=== PATIENT | male | born 1950 | race Caucasian/White ===

== ENCOUNTER 2016-06-16 07:26 | Emergency (ER) | payer OTHER ==
[~2016-06-16] VITALS: Ht 189.2 cm; Wt 90.7 kg
--- NOTE | 2016-06-16 07:39 | ED CARDIAC/CP/PALPITATIONS ---
History of Present Illness General Chief Complaint: Chest Pain Stated Complaint: CP Source: patient, old records Exam Limitations: no limitations Vital Signs & Intake/Output Vital Signs & Intake/Output Vital Signs Date Time Temp Pulse Resp B/P Pulse O2 O2 Flow FiO2 Ox Delivery Rate 06/16 1119 74 109/56 98 Room Air 06/16 1104 74 105/63 06/16 1025 88 18 130/69 99 Nasal 2.0L Cannula 06/16 1021 97.8 88 18 125/71 98 Room Air 06/16 1004 88 125/71 06/16 0959 92 20 130/66 98 Room Air 06/16 0910 97.0 78 20 136/70 98 Room Air 06/16 0836 96 06/16 0821 98 Room Air 06/16 0736 96.6 98 20 203/92 98 Room Air Room Air Allergies Coded Allergies: No Known Allergies (06/16/16) Reconcile Medications No Known Home Medications Triage Note: PT TO ED WITH 2 WEEKS HISTORY OF SOB AFTER SHOVELING SNOW, ALSO C/O CHEST PAIN WITH DEEP INSPIRATION, "IT COMES THEN IT GOES AWAY". 98% ON ROOM AIR. TO [place] FOR EKG. Triage Nurses Notes Reviewed? yes HPI: Patient presented with a 2 week history of chest pain. Patient states it started while shoveling. Patient describes it as a sharp tight pain that increased with movement and inspiration. Patient states that the pain has been controlled with aspirin however this morning he felt like he could not catch his breath and the pain continued despite taking aspirin she comes to the emergency room. The pain is described substernally and along his entire sternum. The pain increased with inspiration, movement and exertion. Patient states that the pain has never been totally relieved over the past 2 weeks but after taking aspirin but has decreased to approximately 2 out of 10. This morning the pain is 10 out of 10. Patient states that he was diagnosed with hypertension years ago but he does not like taking medication so has not been taking them. Patient continues to smoke. (SYBIL ALMAZAN,LYNSEY Green) Past History Travel History Traveled to [place] past 21 day No Medical History Any Pertinent Medical History? 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 No (SYBIL ALMAZAN,LYNSEY Green) Review of Systems Review of Systems Constitutional: Reports: no symptoms. EENTM: Reports: no symptoms. Respiratory: Reports: see HPI, short of breath. Cardiovascular: Reports: see HPI, chest pain. GI: Reports: no symptoms. Genitourinary: Reports: no symptoms. Musculoskeletal: Reports: no symptoms. Skin: Reports: no symptoms. Neurological/Psychological: Reports: no symptoms. Hematologic/Endocrine: Reports: no symptoms. Immunologic/Allergic: Reports: no symptoms. All Other Systems: Reviewed and Negative (SYBIL ALMAZAN,LYNSEY Green) Physical Exam Physical Exam General Appearance: well developed/nourished, alert, awake, anxious, moderate distress Head: atraumatic, normal appearance Eyes: Bilateral: PERRL, EOMI. Ears, Nose, Throat: normal pharynx, normal ENT inspection, hearing grossly normal Neck: normal inspection, supple, full range of motion Respiratory: chest non-tender, no respiratory distress, decreased breath sounds, wheezing (EXP), NO PAIN TO [place] Cardiovascular: regular rate/rhythm, normal peripheral pulses Gastrointestinal: normal bowel sounds, soft, non-tender, no organomegaly Rectal: normal exam, normal rectal tone, heme negative stool Back: normal inspection, normal range of motion Extremities: normal inspection, normal capillary refill, normal range of motion, no edema Neurologic/Psych: no motor/sensory deficits, awake, alert, oriented x 3, normal gait, normal mood/affect Skin: intact, normal color, warm/dry Lymphatic: no anterior cervical jordan Core Measures ACS in differential dx? Yes ASA ordered for poss ACS? Yes-ordered Severe Sepsis Present: No Septic Shock Present: No (SYBIL ALMAZAN,LYNSEY Green) Progress Differential Diagnosis: AMI, aortic dissection, cholecystitis, costochondritis, musculoskeletal pain, myocarditis, pericarditis, pneumonia, pneumothorax, pulmonary embolism Plan of Care: Orders Procedure Date/time Status Add-on Test (ER Only) 06/16 1006 Active EKG 06/16 0936 Active ECHOCARDIOGRAM 06/16 0936 Active LUNG SCAN (V/Q) 06/16 0846 Active RAPID VIRAL INFLUENZA A 06/16 0804 Active PARTIAL THROMBOPLASTIN TIME 06/16 0758 Complete PROTHROMBIN TIME 06/16 0758 Complete Telemetry/[place] Filler 06/16 0739 Active TROPONIN LEVEL 06/16 0739 Complete MAGNESIUM 06/16 0739 Complete D-DIMER 06/16 0739 Complete COMPREHENSIVE METABOLIC PANEL 06/16 0739 Complete CBC WITHOUT DIFFERENTIAL 06/16 0739 Complete EKG 06/16 0729 Active Current Medications Sig/Jabier Start time Last Medication Dose Stop Time Status Admin Tirofiban HCl 12.5 MG Q24H 06/16 1100 AC (Aggrastat) N/A 1 UNIT (No Carrier) Laboratory Tests 06/16/16 0758: Anion Gap 11, Estimated GFR 47 L, BUN/Creatinine Ratio 17.3, Glucose 175 H, Calcium 9.3, Magnesium 1.9, Total Bilirubin 0.6, AST 38, ALT 40, Alkaline Phosphatase 106, Troponin I 2.27 *H, Total Protein 7.6, Albumin 4.0, Globulin 3.6, Albumin/Globulin Ratio 1.1, PT 10.1, INR 0.96, APTT 38 H, D-Dimer 619 H, CBC w Diff NO MAN DIFF REQ, RBC 5.33, MCV 93.1, MCH 31.4 H, RDW 13.9, MPV 9.8, Gran % 71.0, Lymphocytes % 20.1 L, Monocytes % 6.5, Eosinophils % 1.9, Basophils % 0.5, Absolute Granulocytes 8.5 H, Absolute Lymphocytes 2.4, Absolute Monocytes 0.8 H, Absolute Eosinophils 0.2, Absolute Basophils 0.1, PUBS MCHC 33.7 Microbiology 06/16 0804 NASOPHARYN: Influenza Virus A & B Rapid Smear - ORD Diagnostic Imaging: Viewed by Me: Radiology Read. Discussed w/RAD: Radiology Read. Radiology Impression: PATIENT: MELISSA BAKER PRESENT AGE: 65 PATIENT ACCOUNT NO: [id number] : 49 LOCATION: [facility] ORDERING PHYSICIAN: LYNSEY DEVINE MD SERVICE DATE: 06/16/16 EXAM TYPE: RAD - XRY-PORTABLE CHEST XRAY EXAMINATION: XR PORTABLE CHEST CLINICAL INFORMATION: Chest pain COMPARISON: None TECHNIQUE: Portable AP view of the chest was obtained. FINDINGS: No focal consolidation, pleural effusion or pneumothorax. Heart size is normal. No acute osseous abnormality. IMPRESSION: No acute cardiopulmonary process. DICTATED BY: CAMILO BAZAN MD DATE/TIME DICTATED:806 [employer] APPLICATION DEVELOPER:LISA DATE/TIME TRANSCRIBED:06/16/16806 CONFIDENTIAL, DO NOT COPY WITHOUT APPROPRIATE AUTHORIZATION. <Electronically signed in Other Vendor System> SIGNED BY: CAMILO BAZAN MD 06/16/16811 CXR Impression: PATIENT: MELISSA BAKER PRESENT AGE: 65 PATIENT ACCOUNT NO: [id number] : 49 LOCATION: [facility] ORDERING PHYSICIAN: LYNSEY DEVINE MD SERVICE DATE: 06/16/16 EXAM TYPE: RAD - XRY- PORTABLE CHEST XRAY EXAMINATION: XR PORTABLE CHEST CLINICAL INFORMATION: Chest pain COMPARISON: None TECHNIQUE: Portable AP view of the chest was obtained. FINDINGS: No focal consolidation, pleural effusion or pneumothorax. Heart size is normal. No acute osseous abnormality. IMPRESSION: No acute cardiopulmonary process. DICTATED BY: CAMILO BAZAN MD DATE/TIME DICTATED:06/16/16806 [employer] APPLICATION DEVELOPER:LISA DATE/TIME TRANSCRIBED:06/16/16806 CONFIDENTIAL, DO NOT COPY WITHOUT APPROPRIATE AUTHORIZATION. <Electronically signed in Other Vendor System> SIGNED BY: CAMILO BAZAN MD 06/16/16811 Initial ED EKG: ST WITH VOLTAGE CRITERIA FOR LVH, LAFB, NSSTT CHANGES. NO OLD TO COMPARE Repeat EKG: changed Rhythm Strip: normal sinus rhythm Comments: PAIN DECREASED AFTER TORADOL AND BREATHING TREATMENT. PT STATES THAT HE WAS PRESCRIBED NORVASC AND "SOEMTHING ENDS IN -PRIL." Pain continues to be decreased and he states that is now just in the upper sternal area and is only present when he takes a deep breath. His troponin is positive. Repeat EKC shows worsening of this elevation that is nonpitting ST depressions inferiorly as well as lateral T-wave inversions. Patient is currently having an echocardiogram. Dr. Chang is on his way to see and evaluate the patient. Patient is to go to the [facility]. (SYBIL ALMAZAN,LYNSEY Green) Departure Departure Disposition: OTHER [facility] ([facility]) Condition: Critical Clinical Impression Primary Impression: Elevated troponin Secondary Impressions: Acute electrocardiogram changes, Chest pain Referrals: BOY HORTON MD Departure Forms: Customer Survey General Discharge Information Prescriptions: Current Visit Scripts No Known Home Medications Admission Note Spoke With: MARION CHANG MD Documentation of Exam: Documentation of any treatments & extenuating circumstances including Concerns Regarding Discharge (functional status, medication knowledge or non-compliance, living conditions, etc.) that warrant an admission rather than observation: [ Patient be admitted to the ICU. Heparin drip, Aggrastat, loaded with Plavix. Evaluate for potential PE. At this point cardiac catheterization is on hold.] (SYBIL ALMAZAN,LYNSEY Green) Critical Care Note Critical Care Note Critical Care Time: mins: (75 MIN.) (SYBIL ALMAZAN,LYNSEY Green)
[2016-06-16 08:10] LABS: ABSOLUTE BASOPHIL COUNT 0.1 /CUMM (0.0-0.2); ABSOLUTE EOSINOPHIL COUNT 0.2 /CUMM (0.0-0.7); ABSOLUTE GRANULOCYTE CT 8.5 /CUMM (1.4-6.5); ABSOLUTE LYMPH COUNT 2.4 /CUMM (1.2-3.4); ABSOLUTE MONOCYTE COUNT 0.8 /CUMM (0.10-0.60); BASOPHIL % 0.5 % (0.0-2.0); EOSINOPHIL % 1.9 % (0-5); HEMATOCRIT 49.6 % (42-52); MEAN CORPUSCULAR HGB 31.4 PG (27.0-31.0); MEAN CORPUSCULAR HGB CONC 33.7 G/DL (33.0-37.0); MEAN CORPUSCULAR VOLUME 93.1 FL (80.0-94.0); MEAN PLATELET VOLUME 9.8 FL (7.4-10.4); PLATELET COUNT 191 /CUMM (130-400); RBC DISTRIBUTION WIDTH 13.9 % (11.5-14.5); RED BLOOD CELL CT 5.33 /CUMM (4.70-6.10); WHITE BLOOD CELL COUNT 11.9 /CUMM (4.8-10.8)
--- NOTE | 2016-06-16 08:12 | RADIOLOGY REPORT ---
EXAMINATION: XR PORTABLE CHEST CLINICAL INFORMATION: Chest pain COMPARISON: None TECHNIQUE: Portable AP view of the chest was obtained. FINDINGS: No focal consolidation, pleural effusion or pneumothorax. Heart size is normal. No acute osseous abnormality. IMPRESSION: No acute cardiopulmonary process.
[2016-06-16 10:16] LABS: PT 10.1 SEC (9.4-12.5); PTT 38 SEC (25-37)
--- NOTE | 2016-06-16 10:59 | History & Physical ---
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
--- NOTE | 2016-06-16 11:13 | Cons- Cardiology ---
General Information and HPI Consulting Request Date of Consult: 06/16/16 Requested By: MD Angeles David Reason for Consult: Chest pain, ECG changes, positive Troponin I. Source of Information: patient, old records Exam Limitations: poor historian History of Present Illness: Mr. Uriel Barboza is a 65-year-old male with a long-standing history of heavy tobacco use, presumed COPD, untreated hypertension, untreated dyslipidemia , gout, and untreated diabetes mellitus who presented from home with a complaint of "sharp", varying intensity, substernal chest pain with associated nausea, and shortness of breath that was exacerbated by lying down and deep inspiration. He has had 4-5 similar, but less intense and briefer duration episodes over the past couple of weeks with one episode also associated with nausea and some breathing difficulties. In the ED he received oxygen, a breathing treatment, Toradol, morphine sulfate, ASA, IV Lopressor, IV heparin which improved, but did not eliminate the discomfort. Allergies/Medications Allergies: Coded Allergies: No Known Allergies (06/16/16) Home Med List: No Known Home Medications Review of Systems Review of Systems: A 14 point system review was obtained and was noncontributory, other than for the fact the patient is to claudication. 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 Surgical History Surgical History: non-contributory Psychosocial History ETOH Use: denies use Illicit Drug Use: denies illicit drug use Exam & Diagnostic Data Vital Signs and I&O Vital Signs Date Time Temp Pulse Resp B/P Pulse O2 O2 Flow FiO2 Ox Delivery Rate 06/16 1025 88 18 130/69 99 Nasal 2.0L Cannula 06/16 1021 97.8 88 18 125/71 98 Room Air 06/16 1004 88 125/71 06/16 0959 92 20 130/66 98 Room Air 06/16 0910 97.0 78 20 136/70 98 Room Air 06/16 0836 96 06/16 0821 98 Room Air 06/16 0736 96.6 98 20 203/92 98 Room Air Room Air Intake & Output 06/16 1600 06/16 0800 06/16 0000 06/15 1600 06/15 0800 06/15 0000 Intake Total 0 Output Total Balance 0 Intake, Oral 0 Patient 200 lb Weight Physical Exam: Well developed, well-nourished elderly male in mild distress with nasal oxygen in place. Vital signs: See above. HEENT: Normocephalic, atraumatic, EOMI, moist mucous membranes. Neck: No JVD, no bruits. Lungs: Decreased breath sounds bilaterally. Heart: S1, S2 (both distant) with no murmur, gallop, or rub appreciated. PMI fifth ICS at [facility]. Abdomen: Soft, nontender, positive bowel sounds. Extremities: No edema. Labs/Eriberto Results: Laboratory Tests 06/16 0758 Chemistry Sodium (137 - 145 mmol/L) 141 Potassium (3.5 - 5.1 mmol/L) 4.2 Chloride (98 - 107 mmol/L) 103 Carbon Dioxide (22 - 30 mmol/L) 26 Anion Gap (5 - 16) 11 BUN (9 - 20 mg/dL) 26 H Creatinine (0.7 - 1.2 mg/dL) 1.5 H Estimated GFR (>60 ml/min) 47 L BUN/Creatinine Ratio (7 - 25 %) 17.3 Glucose (65 - 99 mg/dL) 175 H Calcium (8.4 - 10.2 mg/dL) 9.3 Magnesium (1.6 - 2.3 mg/dL) 1.9 Total Bilirubin (0.2 - 1.3 mg/dL) 0.6 AST (17 - 59 U/L) 38 ALT (21 - 72 U/L) 40 Alkaline Phosphatase (< 127 U/L) 106 Troponin I (<0.11 ng/ml) 2.27 *H Total Protein (6.3 - 8.2 g/dL) 7.6 Albumin (3.5 - 5.0 g/dL) 4.0 Globulin (1.9 - 4.2 gm/dL) 3.6 Albumin/Globulin Ratio (1.1 - 2.2 %) 1.1 Coagulation PT (9.4 - 12.5 SEC) 10.1 INR (0.90 - 1.17) 0.96 APTT (25 - 37 SEC) 38 H D-Dimer (70 - 232 ng/ml) 619 H Hematology CBC w Diff NO MAN DIFF REQ WBC (4.8 - 10.8 /CUMM) 11.9 H RBC (4.70 - 6.10 /CUMM) 5.33 Hgb (14.0 - 18.0 G/DL) 16.7 Hct (42 - 52 %) 49.6 MCV (80.0 - 94.0 FL) 93.1 MCH (27.0 - 31.0 PG) 31.4 H RDW (11.5 - 14.5 %) 13.9 Plt Count (130 - 400 /CUMM) 191 MPV (7.4 - 10.4 FL) 9.8 Gran % (42.2 - 75.2 %) 71.0 Lymphocytes % (20.5 - 51.1 %) 20.1 L Monocytes % (1.7 - 9.3 %) 6.5 Eosinophils % (0 - 5 %) 1.9 Basophils % (0.0 - 2.0 %) 0.5 Absolute Granulocytes (1.4 - 6.5 /CUMM) 8.5 H Absolute Lymphocytes (1.2 - 3.4 /CUMM) 2.4 Absolute Monocytes (0.10 - 0.60 /CUMM) 0.8 H Absolute Eosinophils (0.0 - 0.7 /CUMM) 0.2 Absolute Basophils (0.0 - 0.2 /CUMM) 0.1 PUBS MCHC (33.0 - 37.0 G/DL) 33.7 Diagnostic Data EKG Results (06/16/2016) sinus rhythm, left atrial abnormality, LAFB, incomplete RBBB, abnormal precordial R wave progression leads V1-V2 and right precordial ST segment elevation and diffuse ST-T wave abnormalities. CXR Results (06/16/2016) no acute cardiopulmonary process. Assessment/Plan Assessment/Plan Acute coronary syndrome (ST elevation myocardial infarction) in this elderly male with risk equivalents (diabetes mellitus, vascular disease with claudication) and multiple risk factors for coronary artery disease (heavy tobacco use, dyslipidemia, hypertension, diabetes mellitus, gout, etc.) who presents with chest discomfort with pleuritic components, but also electrocardiographic evidence of probable anteroseptal wall myocardial infarction, positive troponin I, etc. Given the pleuritic components to the chest pain and the elevated d-dimer, the initial evaluation was to include a CT angiogram, but given his elevated BUN/ creatinine VQ scan scheduled instead. Recommendations: * ICU admission pending transfer to [facility] for cardiac catheterization with an eye towards revascularization with our interventionalist (Brant Thao M.D., PhD) to be the accepting physician, follow-up Troponins, ECGs, etc. * Echocardiogram to assess for segmental wall motion abnormalities, overall left ventricular systolic/diastolic function, RV function, estimated PA systolic pressures, etc. * Continue nasal O2, IV heparin, beta elicia, statin, antiplatelets (aspirin, clopidogrel 600 mg load), etc. * Hold TAMARA inhibitor or angiotensin receptor elicia therapy until we are confident that his renal function is at his baseline. * DVT prophylaxis being addressed by IV heparin. * Psychiatric evaluation to help determine the etiology for his medical noncompliance, etc. Further recommendations will follow, Thank you. Consult Acknowledgment - Thank you for your consult request.
--- NOTE | 2016-06-16 12:36 | ECHOCARDIOGRAM REPORT ---
MELISSA BAKER Age: 65 : 1950 Gender: M Exam Date: 06/16/2016 10:01 Exam Location: ER Ht (in): 74 Wt (lb): 200 BSA: 2.18 BP: 136 / 70 Ordering Physician: LYNSEY DEVINE MD Referring Physician: LYNSEY DEVINE MD Technologist: Fede Meng KATIE Room Number: ER 9 Indications: Chest Pain Rhythm: Sinus Technical Quality: Fair FINDINGS Left Ventricle Normal size left ventricle. Normal left ventricular wall thickness. Hypokinetic distal septum septum and apex. No other obvious regional wall motion abnormalities. Borderline normal left ventricular ejection fraction estimated at 50-55%. Abnormal relaxation filling pattern of the left ventricle for age (stage 1 diastolic dysfunction). Right Ventricle Normal right ventricular size and function. Right Atrium Normal right atrial size. Left Atrium Mild left atrial dilatation. Mitral Valve Structurally normal mitral valve. No mitral regurgitation. Aortic Valve Mild aortic sclerosis. No aortic valve stenosis or regurgitation. Tricuspid Valve Structurally normal tricuspid valve. Trace tricuspid regurgitation. No evidence of pulmonary hypertension. Right ventricular systolic pressure estimated to be within the normal range at 27 mmHg. Pulmonic Valve Pulmonic valve not well visualized, grossly normal. No pulmonic regurgitation. Pericardium No pericardial effusion. Great Vessels Normal size aortic root. Normal size inferior vena cava. CONCLUSIONS Normal size left ventricle. Normal left ventricular wall thickness. Hypokinetic distal septum septum and apex. No other obvious regional wall motion abnormalities. Borderline normal left ventricular ejection fraction estimated at 50-55%. Abnormal relaxation filling pattern of the left ventricle for age (stage 1 diastolic dysfunction). Normal right ventricular size and function. Normal right atrial size. Mild left atrial dilatation. Trace tricuspid regurgitation. No evidence of pulmonary hypertension. Ziyad Ghotra M.D. (Electronically Signed) Final Date: 16 June 2016 12:35 MEASUREMENTS (Male / Female) Normal Values 2D ECHO LV Diastolic Diameter PLAX 5.2 cm 4.2 - 5.9 / 3.9 - 5.3 cm LV Systolic Diameter PLAX 3.3 cm 2.1 - 4.0 cm LV Fractional Shortening PLAX 36.5 % 25 - 46 % LV Ejection Fraction 2D Teich 65.9 % IVS Diastolic Thickness 0.9 cm LVPW Diastolic Thickness 1.0 cm LV Relative Wall Thickness 0.4 LVOT Diameter 2.2 cm Aortic Root Diameter 3.1 cm LA Systolic Diameter LX 3.0 cm 3.0 - 4.0 / 2.7 - 3.8 cm LA Volume 50.0 cm 18 - 58 / 22 - 52 cm Ascending Aorta Diameter 3.1 cm DOPPLER AV Peak Velocity 117.0 cm/s AV Peak Gradient 5.5 mmHg AV Mean Velocity 78.8 cm/s AV Mean Gradient 3.0 mmHg AV Velocity Time Integral 24.2 cm LVOT Peak Velocity 90.2 cm/s LVOT Peak Gradient 3.3 mmHg LVOT Mean Velocity 57.3 cm/s LVOT Mean Gradient 2.0 mmHg LVOT Velocity Time Integral 21.3 cm LVOT Stroke Volume 81.0 cm AV Area Cont Eq vti 3.3 cm AV Area Cont Eq pk 2.9 cm MV Peak Velocity 75.8 cm/s MV Peak Gradient 2.3 mmHg MV Mean Velocity 53.3 cm/s MV Mean Gradient 1.0 mmHg Mitral E Point Velocity 61.7 cm/s Mitral A Point Velocity 79.0 cm/s Mitral E to A Ratio 0.8 MV PHT Velocity 80.1 cm/s MV Deceleration [place] 492.0 cm/s MV Pressure Half Time 48.8 ms MV Area PHT 4.5 cm MV Deceleration Time 246.0 ms TR Peak Velocity 236.0 cm/s TR Peak Gradient 22.3 mmHg Right Atrial Pressure 5.0 mmHg Pulmonary Artery Systolic Pressu 27.3 mmHg Right Ventricular Systolic Press 27.3 mmHg PV Peak Velocity 89.6 cm/s PV Peak Gradient 3.2 mmHg PV Mean Velocity 62.5 cm/s PV Mean Gradient 2.0 mmHg PV Velocity Time Integral 22.0 cm
--- NOTE | 2016-06-16 12:42 | NUCLEAR MEDICINE REPORT ---
EXAMINATION: PULMONARY VENTILATION PERFUSION STUDY CLINICAL INFORMATION: Chest pain and dyspnea on exertion, elevated d-dimer. COMPARISON: No previous lung scan is available for comparison. A chest radiograph dated 06/16/2016, the same date as this lung scan, is available for comparison. TECHNIQUE: Serial gamma scintillation camera images were obtained over the posterior chest during the single breath, equilibrium rebreathing and washout of 5.9 mCi Xe 133 gas. The patient then received 3.6 mCi Tc-99m MAA intravenously and a 6-view perfusion study was performed. FINDINGS: Ventilation images: On the single breath and equilibrium images there is homogeneous distribution of gas bilaterally. During the washout phase there is no abnormal retention. Perfusion images: No segmental perfusion defects are present. There is minimal heterogeneity posteriorly in the left lower lobe. There are no focal or anatomic appearing perfusion defects. A small rounded focal defect visualized on the BEAN view in the right lung apex is likely an attenuation artifact from an overlying ECG monitoring lead, visible on the radiograph dated 06/16/2016. IMPRESSION: Very low probability of pulmonary embolism.
[2016-06-16 13:03] VITALS: BP 107/57
== END 2016-06-16 13:24 | disposition short-term general hospital (02) ==
LOC: ERH 07:26
PROVIDERS: Emergency Medicine
DX: R77.8 Other specified abnormalities of plasma proteins (principal); R94.31 Abnormal electrocardiogram [ECG] [EKG]; R07.9 Chest pain, unspecified; I10 Essential (primary) hypertension; J44.9 Chronic obstructive pulmonary disease, unspecified; J43.9 Emphysema, unspecified; Z72.0 Tobacco use
CPT/HCPCS: 1263; 78582; 87804; 87804-59; 93005; 93010; 93306; 96374; 96375; 99291; A9540; A9558; J1644; J1885; J3246

== ENCOUNTER 2016-07-07 15:16 | Inpatient (IN) | payer OTHER ==
[~2016-07-07] VITALS: Ht 188 cm; Wt 84.8 kg
--- NOTE | 2016-07-07 15:21 | ED CARDIAC/CP/PALPITATIONS ---
History of Present Illness General Chief Complaint: Chest Pain Stated Complaint: SIB CHARLENE FOR EKG CHANGES Source: patient Exam Limitations: poor historian Allergies Coded Allergies: No Known Allergies (06/16/16) Triage Nurses Notes Reviewed? yes Onset: Abrupt Duration: constant Timing: single episode today Quality/Severity: mild Radiation: no radiation HPI: Patient is a 65-year-old male with a past medical history of COPD and coronary artery disease in which patient presented to the emergency room on 06/16/2016 for chest pain in which he was transferred to another facility for catheterization in which patient states that he has cardiac stents placed and currently is on Plavix. Patient states that since the event he's been complaining of persistent generalized weakness and fatigue in which patient is presents to emergency room for a 14 hour history of persistent mild left-sided anterior chest pain. Patient states that laying down and deep relation makes worse. Patient took a half tablet of 325 aspirin prior to arrival Patient denies any fevers chills or hemoptysis cough arm pain jaw pain nausea vomiting palpitations or diaphoresis. Patient does complain of persistent bilateral lower extremity edema. No new changes. (AZUL COTTON,NATALIE) Vital Signs & Intake/Output Vital Signs & Intake/Output Vital Signs Date Time Temp Pulse Resp B/P Pulse O2 O2 Flow FiO2 Ox Delivery Rate 07/10 0700 97.1 80 20 112/60 97 Room Air 07/09 2300 96.0 79 20 116/70 99 Room Air 07/09 1641 98.3 82 20 110/68 96 Room Air ED Intake and Output 07/10 0000 07/09 1200 Intake Total 960 480 Output Total 400 Balance 960 80 Intake, Oral 960 480 Output, Urine 400 Reconcile Medications Allopurinol 100 MG TABLET 1 TAB PO PRN GOUT (Reported) Aspirin (Ecotrin*) 325 MG TABLET.DR 1 TAB PO DAILY HEART/BLOOD (Reported) Atorvastatin Calcium 40 MG TABLET 1 TAB PO QPM CHOLESTEROL (Reported) Clopidogrel Bisulfate (Clopidogrel) 75 MG TABLET 1 TAB PO DAILY BLOOD THINNER (Reported) Lisinopril 10 MG TABLET 1 TAB PO DAILY BP (Reported) (KRISTINE ALMAZAN,RAMIRO Sykes) Past History Travel History Traveled to [place] past 21 day No Medical History Any Pertinent Medical History? see below for history Neurological: NONE EENT: NONE Cardiovascular: hypertension, (DOES TAKE THE MEDS) Respiratory: COPD, emphysema Gastrointestinal: NONE Hepatic: NONE Renal: NONE Musculoskeletal: gout Psychiatric: NONE Endocrine: NONE Blood Disorders: NONE Cancer(s): NONE EDITOR INDEX/Reproductive: NONE Surgical History Surgical History: non-contributory Psychosocial History What is your primary language Faroese Family History Hx Contributory? No (NATALIE SALAZAR) Review of Systems Review of Systems Constitutional: Reports: see HPI, malaise, weakness. EENTM: Reports: no symptoms. Respiratory: Reports: see HPI. Cardiovascular: Reports: see HPI, chest pain. GI: Reports: no symptoms. Genitourinary: Reports: no symptoms. Musculoskeletal: Reports: no symptoms. Skin: Reports: no symptoms. Neurological/Psychological: Reports: no symptoms. Hematologic/Endocrine: Reports: no symptoms. Immunologic/Allergic: Reports: no symptoms. All Other Systems: Reviewed and Negative (NATALIE SALAZAR) Physical Exam Physical Exam General Appearance: no apparent distress, alert Cardiovascular: regular rate/rhythm Comments: Well-developed well-nourished person in no acute distress HEENT: Normal EENT exam, Neck: Supple, no lymphadenopathy, normal range of motion without pain or tenderness Back: Nontender, no CVA tenderness. Cardiovascular: Regular rate and rhythms no murmurs rubs or gallops, normal JVP Respiratory: Chest nontender. No respiratory distress.breath sounds clear to auscultation bilaterally Abdomen: Soft, nontender nondistended, no appreciable organomegaly. Normal bowel sounds. No ascites Extremity: Trace bilateral lower extremity pitting edema, no calf tenderness to palpation, normal and equal pulses. Neuro: Alert oriented x3, motor sensory normal, Skin: No appreciable rash on exposed skin, skin is warm and dry. Psych: Mood and affect is normal, memory and judgment is normal. Core Measures ACS in differential dx? Yes Severe Sepsis Present: No Septic Shock Present: No (NATALIE SALAZAR) Progress Differential Diagnosis: AMI, aortic dissection, atrial fibrillation, cholecystitis, CHF/pulm edema, costochondritis, hyperkalemia, hypovolemia, hyperthyroid, hyperventilation, intracranial hemorrhage, musculoskeletal pain, myocarditis, pancreatitis, pericarditis, pneumonia, pneumothorax, PSVT, pulmonary embolism, PUD/GERD, PVCs/PACs, respiratory failure, sepsis, unstable angina, V-fib/V-Tach, WPW syndrome Diagnostic Imaging: Viewed by Me: Radiology Read. Initial ED EKG: SINUS RHYTHM NOTED AT [address] ELEVATION Prior EKG: changed Comments: PATIENT: MELISSA BAKER PRESENT AGE: 65 PATIENT ACCOUNT NO: [id number] : 49 LOCATION: [facility] ORDERING PHYSICIAN: NATALIE COTTON SERVICE DATE: 07/07/16 EXAM TYPE: RAD - XRY-CHEST XRAY, PA AND LATERAL EXAMINATION: XR CHEST CLINICAL INFORMATION: Chest pain COMPARISON: None TECHNIQUE: 2 views of the chest were obtained. FINDINGS: Dense opacity at the posterior left costophrenic angle. This can be due to effusion and possible underlying infiltrate or atelectasis. No pulmonary vascular congestion. Heart size is normal. Cardiac and mediastinal contours are normal. IMPRESSION: Density at posterior left lung base probably due to left pleural effusion and left basilar infiltrate/atelectasis. DICTATED BY: ALEX TONG MD DATE/TIME DICTATED:07/07/161642 ADDICTION SOCIAL WORKER:LISA DATE/TIME TRANSCRIBED:07/07/161642 CONFIDENTIAL, DO NOT COPY WITHOUT APPROPRIATE AUTHORIZATION. (AZUL COTTON,NATALIE) Plan of Care: Orders Procedure Date/time Status CBC WITHOUT DIFFERENTIAL 07/10 599 Complete BASIC ELECTROLYTES PLUS BUN&CR 07/10 599 Complete House Staff 07/10 UNK Active Current Medications Sig/Jabier Start time Last Medication Dose Stop Time Status Admin Oxycodone/ 1 TAB Q6P PRN 07/07 2014 AC Acetaminophen (Percocet) Laboratory Tests 07/10/16 0730: Anion Gap 10, Estimated GFR 43 L, BUN/Creatinine Ratio 20.6, CBC w Diff NO MAN DIFF REQ, RBC 4.26 L, MCV 91.2, MCH 30.0, RDW 15.0 H, MPV 10.1, Gran % 74.1, Lymphocytes % 14.4 L, Monocytes % 6.7, Eosinophils % 4.3, Basophils % 0.5, Absolute Granulocytes 10.9 H, Absolute Lymphocytes 2.1, Absolute Monocytes 1.0 H, Absolute Eosinophils 0.6, Absolute Basophils 0.1, PUBS MCHC 32.9 L Patient currently is in no apparent distress EKG was evaluated by me and Dr. Britton and which he discussed patient with Dr. Chang who advised patient to begin regimen concerns of pericarditis in which aspirin was requested by Dr. Chang. Patient was trialed with 1 tablet of sublingual nitroglycerin without changes of mild 110 chest pain. EKG does show significant EKG abnormalities of ST elevation in leads V2-V6 Patient had negative initial troponin. Discussed admission with Dr. Britton who discussed admission with Dr. Chang who will accept patient under his service to telemetry. Medicine will be consult with. Patient currently is in no apparent distress and is understanding of admission and disposition and plan. (NATALIE SALAZAR) Comments: 07/07/2016 3:51:[address] Chang paged. 07/07/2016 4:49:28 PM I discussed this patient's case with Dr. Chang after his ED EKG. Dr. Chang faxed us his own EKG for comparison. I have just discussed his case with Dr. Chang again now that he is had a chance to see a fax of our EKG. He agrees that there seems to be ST segment elevations rather diffusely. Although he still concerned for acute coronary syndrome, he feels pericarditis is also a likelihood. I have updated him on test results currently. We are awaiting the chest x-ray and troponin results. I will speak with him again at that point for a final plan. 07/07/2016 5:20:[address] Chang updated on negative troponin. Patient to be admitted to his service for pericarditis. (KRISTINE ALMAZAN,RAMIRO Sykes) Departure Departure Disposition: STILL A PATIENT Condition: Stable Clinical Impression Primary Impression: Pericarditis Qualifiers: Pericarditis type: unspecified type Chronicity: acute Qualified Code: I30.9 - Acute pericarditis, unspecified Secondary Impressions: EKG, abnormal Referrals: RICKEY LOPEZ APRN (PCP/Family) Departure Forms: Customer Survey General Discharge Information Admission Note Documentation of Exam: Documentation of any treatments & extenuating circumstances including Concerns Regarding Discharge (functional status, medication knowledge or non-compliance, living conditions, etc.) that warrant an admission rather than observation: (NATALIE SALAZAR) Admission Note Spoke With: MARION CHANG MD Documentation of Exam: Documentation of any treatments & extenuating circumstances including Concerns Regarding Discharge (functional status, medication knowledge or non-compliance, living conditions, etc.) that warrant an admission rather than observation: Patient presents for evaluation of chest pain and EKG changes. Patient was evaluated by Dr. Chang and sent to the emergency department concerned about pericarditis. Although patient's clinical presentation is somewhat atypical for pericarditis, his EKG shows diffuse ST segment elevations consistent with this condition. Pericarditis places this patient at risk of constriction of the pericardium, pericardial effusion and pericardial tamponADE. Given this and his chest pain I feel he is a poor candidate for outpatient management and would have great difficulty in compliance with outpatient treatment plan. I feel he now requires hospitalization for monitoring medications and cardiac monitoring for possible associated dysrhythmias. Vital signs should also be monitored and serial troponins obtained. Echocardiogram should also be considered. Medical consultation should also be considered. Given the patient's medical comorbidities I feel he will require a multiple day hospitalization. PA/MANAGER STEEL Co-Sign Statement Statement: ED Attending supervision documentation- [X] I saw and evaluated the patient. I have also reviewed all the pertinent lab results and diagnostic results. I agree with the findings and the plan of care as documented in the PA's/MANAGER STEEL's documentation. [] I have reviewed the ED Record and agree with the PA's/MANAGER STEEL's documentation. [] Additions or exceptions (if any) to the PAs/MANAGER STEEL's note and plan are summarized below: [] (KRISTINE ALMAZAN,RAMIRO Sykes) PA/MANAGER STEEL Co-Sign Statement Statement: ED Attending supervision documentation- [X] I saw and evaluated the patient. I have also reviewed all the pertinent lab results and diagnostic results. I agree with the findings and the plan of care as documented in the PA's/MANAGER STEEL's documentation. [X] I have reviewed the ED Record and agree with the PA's/MANAGER STEEL's documentation. [] Additions or exceptions (if any) to the PAs/MANAGER STEEL's note and plan are summarized below: [] (RAMY ALMAZAN,KAMILLE) Critical Care Note Critical Care Note Critical Care Time: 30-74 min (NATALIE SALAZAR)
--- NOTE | 2016-07-07 15:28 | NUR ---
SENT TO ED FROM DR CHANG'S OFFICE AFTER EKG REVEALED EKG CHANGES AND PLAN TO R/O SC. REPORTS L SIDED CHEST PAIN/PRESSURE SINCE THIS AM, HAS HAD THIS PAIN IN THE PAST AND RESOLVED ON ITS OWN. DENIES MITIGATING FACTORS OR SOB. STATES PAIN DID WORSEN WITH DEEP INSPIRATION THIS MORNING. CURRENT PAIN 05/02. STATES HE TOOK 1/2 OF A 325 ASA THIS AM AND HIS PLAVIX, HAD STENT PLACED ON May. AAOX3 ON ARRIVAL, DENIES N/V/D.
--- NOTE | 2016-07-07 15:40 | NUR ---
RECIEVED TO ROOM 21. EKG, LABS AND TWO IV PLACED. PT ON MONITOR IN SINUS RHYTHM WITH ST ELEVATION SEEN ON MONITOR. SATS ON ROOM AIR 97%. PLACED ON 2 LITERS A PRECAUTION. PT COMPLAINING OF INTERMITTENT CHEST PAIN, WORSE WITH DEEP BREATHING. PT WITH HX OF CAD AND STENTS. TOOK HALF OF A REGULAR STRENGHT ASA TODAY. NATALIE COTTON AND DR CARMONA AT BEDSIDE AT PRESENT
[2016-07-07 15:41] LABS: ABSOLUTE BASOPHIL COUNT 0 /CUMM (0.0-0.2); ABSOLUTE EOSINOPHIL COUNT 0.3 /CUMM (0.0-0.7); ABSOLUTE GRANULOCYTE CT 13.4 /CUMM (1.4-6.5); ABSOLUTE LYMPH COUNT 1.5 /CUMM (1.2-3.4); BASOPHIL % 0.2 % (0.0-2.0); EOSINOPHIL % 2.1 % (0-5); GRANULOCYTE % 82.2 % (42.2-75.2); HEMATOCRIT 41.9 % (42-52); MEAN CORPUSCULAR HGB 30.3 PG (27.0-31.0); MEAN CORPUSCULAR HGB CONC 33.3 G/DL (33.0-37.0); MEAN PLATELET VOLUME 9.4 FL (7.4-10.4); PLATELET COUNT 378 /CUMM (130-400); RBC DISTRIBUTION WIDTH 15.1 % (11.5-14.5); WHITE BLOOD CELL COUNT 16.3 /CUMM (4.8-10.8)
--- NOTE | 2016-07-07 15:53 | NUR ---
SL NTG GIVEN TO PATIENT
--- NOTE | 2016-07-07 16:02 | NUR ---
ASA GIVEN TO PT. PT WITH NO RELIEF OF CHEST DISCOMFORT AFTER 1 NTG. PT ASKING TO WATCH TV
[2016-07-07] MEDS ORDERED: ATORVASTATIN CA40 M1 PO (16:41)
[2016-07-07] MEDS ORDERED: LISINOPRIL10 M1 PO (16:42)
[2016-07-07] MEDS ORDERED: ALLOPURINOL100 M1 PO (16:42)
[2016-07-07] MEDS ORDERED: CLOPIDOGREL75 M1 PO (16:42)
[2016-07-07] MEDS ORDERED: ASPIRIN EC325 M2 PO (16:43)
--- NOTE | 2016-07-07 16:49 | RADIOLOGY REPORT ---
EXAMINATION: XR CHEST CLINICAL INFORMATION: Chest pain COMPARISON: None TECHNIQUE: 2 views of the chest were obtained. FINDINGS: Dense opacity at the posterior left costophrenic angle. This can be due to effusion and possible underlying infiltrate or atelectasis. No pulmonary vascular congestion. Heart size is normal. Cardiac and mediastinal contours are normal. IMPRESSION: Density at posterior left lung base probably due to left pleural effusion and left basilar infiltrate/atelectasis.
--- NOTE | 2016-07-07 16:59 | Cons- Cardiology ---
General Information and HPI Consulting Request Date of Consult: 07/07/16 Requested By: Logan Britton Greg Reason for Consult: Chest pain and abnormal ECG. Source of Information: patient, old records Exam Limitations: poor historian History of Present Illness: Mr. Uriel Barboza is a 65-year-old male with a history of long-standing, recently discontinued tobacco use, presumed COPD, hypertension, dyslipidemia, gout, diabetes mellitus, and coronary artery disease with a recent acute coronary syndrome (anterior STEMI) s/p PCI on 06/16/2016 who was sent from our office to the ED with complaints of chest pain and electrocardiographic changes. Mr. Barboza presented to the ED on 06/16/2016 with chest pain and electrocardiographic evidence of an anterior STEMI that prompted emergency transfer to the cardiac catheterization laboratory at [facility] where the diagnostic catheterization revealed: LM-patent, LAD-95% long mid vessel lesion at the takeoff of the second diagonal branch, first diagonal branch with 30% ostial stenosis, LCx-mild luminal irregularities, RCA dominant with 80% proximal stenosis and luminal irregularities, LV gram-EF 50% which prompted successful PCI/KIRK (Resolute) of the culprit LAD stenosis was 0% residual narrowing and JENS 3 flow, and PCI/POBA of the second diagonal branch with 20% residual stenosis and JENS-3 flow. He was brought back to the cardiac catheterization laboratory at [facility] electively on 06/28/2016 and had successful PCI/KIRK (Resolute) of the proximal RCA stenosis to 0% residual and JENS-3 flow. He was seen in our office earlier today for a post cardiac catheterization check and reported substernal chest tightness that was worse with inspiration, but not lying down and had diffuse ST segment changes on his electrocardiogram. Based on the above, he was taken to the ED for further evaluation and management. Allergies/Medications Allergies: Coded Allergies: No Known Allergies (06/16/16) Home Med List: Allopurinol 100 MG TABLET 1 TAB PO PRN GOUT (Reported) Aspirin (Ecotrin*) 325 MG TABLET.DR 1 TAB PO DAILY HEART/BLOOD (Reported) Atorvastatin Calcium 40 MG TABLET 1 TAB PO QPM CHOLESTEROL (Reported) Clopidogrel Bisulfate (Clopidogrel) 75 MG TABLET 1 TAB PO DAILY BLOOD THINNER (Reported) Lisinopril 10 MG TABLET 1 TAB PO DAILY BP (Reported) Review of Systems Review of Systems: A 14 point system review was obtained and was noncontributory, other than as above. Past History Travel History Traveled to [place] past 21 day No Medical History Neurological: NONE EENT: NONE Cardiovascular: hypertension, hyperlipidemia, STEMI, (DOES TAKE THE MEDS) STENT PLACEMENT 06/16, PCI/KIRK to LAD and RCA; PCI/POBA ostial Dx 2. 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 Vital signs: See above. HEENT: Normocephalic, atraumatic, EOMI, slightly dry mucous membranes. Neck: No JVD, no bruits. Lungs: Decreased breath sounds bilaterally. Heart: S1, S2 with no murmur, gallop, or rub appreciated. PMI fifth ICS at MCL. Abdomen: Soft, nontender, positive bowel sounds. Extremities: No edema. Assessment/Plan Assessment/Plan Mr. Barboza is a 65-year-old male with a history of long-standing tobacco use, presumed COPD, HTN, HLD, & DM who presents with vague URI symptoms and atypical chest pain with a pleuritic component and markedly abnormal electrocardiogram, on a background of known CAD with recent ACS/STEMI and successful PCI/KIRK of culprit LAD stenosis; subsequent successful elective PCI/ KIRK of RCA stenosis. His history and electrocardiographic changes are most suggestive of pericardial inflammation and not an acute coronary syndrome, however, further evaluation and management is necessary to exclude an ACS and to manage the suspected pericardial inflammation. Recommendations: * ED evaluation and management. Case discussed in detail with the attending ED physician (Nikko Britton M.D.). * Follow-up ECGs to look for evolutionary changes. * Serial troponins, ESR, CRP, routine laboratory work. * CXR: PA and lateral to assess size of cardiac silhouette, vascularity, etc. * Given recent STEMI would recommend aspirin over other NSAID's which can delay myocardial healing. A regimen of aspirin 650-1000 mg orally 3 times daily for one to two weeks with weekly decreases once the patient is asymptomatic and his CRP has normalized PLUS colchicine 0.5-0.6 mg orally twice daily for 3 months and then discontinue AND a PPI (e.g., omeprazole) for GI protection during therapy. * Naturally, if chest discomfort becomes more characteristics for an ACS, electrocardiographic changes are consistent with evolving RI, troponins are significantly elevated, echocardiogram reveals new segmental wall motion abnormalities, etc. need to shift management strategy to that for an ACS, including possible transfer for cardiac catheterization, etc. * Repeat echocardiogram to assess for regional wall motion abnormalities, left ventricular function, pericardial effusion, etc. * Continue his other cardiac medications for now. * DVT prophylaxis. Further recommendations will follow, Thank you. Consult Acknowledgment - Thank you for your consult request.
--- NOTE | 2016-07-07 17:04 | NUR ---
PT RESTING QUIETLY, WATCHING TV
--- NOTE | 2016-07-07 17:31 | NUR ---
PT RESTING QUIETLY . STATES NO CHANGE IN CHEST DISCOMFORT
--- NOTE | 2016-07-07 18:01 | NUR ---
NATALIE LIANG PA IN TO SEE PT AND DISCUSS DIAGNOSIS AND PLAN OF CARE
--- NOTE | 2016-07-07 20:07 | NUR ---
Emergency Dept [facility] Admit Note: To be admitted to [facility] by CHARLENE with PERICARDITIS as the diagnosis, to 174-02 location. Nursing Ceramist and admitting notified 07/07/16 at 1936
--- NOTE | 2016-07-07 20:16 | NUR ---
PT GIVEN BOX DINNER TO EAT
--- NOTE | 2016-07-07 20:16 | History & Physical ---
General Information and [facility] MD Statement: I have seen and personally examined MELISSA BAKER and documented this H&P. The patient is a 65 year old M who presented with a patient stated chief complaint of [chest pain]. Source of Information: patient, old records Exam Limitations: no limitations History of Present Illness: This is 65-year-old male with past medical history of CAD with anterior wall ME in 2016 status post PCI/KRIK of culprit LAD stenosis and RCA stenosis, presumed COPD, hypertension, hyperlipidemia, CK stage III, type 2 diabetes not on treatment was sent in by his psychology physician Dr. Ghotra after his routine evaluation post PCI today at his office patient complain of new onset left-sided chest pain. Patient was seen and evaluated in [facility] in May 2016 for chest pain and found to have anterior wall ME and transferred to [facility] time he underwent PCI for 95% occluded LAD and subsequently went for elective PCI on 06/28/2016 for 80% proximal RCA occlusion with successful stenting with JENS-3 flow. Post first PCI patient had left-sided chest pain and was evaluated by his psychology physician and it was thought noncardiac pain which resolved spontaneously. Since his second PCI, 2 days prior to admission patient started having left-sided chest pain which was worse on inspiration, 3-5/10 in severity, nonradiating, not related with exertion. Patient was seen by Dr. Ghotra this morning and he complained of this new onset chest pain, EKG was done in his office revealed persistent lateral wall ST elevation. Patient was sent to ER for further evaluation where EKG showed persistent ST elevation in anterolateral lateral leads with T inversion in V1 v2. Patient also reported being tired for past 1 week with loss of appetite. He denies any dizziness, lightheadedness, abdominal pain, nausea, vomiting or urinary symptoms. Allergies/Medications Allergies: Coded Allergies: No Known Allergies (06/16/16) Home Med list Allopurinol 100 MG TABLET 1 TAB PO PRN GOUT (Reported) Aspirin (Ecotrin*) 325 MG TABLET. 1 TAB PO DAILY HEART/BLOOD (Reported) Atorvastatin Calcium 40 MG TABLET 1 TAB PO QPM CHOLESTEROL (Reported) Clopidogrel Bisulfate (Clopidogrel) 75 MG TABLET 1 TAB PO DAILY BLOOD THINNER (Reported) Lisinopril 10 MG TABLET 1 TAB PO DAILY BP (Reported) Compliance With Home Meds: FAIR Past History Travel History Traveled to [place] past 21 day No Medical History Neurological: NONE EENT: NONE Cardiovascular: CAD, hypertension, hyperlipidemia, STEMI, (DOES TAKE THE MEDS) STENT PLACEMENT 06/16 PCI/KIRK to LAD and RCA; PCI/POBA ostial Dx 2. with Respiratory: COPD, emphysema Gastrointestinal: NONE Hepatic: NONE Renal: SAMRA Musculoskeletal: gout Psychiatric: NONE Endocrine: diabetes Blood Disorders: NONE Cancer(s): NONE HSE ADVISOR/Reproductive: NONE Surgical History Surgical History: non-contributory ECHO Results (as available) Date of last Echo 06/16/16 EF% 50 Past Family/Social History Family History Relations & Conditions if any FATHER FH: colon cancer BROTHER FH: diabetes mellitus Psychosocial History Where do you live? Home Who Do You Live With? self Services at Home: None Primary Language: Turkmen Smoking Status: Heavy Tobacco Smoker ETOH Use: denies use Illicit Drug Use: denies illicit drug use Living Will? no Functional Ability ADLs Independent: dressing, eating, toileting, bathing. Ambulation: independent IADLs Independent: shopping, housework, finances, food prep, telephone, transportation , medication admin. Review of Systems Review of Systems Constitutional: Reports: chills, fever, malaise, weakness. EENTM: Denies: visual changes. Cardiovascular: Reports: chest pain. Denies: edema, orthopena, palpitations, peripheral edema. Respiratory: Denies: cough, short of breath. GI: Denies: abdominal pain, diarrhea, nausea, vomiting. Genitourinary: Denies: dysuria. Musculoskeletal: Denies: back pain, gout. Skin: Denies: rash. Neurological/Psychological: Denies: anxiety, confusion. Exam & Diagnostic Data Last 24 Hrs of Vital Signs/I&O Vital Signs Date Time Temp Pulse Resp B/P Pulse O2 O2 Flow FiO2 Ox Delivery Rate 07/08 2015 98.0 92 18 130/66 96 Room Air 07/07 1754 97.4 85 18 114/59 99 Nasal 2.0L Cannula 07/07 1603 93 20 108/59 99 Nasal 2.0L Cannula 07/07 1542 Nasal 2.0L Cannula 07/07 1525 97.0 86 16 125/72 97 Room Air Intake & Output 07/07 1600 07/07 0800 07/07 0000 Intake Total Output Total Balance Patient 188 lb Weight Physical Exam General Appearance Alert, Oriented X3, Cooperative, No Acute Distress Skin No Rashes HEENT Atraumatic, PERRLA, EOMI, Mucous Membr. moist/pink Neck Supple, No JVD Lymphatic Cervical nl Cardiovascular Regular Rate, Normal S1, Normal S2, No Murmurs Lungs Clear to Auscultation, Normal Air Movement Abdomen Normal Bowel Sounds, Soft, No Tenderness Neurological Normal Speech, Normal Tone, Sensation Intact, Cranial Nerves 3-12 NL Extremities No Edema, Normal Pulses Vascular Normal Pulses, Pulses Symmetrical Last 24 Hrs of Labs/Eriberto: Laboratory Tests 07/07/16 1530: Anion Gap 11, Estimated GFR 43 L, BUN/Creatinine Ratio 18.8, Glucose 297 H, Calcium 9.4, Total Bilirubin 1.3, AST 22, ALT 45, Alkaline Phosphatase 224 H, Troponin I 0.02, Total Protein 7.2, Albumin 3.1 L, Globulin 4.1, Albumin/ Globulin Ratio 0.8 L, CBC w Diff NO MAN DIFF REQ, RBC 4.60 L, MCV 91.0, MCH 30.3, RDW 15.1 H, MPV 9.4, Gran % 82.2 H, Lymphocytes % 9.1 L, Monocytes % 6.4, Eosinophils % 2.1, Basophils % 0.2, Absolute Granulocytes 13.4 H, Absolute Lymphocytes 1.5, Absolute Monocytes 1.0 H, Absolute Eosinophils 0.3, Absolute Basophils 0, PUBS MCHC 33.3 Diagnostic Data EKG Results Normal sinus rhythm, ST elevation in anterolateral lateral lead with T-wave inversion in V1 and V2, QTC 460 CXR Results Density at posterior left lung base probably due to left pleural effusion and left basilar infiltrate/atelectasis. Assessment/Plan Assessment: This is 65-year-old male with past medical history of CAD with anterior wall ME in CO2 2017 status post PCI/KIRK of culprit LAD stenosis and RCA stenosis, presumed COPD, hypertension, hyperlipidemia, CK stage III, type 2 diabetes not on treatment was sent in by his psychology physician Dr. Ghotra after his routine evaluation post PCI today at his office patient complain of new onset left-sided chest pain worse with inspiration. He found to have persistent anterolateral ST elevation but negative troponin. 1. Acute chest pain - Likely pericarditis - Rule out ACS considering significant history of recent CAD status post stenting, smoking, hypertension and diabetes - Serial troponin and EKG - As per cardiology recommendation Will start patient on higher dose aspirin and combination with colchicine for suspected pericarditis - Echocardiogram in a.m. - Watch for any hemodynamic instability - Continue telemetry monitoring 2. Acute kidney injury - Patient noted to have elevated creatinine of 1.5-1.6 for past couple months - We'll get previous lab result to evaluate for any ACUITY OF THE SYMPTOMS - Avoid nephrotoxic agent - We'll get renal ultrasound - We'll hold lisinopril for now, recheck kidney function in a.m. and consider to resume if okay with cardiology 3. Diabetes - Start NovoLog sliding scale - We'll check HbA1c - Accu-Cheks 4. HypERkalemia in setting of kidney injury - Monitor potassium level 5. Gout - Continue allopurinol 100 mg daily 6. DVT prophylaxis - Subcutaneous heparin 7. Full code As Ranked By This Provider Problem List: 1. Pericarditis Qualifiers Pericarditis type: unspecified type Chronicity: acute Qualified Code: I30.9 - Acute pericarditis, unspecified 2. CAD (coronary artery disease) 3. Diabetes 4. Kidney failure 5. Gout Core Measures/Miscellaneous Acute Coronary Syndrome ACS Diagnosis: No Cerebrovascular Accident CVA/TIA Diagnosis: No Congestive Heart Failure CHF Diagnosis: No Venous Thromboembolism VTE Risk Factors: Age > 40, Smoking No [facility] VTE prophylaxis d/t: No contraindications No VTE Pharm Prophylaxis d/t: No contraindications VTE Diagnosis: No VTE Type: NONE VTE Confirmed by (Test): NONE Severe Sepsis Severe Sepsis Present: No Septic Shock Septic Shock Present: No Miscellaneous Documentation Attending Case Discussed With: MARION GHOTRA MD Primary Care Physician: RICKEY LOPEZ APRN Patient sees these Specialists Dr. Ghotra Level of Patient Care: Telemetry
--- NOTE | 2016-07-07 20:52 | NUR ---
REPORT CALLED TO SWATHI ON TELE UNIT. SWATHI AWARE PT NEEDS UA AND 2130 TROP AND EKG
[2016-07-07 21:47] VITALS: BP 130/76
[2016-07-07 23:30] VITALS: BP 126/68
--- NOTE | 2016-07-08 06:30 | PN- Housestaff ---
Subjective Follow-up For: Presumed acute Pericarditis Complaints: chest pain worse at inspiration Tele-Events Since Last Visit: SR, 77-91. no events Subjective: Patient is comfortably lying in bed. Still complain of left-sided chest pain on deep inspiration. He denies any palpitation, dizziness, lightheadedness, shortness of breath, abdominal pain, nausea, vomiting, diarrhea or urinary symptoms. He remains afebrile. Review of Systems Constitutional: Reports: see HPI. Objective Last 24 Hrs of Vital Signs/I&O Vital Signs Date Time Temp Pulse Resp B/P Pulse O2 O2 Flow FiO2 Ox Delivery Rate 07/08 0000 95 Room Air 07/07 2330 98.6 88 20 126/68 97 Room Air 07/07 2200 98 Room Air 07/07 2147 98.9 85 20 130/76 98 Room Air 07/07 2016 98.0 92 18 130/66 96 Room Air 07/07 1754 97.4 85 18 114/59 99 Nasal 2.0L Cannula 07/07 1603 93 20 108/59 99 Nasal 2.0L Cannula 07/07 1542 Nasal 2.0L Cannula 07/07 1525 97.0 86 16 125/72 97 Room Air Intake & Output 07/08 0800 07/08 0000 07/07 1600 Intake Total 250 Output Total 400 Balance -150 Intake, Oral 250 Number 0 Bowel Movements Output, Urine 400 Patient 188 lb 188 lb Weight Physical Exam General Appearance: Alert, Oriented X3, Cooperative, No Acute Distress Skin: No Rashes HEENT: Atraumatic, PERRLA, EOMI, Mucous Membr. moist/pink Neck: Supple, No JVD Lymphatic: Cervical nl Cardiovascular: Regular Rate, Normal S1, Normal S2, No Murmurs Lungs: Clear to Auscultation, Normal Air Movement Abdomen: Normal Bowel Sounds, Soft, No Tenderness Neurological: Normal Speech, Normal Tone, Sensation Intact Extremities: No Edema Vascular: Normal Pulses, Pulses Symmetrical Current Medications: Current Medications Sig/Jabier Start time Last Medication Dose Route Stop Time Status Admin Acetaminophen 650 MG Q6P PRN 07/07 2014 AC PO Allopurinol 100 MG DAILY 07/08 1000 CAN PO Allopurinol 100 MG DAILY 07/08 1000 AC PO Aspirin 650 MG ONCE ONE 07/07 1600 DC 07/07 PO 07/07 1601 1557 Aspirin 0 .STK-MED ONE 07/07 1556 DC PO Aspirin Buffered 650 MG TID 07/07 2199 AC 07/07 PO 2229 Atorvastatin Calcium 40 MG QPM 07/07 2199 AC 07/07 PO 222 Clopidogrel Bisulfate 75 MG DAILY 07/08 1000 AC PO Colchicine 600 MCG BID 07/07 2199 AC 07/07 PO 222 Heparin Sodium 5,000 UNIT Q8 07/07 2199 AC 07/08 (Porcine) SC 0530 Insulin Aspart 0 TIDAC 07/08 0800 AC SC Lisinopril 10 MG DAILY 07/08 1000 CAN PO Nitroglycerin 0.4 MG ONCE ONE 07/07 1600 DC 07/07 SL 07/07 1601 1553 Nitroglycerin 0 .STK-MED ONE 07/07 1552 DC SL Omeprazole 40 MG DAILY AC 07/08 0700 AC 07/08 PO 0530 Omeprazole 40 MG ONCE ONE 07/07 223 DC 07/07 PO 07/07 2231 2229 Oxycodone/ 1 TAB Q6P PRN 07/07 2014 AC Acetaminophen PO Last 24 Hrs of Lab/Eribetro Results Last 24 Hrs of Labs/Mics: Laboratory Tests 07/08/16 0515: Urinalysis LIGHT H, Urine Color YEL, Urine Clarity CLEAR, Urine pH 6.0, Ur Specific [place] 1.020, Urine Protein 100 H, Urine Ketones NEG, Urine Nitrite NEG, Urine Bilirubin NEG, Urine Urobilinogen 4.0 H, Ur Leukocyte Esterase NEG, Ur Microscopic SEDIMENT EXAMINED, Urine RBC 10-15 H, Urine WBC 1-3 H, Ur Epithelial Cells FEW, Urine Bacteria FEW H, Urine Hemoglobin MOD H, Urine Glucose 100 H 07/08/16 0515: Hemoglobin A1c Pending, Troponin I Pending, C-React Prot High Sens Pending, Triglycerides 113, Cholesterol 111, LDL Cholesterol, Calc 72, HDL Cholesterol 17 L, Cholesterol/HDL Ratio 7 H, TSH Pending, ESR W[place]gren Pending, Ur Random Creatinine Pending, Ur Random Sodium Pending, Ur Random Potassium Pending, Fraction Sodium Excret Pending 07/07/164: Troponin I 0.02 07/07/16 1530: Anion Gap 11, Estimated GFR 43 L, BUN/Creatinine Ratio 18.8, Glucose 297 H, Calcium 9.4, Total Bilirubin 1.3, AST 22, ALT 45, Alkaline Phosphatase 224 H, Troponin I 0.02, Total Protein 7.2, Albumin 3.1 L, Globulin 4.1, Albumin/ Globulin Ratio 0.8 L, CBC w Diff NO MAN DIFF REQ, RBC 4.60 L, MCV 91.0, MCH 30.3, RDW 15.1 H, MPV 9.4, Gran % 82.2 H, Lymphocytes % 9.1 L, Monocytes % 6.4, Eosinophils % 2.1, Basophils % 0.2, Absolute Granulocytes 13.4 H, Absolute Lymphocytes 1.5, Absolute Monocytes 1.0 H, Absolute Eosinophils 0.3, Absolute Basophils 0, PUBS MCHC 33.3 Orders EKG Findings: Persistent septal wall ST elevation Assessment/Plan Assessment: This is 65-year-old male with past medical history of CAD with anterior wall NC in CO2 2017 status post PCI/KIRK of culprit LAD stenosis and RCA stenosis, presumed COPD, hypertension, hyperlipidemia, CK stage III, type 2 diabetes not on treatment was sent in by his laborer road Dr. Ghotra after his routine evaluation post PCI today at his office patient complain of new onset left-sided chest pain worse with inspiration. He found to have persistent anterolateral ST elevation but negative troponin. 1. Acute chest pain - Likely pericarditis, ? Yariel syndrome - Rule out ACS considering significant history of recent CAD status post stenting, smoking, hypertension and diabetes - Serial troponin and EKG, 2 sets of troponins remain negative - As per cardiology recommendatio started patient on higher dose aspirin 650 mg 3 times a day and combination with colchicine 0.6 mg twice a day for suspected pericarditis - Echocardiogram in a.m. - Watch for any hemodynamic instability - Continue telemetry monitoring - Pending ESR and CRP, TSH 2. Acute kidney injury - Patient noted to have elevated creatinine of 1.5-1.6 for past couple months - We'll get previous lab result to evaluate for any ACUITY OF KIDNEY DISEASE - Avoid nephrotoxic agent - renal ultrasound in a.m. - Held lisinopril for now, recheck kidney function in a.m. (pending) and consider to resume if okay with cardiology 3. Diabetes - Continue NovoLog sliding scale - HbA1c pending - Accu-Cheks noted 205 - Consider endocrinology consult 4. HypERkalemia in setting of kidney injury - Monitor potassium level, morning labs pending 5. Gout - Continue allopurinol 100 mg daily 6. DVT prophylaxis - Subcutaneous heparin 7. Full code Problem List: 1. Chest pain 2. Pericarditis 3. CAD (coronary artery disease) 4. Diabetes 5. Kidney failure 6. Gout Pain Ratin Pain Location: Left chest Pain Goal: Pain 4 or less Pain Plan: Aspirin, colchicine Tomorrow's Labs & Rationales: CBC and BEP DVT/Prophylaxis: pharmacological
[2016-07-08 07:45] VITALS: BP 118/70
[2016-07-08 12:15] LABS: ABSOLUTE BASOPHIL COUNT 0.1 /CUMM (0.0-0.2); ABSOLUTE EOSINOPHIL COUNT 0.5 /CUMM (0.0-0.7); ABSOLUTE GRANULOCYTE CT 10.4 /CUMM (1.4-6.5); ABSOLUTE LYMPH COUNT 1.6 /CUMM (1.2-3.4); BASOPHIL % 0.5 % (0.0-2.0); EOSINOPHIL % 3.9 % (0-5); GRANULOCYTE % 76.4 % (42.2-75.2); HEMATOCRIT 37.7 % (42-52); MEAN CORPUSCULAR HGB 29.8 PG (27.0-31.0); MEAN CORPUSCULAR HGB CONC 32.8 G/DL (33.0-37.0); MEAN CORPUSCULAR VOLUME 90.7 FL (80.0-94.0); MEAN PLATELET VOLUME 9.7 FL (7.4-10.4); PLATELET COUNT 333 /CUMM (130-400); RBC DISTRIBUTION WIDTH 15.1 % (11.5-14.5); RED BLOOD CELL CT 4.15 /CUMM (4.70-6.10); WHITE BLOOD CELL COUNT 13.6 /CUMM (4.8-10.8)
[2016-07-08 16:06] VITALS: BP 112/66
--- NOTE | 2016-07-08 16:40 | PN- Cardiology ---
Subjective Subjective: * Patient continues to report a mild sharp and positional chest discomfort * Normal cardiac enzymes Objective Vital Signs and I&Os Vital Signs Date Time Temp Pulse Resp B/P Pulse O2 O2 Flow FiO2 Ox Delivery Rate 07/08 1606 98.0 73 18 112/66 96 Room Air 07/08 0745 98.1 86 20 118/70 96 Room Air 07/08 0000 95 Room Air 07/07 2330 98.6 88 20 126/68 97 Room Air 07/07 2200 98 Room Air 07/07 2147 98.9 85 20 130/76 98 Room Air 07/07 2016 98.0 92 18 130/66 96 Room Air 07/07 1754 97.4 85 18 114/59 99 Nasal 2.0L Cannula Intake & Output 07/08 1600 07/08 0800 07/08 0000 07/07 1600 07/07 0800 07/07 0000 Intake Total 480 250 Output Total 400 Balance 480 -150 Intake, Oral 480 250 Number 0 Bowel Movements Output, Urine 400 Patient 187 lb 188 lb 188 lb Weight Physical Exam: General: WD/ WN male in NAD; alert and oriented x 3 Neck: no JVD Heart: RRR with rub Lungs: clear bilaterally Extremities: no edema Assessment/Plan Assessment/Plan * This patient has pericarditis with persistent ST changes and normal cardiac enzymes. Continue high dose aspirin. Plavix 75mg daily and Atorvastatin. We will also continue colchicine and if there is no improvement will consider steroid therapy. * Obtain an echocardiogram. Continue telemetry? Yes
[2016-07-09 00:05] VITALS: BP 130/78
[2016-07-09 07:50] VITALS: BP 120/68
[2016-07-09 08:04] LABS: ABSOLUTE BASOPHIL COUNT 0.1 /CUMM (0.0-0.2); ABSOLUTE EOSINOPHIL COUNT 0.6 /CUMM (0.0-0.7); ABSOLUTE GRANULOCYTE CT 10.4 /CUMM (1.4-6.5); ABSOLUTE LYMPH COUNT 2.2 /CUMM (1.2-3.4); ABSOLUTE MONOCYTE COUNT 0.9 /CUMM (0.10-0.60); BASOPHIL % 0.5 % (0.0-2.0); EOSINOPHIL % 3.9 % (0-5); GRANULOCYTE % 73.3 % (42.2-75.2); HEMATOCRIT 41.9 % (42-52); MEAN CORPUSCULAR HGB 29.9 PG (27.0-31.0); MEAN CORPUSCULAR HGB CONC 32.5 G/DL (33.0-37.0); MEAN PLATELET VOLUME 10.1 FL (7.4-10.4); PLATELET COUNT 359 /CUMM (130-400); RBC DISTRIBUTION WIDTH 15.3 % (11.5-14.5); RED BLOOD CELL CT 4.56 /CUMM (4.70-6.10); WHITE BLOOD CELL COUNT 14.2 /CUMM (4.8-10.8)
--- NOTE | 2016-07-09 08:34 | PN- Housestaff ---
Subjective Follow-up For: chest pain - pericarditis Tele-Events Since Last Visit: Normal Sinus rhythm in the 70s Subjective: Patient seen and examined at the bedside. Mariano is still complaining of some left-sided chest pain, worse with deep inspiration. He denies worsening of the chest pain lying down. He states it is approximately 3 out of 10 now. He denies any other complaints including palpitations, dyspnea, abdominal pain nausea or vomiting. Echocardiogram pending. Review of Systems Constitutional: Reports: see HPI. Objective Last 24 Hrs of Vital Signs/I&O Vital Signs Date Time Temp Pulse Resp B/P Pulse O2 O2 Flow FiO2 Ox Delivery Rate 07/09 0750 98.9 80 20 120/68 97 Room Air 07/09 0005 99.1 89 20 130/78 96 07/08 1606 98.0 73 18 112/66 96 Room Air Intake & Output 07/09 1600 07/09 0800 07/09 0000 Intake Total 480 480 Output Total 400 550 Balance 80 -70 Intake, Oral 480 480 Output, Urine 400 550 Physical Exam General Appearance: Alert, Oriented X3, Cooperative, No Acute Distress HEENT: Atraumatic, EOMI Cardiovascular: Regular Rate, Normal S1, Normal S2, no friction rub noted Lungs: Clear to Auscultation, Normal Air Movement Abdomen: Soft, No Tenderness Extremities: No Cyanosis, No Tenderness/Swelling Current Medications: Current Medications Sig/Jabier Start time Last Medication Dose Route Stop Time Status Admin Acetaminophen 650 MG Q6P PRN 07/07 2014 AC 07/08 PO 0849 Allopurinol 100 MG DAILY 07/08 1000 AC 07/09 PO 0935 Aspirin Buffered 650 MG TID 07/07 2199 AC 07/09 PO 0935 Atorvastatin Calcium 40 MG QPM 07/07 2199 AC 07/08 PO 2128 Clopidogrel Bisulfate 75 MG DAILY 07/08 1000 AC 07/09 PO 0935 Colchicine 600 MCG BID 07/07 2199 AC 07/09 PO 0935 Heparin Sodium 5,000 UNIT Q8 07/07 2199 AC 07/09 (Porcine) SC 0612 Insulin Aspart 0 TIDAC 07/08 0800 AC 07/08 SC 1710 Omeprazole 40 MG DAILY AC 07/08 0700 AC 07/09 PO 0613 Oxycodone/ 1 TAB Q6P PRN 07/07 2014 AC Acetaminophen PO Sodium Chloride 2 SPRAY Q4P PRN 07/09 0945 AC 07/09 MARCIN 1016 Last 24 Hrs of Lab/Eriberto Results Last 24 Hrs of Labs/Mics: Laboratory Tests 07/09/16 0620: Anion Gap 11, Estimated GFR 43 L, BUN/Creatinine Ratio 20.6, CBC w Diff NO MAN DIFF REQ, RBC 4.56 L, MCV 92.0, MCH 29.9, RDW 15.3 H, MPV 10.1, Gran % 73.3, Lymphocytes % 15.8 L, Monocytes % 6.5, Eosinophils % 3.9, Basophils % 0.5, Absolute Granulocytes 10.4 H, Absolute Lymphocytes 2.2, Absolute Monocytes 0.9 H, Absolute Eosinophils 0.6, Absolute Basophils 0.1, PUBS MCHC 32.5 L 07/09/16 0040: Ur Random Creatinine 69.3, Ur Random Sodium 120 H, Ur Random Potassium 40.5, Fraction Sodium Excret 1.8 H 07/08/16 1115: Troponin I 0.02, CBC w Diff NO MAN DIFF REQ, RBC 4.15 L, MCV 90.7, MCH 29.8, RDW 15.1 H, MPV 9.7, Gran % 76.4 H, Lymphocytes % 11.7 L, Monocytes % 7.5, Eosinophils % 3.9, Basophils % 0.5, Absolute Granulocytes 10.4 H, Absolute Lymphocytes 1.6, Absolute Monocytes 1.0 H, Absolute Eosinophils 0.5, Absolute Basophils 0.1, PUBS MCHC 32.8 L Assessment/Plan Assessment: Mr. Barboza is a 65-year-old male with past medical history of CAD with anterior wall VA in CO2 2017 status post PCI/KIRK of culprit LAD stenosis and RCA stenosis , presumed COPD, hypertension, hyperlipidemia, CK stage III, type 2 diabetes not on treatment was sent in by his devops developer Dr. Ghotra after his routine evaluation post PCI today at his office patient complain of new onset left-sided chest pain worse with inspiration. He found to have persistent anterolateral ST elevation but negative troponin. Problem List/Assessment and Plan Acute chest pain * ACS ruled out, likely pericarditis in light of persistent ST changes with normal cardiac enzymes * Echo pending. * We will continue ASA 650 TID, Colchicine 600 mcg BID for pericarditis * Continue plavix as well. * Given the patients slight improvement, I'm not certain we need to start steroids on the patient at the moment, but we will defer to the expertise of cardiology. * White count slightly up todate to 14.2 from 13.6. No fevers in brittaney last 24hr. ESR elevated to 113 with Quantitative CRP also up to 5.2 * TSH WNL Acute kidney injury * Remains elevated - Patient noted to have elevated creatinine in the mid 1s. Not sure of baseline before may. We will try an obtain old records from his PCP office. Please call the PCP on sunday morning. * Renal ultrasound pending * Continue to hold lisinopril for now, as kidney function is still ?acutely impaired. * Recheck kidney function in a.m. and avoid nephrotoxins Diabetes * continue NovoLog sliding scale * Hb A1C = 8.5 * Accu-Cheks noted in the 150s * consider endocrinology consult for diagnosis of new DM Gout * Continue allopurinol 100 mg daily HypERkalemia in setting of kidney injury * Resolved DVT prophylaxis Subcutaneous heparin FULL CODE Problem List: 1. Pericarditis 2. Kidney failure 3. Diabetes Pain Ratin Pain Location: chest Pain Goal: Pain 4 or less Pain Plan: continue Tomorrow's Labs & Rationales: BEP and CBC
--- NOTE | 2016-07-09 14:56 | ULTRASOUND REPORT ---
EXAMINATION: RENAL ULTRASOUND CLINICAL INFORMATION: Follow-up renal cyst. Acute renal failure. COMPARISON: None. TECHNIQUE: Real-time imaging of the kidneys and bladder. FINDINGS: RIGHT KIDNEY: There is neither hydronephrosis nor nephrolithiasis. There is a 2.7 cm cyst within the upper pole. There is an approximately 2.0 cm cyst within the interpole region. There is a 2.67 m cyst within the lower pole. The right kidney measures 13.2 cm. LEFT KIDNEY: There is neither hydronephrosis nor nephrolithiasis. There is a 2.5 cm cyst within the interpole region. There is a 2.3 cm cyst within the lower pole. The left kidney measures 12.6 cm. BLADDER: The urinary bladder is partially filled and unremarkable. There is no wall thickening. There is no pelvic free fluid. IMPRESSION: Neither hydronephrosis nor nephrolithiasis. Bilateral renal cysts.
--- NOTE | 2016-07-09 16:13 | PN- Cardiology ---
Subjective Subjective: * Chest discomfort is improved but not resolved. * WBC count remains mildly elevated. * Sinus rhythm with ST changes that are mildly improved Objective Vital Signs and I&Os Vital Signs Date Time Temp Pulse Resp B/P Pulse O2 O2 Flow FiO2 Ox Delivery Rate 07/09 0750 98.9 80 20 120/68 97 Room Air 07/09 0005 99.1 89 20 130/78 96 Intake & Output 07/09 1600 07/09 0800 07/09 0000 07/08 1600 07/08 0800 07/08 0000 Intake Total 480 480 480 480 250 Output Total 400 550 400 Balance 480 80 -70 480 -150 Intake, Oral 480 480 480 480 250 Number 0 Bowel Movements Output, Urine 400 550 400 Patient 187 lb 188 lb Weight Physical Exam: General: WD/ WN male in NAD; alert and oriented x 3 Neck: no JVD Heart: RRR with rub Lungs: clear bilaterally Extremities: no edema Assessment/Plan Assessment/Plan * This patient has pericarditis with persistent ST changes and normal cardiac enzymes. Continue high dose aspirin. Plavix 75mg daily and Atorvastatin. We will also continue colchicine and if there is no improvement will consider steroid therapy. No changes for now. * Obtain an echocardiogram. Continue telemetry? Yes
[2016-07-09 16:41] VITALS: BP 110/68
--- NOTE | 2016-07-09 20:03 | ECHOCARDIOGRAM REPORT ---
MELISSA BAKER Age: 65 : 1950 Gender: M Exam Date: 07/09/2016 11:05 Exam Location: [facility] Ht (in): 74 Wt (lb): 187 BSA: 2.11 BP: 130 / 78 Ordering Physician: MICHAEL GALAN MD Referring Physician: Ziyad Ghotra MD Technologist: Nella Rush [facility] Room Number: [id number] Indications: PERICARDIAL CONDITIONS Rhythm: Sinus Technical Quality: fair FINDINGS Left Ventricle Normal size left ventricle. Left ventricular wall thickness mildly increased. Normal left ventricular ejection fraction estimated at 55-60%. Right Ventricle Normal right ventricular size and function. Right Atrium Normal right atrial size. Left Atrium Normal left atrial size. Mitral Valve Mild mitral annular calcification. Trace to mild mitral regurgitation. Aortic Valve Diffuse thickening (sclerosis) of the aortic valve cusps without reduced excursion. Tricuspid Valve Tricuspid valve is normal in structure and function. Mild tricuspid regurgitation. Right ventricular systolic pressure estimated to be within the normal range at 26 mmHg. Pulmonic Valve Pulmonic valve not well visualized, grossly normal. Pericardium Small pericardial effusion. Great Vessels Normal size aortic root. CONCLUSIONS Normal left ventriculsr systolic function with mild concentric hypertrophy. Small Pericardial effusion. No significant valvular abnormalities. Greg Tse M.D. (Electronically Signed) Final Date: 09 July 2016 20:03 MEASUREMENTS (Male / Female) Normal Values 2D ECHO LV Diastolic Diameter PLAX 3.8 cm 4.2 - 5.9 / 3.9 - 5.3 cm LV Systolic Diameter PLAX 2.4 cm 2.1 - 4.0 cm LV Fractional Shortening PLAX 36.8 % 25 - 46 % LV Ejection Fraction 2D Teich 67.5 % IVS Diastolic Thickness 1.3 cm LVPW Diastolic Thickness 1.3 cm LV Relative Wall Thickness 0.7 RV Internal Dim ED PLAX 2.7 cm 1.9 - 3.8 cm LVOT Diameter 2.2 cm Aortic Root Diameter 3.2 cm LA Systolic Diameter LX 2.8 cm 3.0 - 4.0 / 2.7 - 3.8 cm LA Volume 25.0 cm 18 - 58 / 22 - 52 cm Ascending Aorta Diameter 3.2 cm DOPPLER AV Peak Velocity 97.6 cm/s AV Peak Gradient 3.8 mmHg AV Mean Velocity 74.8 cm/s AV Mean Gradient 2.0 mmHg AV Velocity Time Integral 18.2 cm LVOT Peak Velocity 70.7 cm/s LVOT Peak Gradient 2.0 mmHg LVOT Mean Velocity 43.5 cm/s LVOT Mean Gradient 1.0 mmHg LVOT Velocity Time Integral 11.7 cm LVOT Stroke Volume 44.5 cm AV Area Cont Eq vti 2.4 cm AV Area Cont Eq pk 2.8 cm MV Peak Velocity 70.2 cm/s MV Peak Gradient 2.0 mmHg MV Mean Velocity 45.5 cm/s MV Mean Gradient 1.0 mmHg Mitral E Point Velocity 60.7 cm/s Mitral A Point Velocity 42.9 cm/s Mitral E to A Ratio 1.4 MV PHT Velocity 75.3 cm/s MV Deceleration [place] 288.0 cm/s MV Pressure Half Time 78.4 ms MV Area PHT 2.8 cm MV Deceleration Time 215.0 ms TR Peak Velocity 229.0 cm/s TR Peak Gradient 21.0 mmHg Right Atrial Pressure 5.0 mmHg Pulmonary Artery Systolic Pressu 26.0 mmHg Right Ventricular Systolic Press 26.0 mmHg PV Peak Velocity 134.0 cm/s PV Peak Gradient 7.2 mmHg PV Mean Velocity 81.2 cm/s PV Mean Gradient 3.0 mmHg PV Velocity Time Integral 22.5 cm LV E' Lateral Velocity 7.8 cm/s Mitral E to LV E' Lateral Ratio 7.8 LV E' Septal Velocity 6.2 cm/s Mitral E to LV E' Septal Ratio 9.7
[2016-07-09 23:00] VITALS: BP 116/70
[2016-07-10 07:00] VITALS: BP 112/60; BP 140/50
--- NOTE | 2016-07-10 07:13 | PN- Housestaff ---
Subjective Follow-up For: pericarditis Tele-Events Since Last Visit: NSR, HR 75-81 Subjective: Patient seen and examined at the bedside. He is resting comfortably in bed and eating breakfast. Endorese mild left-sided chest pain with deep inspiration, currently at 1-2 out of 10 this morning, improved from yesterday. Denies any f/c , dyspjnea, palpitations, dyspnea, abdominal pain nausea or vomiting. No events reported overnight. Review of Systems Constitutional: Reports: see HPI. Objective Last 24 Hrs of Vital Signs/I&O Vital Signs Date Time Temp Pulse Resp B/P Pulse O2 O2 Flow FiO2 Ox Delivery Rate 07/10 0700 97.1 80 20 112/60 97 Room Air 07/09 2300 96.0 79 20 116/70 99 Room Air 07/09 1641 98.3 82 20 110/68 96 Room Air Intake & Output 07/10 1600 07/10 0800 07/10 0000 Intake Total 480 480 Output Total Balance 480 480 Intake, Oral 480 480 Physical Exam General Appearance: Alert, Oriented X3, Cooperative, No Acute Distress Other Physical Findings: HEENT: Atraumatic, EOMI Cardiovascular: Regular Rate, Normal S1, Normal S2, no friction rub noted Lungs: Clear to Auscultation, Normal Air Movement Abdomen: Soft, No Tenderness Extremities: No Cyanosis, No Tenderness/Swelling Current Medications: Current Medications Sig/Jabier Start time Last Medication Dose Route Stop Time Status Admin Acetaminophen 650 MG Q6P PRN 07/07 2014 AC 07/08 PO 0849 Allopurinol 100 MG DAILY 07/08 1000 AC 07/10 PO 1121 Aspirin Buffered 650 MG TID 07/07 2199 AC 07/10 PO 1121 Atorvastatin Calcium 40 MG QPM 07/07 2199 AC 07/09 PO 2051 Clopidogrel Bisulfate 75 MG DAILY 07/08 1000 AC 07/10 PO 1121 Colchicine 600 MCG BID 07/07 2199 AC 07/10 PO 1121 Heparin Sodium 5,000 UNIT Q8 07/07 2199 AC 07/10 (Porcine) SC 1234 Insulin Aspart 0 TIDAC 07/08 0800 AC 07/10 SC 1234 Omeprazole 40 MG DAILY AC 07/08 0700 AC 07/10 PO 0626 Oxycodone/ 1 TAB Q6P PRN 07/07 2014 AC Acetaminophen PO Sodium Chloride 2 SPRAY Q4P PRN 07/09 0945 AC 07/09 MARCIN 1016 Last 24 Hrs of Lab/Eriberto Results Last 24 Hrs of Labs/Mics: Laboratory Tests 07/10/16 0730: Anion Gap 10, Estimated GFR 43 L, BUN/Creatinine Ratio 20.6, CBC w Diff NO MAN DIFF REQ, RBC 4.26 L, MCV 91.2, MCH 30.0, RDW 15.0 H, MPV 10.1, Gran % 74.1, Lymphocytes % 14.4 L, Monocytes % 6.7, Eosinophils % 4.3, Basophils % 0.5, Absolute Granulocytes 10.9 H, Absolute Lymphocytes 2.1, Absolute Monocytes 1.0 H, Absolute Eosinophils 0.6, Absolute Basophils 0.1, PUBS MCHC 32.9 L Assessment/Plan Assessment: Mr. Barboza is a 65-year-old male with past medical history of CAD with anterior wall NC in CO2 2017 status post PCI/KIRK of culprit LAD stenosis and RCA stenosis , presumed COPD, hypertension, hyperlipidemia, CK stage III, type 2 diabetes not on treatment was sent in by his orthopaedic physician assistant Dr. Ghotra after his routine evaluation post PCI today at his office patient complain of new onset left-sided chest pain worse with inspiration. He found to have persistent anterolateral ST elevation but negative troponin. # Pericarditis Left-sided pleurtic chest pain improving on aspirin and colchicine. Given the patients slight improvement, no need to start steroids at the moment, but we will defer to the expertise of cardiology. - Echo (07/09): Normal left ventriculsr systolic function with mild concentric hypertrophy. Small Pericardial effusion. No significant valvular abnormalities. * Check CBC daily, trend WBC - White count slightly up todate to 14.7 from 14.2. * Vitals per protocol - no fevers in brittaney last 24hr. * Continue ASA 650 TID and Colchicine 600 mcg BID * Continue plavix # Acute kidney injury - Renal U/S (07/09): Neither hydronephrosis nor nephrolithiasis. Bilateral renal cysts. * Check BEP daily, trend Cr - remains elevated at 1.6. * Continue to hold lisinopril for now, as kidney function is still acutely impaired. * Avoid nephrotoxins # New diagnosis of diabetes type II Hb A1C upon admission 8.5, FSG's ranging up to 240s * NovoLog sliding scale with accuchecks * Follow endo recs, consult placed on 07/10 # Gout * Continue allopurinol 100 mg daily # Diabetic diet # Mild pain pathway # DVT prophylaxis with SQ heparin # FULL CODE Problem List: 1. Elevated troponin 2. Acute electrocardiogram changes 3. Chest pain 4. EKG, abnormal 5. Pericarditis 6. CAD (coronary artery disease) 7. Diabetes 8. Kidney failure 9. Gout Pain Ratin Pain Location: Chest Pain Goal: Remain pain free Pain Plan: Mild pathway Tomorrow's Labs & Rationales: CBC BEP
[2016-07-10 08:08] LABS: ABSOLUTE BASOPHIL COUNT 0.1 /CUMM (0.0-0.2); ABSOLUTE EOSINOPHIL COUNT 0.6 /CUMM (0.0-0.7); ABSOLUTE GRANULOCYTE CT 10.9 /CUMM (1.4-6.5); ABSOLUTE LYMPH COUNT 2.1 /CUMM (1.2-3.4); BASOPHIL % 0.5 % (0.0-2.0); EOSINOPHIL % 4.3 % (0-5); GRANULOCYTE % 74.1 % (42.2-75.2); HEMATOCRIT 38.9 % (42-52); MEAN CORPUSCULAR HGB CONC 32.9 G/DL (33.0-37.0); MEAN CORPUSCULAR VOLUME 91.2 FL (80.0-94.0); MEAN PLATELET VOLUME 10.1 FL (7.4-10.4); PLATELET COUNT 348 /CUMM (130-400); RED BLOOD CELL CT 4.26 /CUMM (4.70-6.10); WHITE BLOOD CELL COUNT 14.7 /CUMM (4.8-10.8)
[2016-07-10 16:07] VITALS: BP 112/64
--- NOTE | 2016-07-10 18:50 | PN- Cardiology ---
Subjective Subjective: Still having some chest discomfort, but feels it has improved overall. Objective Vital Signs and I&Os Vital Signs Date Time Temp Pulse Resp B/P Pulse O2 O2 Flow FiO2 Ox Delivery Rate 07/10 1607 97.9 92 18 112/64 95 Room Air 07/10 0700 97.1 80 20 112/60 97 Room Air 07/09 2300 96.0 79 20 116/70 99 Room Air Intake & Output 07/10 1600 07/10 0800 07/10 0000 07/09 1600 07/09 0800 07/09 0000 Intake Total 480 480 480 480 480 Output Total 400 550 Balance 480 480 480 80 -70 Intake, Oral 480 480 480 480 480 Output, Urine 400 550 Physical Exam: Well-developed, well-nourished male in mild distress. Vital signs: See above. HEENT: Normocephalic, atraumatic, EOMI, slightly dry mucous membranes. Neck: No JVD, no bruits. Lungs: Decreased breath sounds bilaterally. Heart: S1, S2 with no murmur, gallop, or rub appreciated. PMI fifth ICS at [facility]. Abdomen: Soft, nontender, positive bowel sounds. Extremities: No edema. Assessment/Plan Assessment/Plan Pericarditis that is gradually improving on a combination regimen of high-dose aspirin and colchicine with GI protection from PPI. The plan will be to continue with the same. Follow-up ECG in a.m. Continue DVT prophylaxis. Continue telemetry? Yes
--- NOTE | 2016-07-10 20:52 | Cons- Endocrinology ---
General Information and HPI Consulting Request Date of Consult: 07/10/16 Requested By: medical team Reason for Consult: evaluation and management of DM. Source of Information: patient, old records Exam Limitations: poor historian History of Present Illness: Patient is a 65-year-old male with a history of tobacco use, hypertension, dyslipidemia, gout, diabetes mellitus type 2, and coronary artery disease with a recent acute coronary syndrome (anterior STEMI) s/p PCI on 2016 and renal insufficiency. He presented with chest pain, EKG changes with negative cardiac enzymes. He was admitted for pericarditis. His HbA1c was 8.5%. However, he wasn't on DM medications prior to admission. He was put on Novolog coverage before meals and his FSGs were between 140 and 240. Allergies/Medications Allergies: Coded Allergies: No Known Allergies (06/16/16) Home Med List: Allopurinol 100 MG TABLET 1 TAB PO PRN GOUT (Reported) Aspirin (Ecotrin*) 325 MG TABLET.DR 1 TAB PO DAILY HEART/BLOOD (Reported) Atorvastatin Calcium 40 MG TABLET 1 TAB PO QPM CHOLESTEROL (Reported) Clopidogrel Bisulfate (Clopidogrel) 75 MG TABLET 1 TAB PO DAILY BLOOD THINNER (Reported) Lisinopril 10 MG TABLET 1 TAB PO DAILY BP (Reported) Review of Systems Review of Systems Constitutional: Reports: see HPI. EENTM: Denies: blurred vision. Cardiovascular: Reports: chest pain. Respiratory: Denies: short of breath. GI: Denies: abdominal pain. Genitourinary: Denies: dysuria. Hematologic/Endocrine: Denies: polyuria, polydipsia. Past History Travel History Traveled to [place] past 21 day No Medical History Blood Transfusion Hx: No Neurological: NONE EENT: hearing loss Cardiovascular: CAD, hypertension, hyperlipidemia, STEMI, (DOES TAKE THE MEDS) STENT PLACEMENT 06/16 PCI/KIRK to LAD and RCA; PCI/POBA ostial Dx 2. 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 Home Who Do You Live With? self Services at Home: None Primary Language: Italian Smoking Status: Heavy Tobacco Smoker ETOH Use: denies use Illicit Drug Use: denies illicit drug use Living Will? no Functional Ability ADLs Independent: dressing, eating, toileting, bathing. Ambulation: independent IADLs Independent: shopping, housework, finances, food prep, telephone, transportation , medication admin. ECHO Results (as available) Date of last Echo 06/16/16 EF% 50 Exam & Diagnostic Data Last 24 Hrs of Vital Signs/I&O Vital Signs Date Time Temp Pulse Resp B/P Pulse O2 O2 Flow FiO2 Ox Delivery Rate 07/10 1607 97.9 92 18 112/64 95 Room Air 07/10 0700 97.1 80 20 112/60 97 Room Air 07/09 2300 96.0 79 20 116/70 99 Room Air Intake & Output 07/10 1600 07/10 0800 07/10 0000 Intake Total 480 480 Output Total Balance 480 480 Intake, Oral 480 480 Physical Exam General Appearance: no apparent distress Neck: normal inspection Respiratory: decreased breath sounds (at bases) Cardiovascular: regular rate/rhythm Gastrointestinal: soft, non-tender Extremities: no edema Labs/Eriberto Results: Laboratory Tests 07/10 07/09 0730 0620 Chemistry Sodium (137 - 145 mmol/L) 135 L 136 L Potassium (3.5 - 5.1 mmol/L) 5.2 H 5.0 Chloride (98 - 107 mmol/L) 103 103 Carbon Dioxide (22 - 30 mmol/L) 22 22 Anion Gap (5 - 16) 10 11 BUN (9 - 20 mg/dL) 33 H 33 H Creatinine (0.7 - 1.2 mg/dL) 1.6 H 1.6 H Estimated GFR (>60 ml/min) 43 L 43 L BUN/Creatinine Ratio (7 - 25 %) 20.6 20.6 Hematology CBC w Diff NO MAN DIFF REQ NO MAN DIFF REQ WBC (4.8 - 10.8 /CUMM) 14.7 H 14.2 H RBC (4.70 - 6.10 /CUMM) 4.26 L 4.56 L Hgb (14.0 - 18.0 G/DL) 12.8 L 13.6 L Hct (42 - 52 %) 38.9 L 41.9 L MCV (80.0 - 94.0 FL) 91.2 92.0 MCH (27.0 - 31.0 PG) 30.0 29.9 RDW (11.5 - 14.5 %) 15.0 H 15.3 H Plt Count (130 - 400 /CUMM) 348 359 MPV (7.4 - 10.4 FL) 10.1 10.1 Gran % (42.2 - 75.2 %) 74.1 73.3 Lymphocytes % (20.5 - 51.1 %) 14.4 L 15.8 L Monocytes % (1.7 - 9.3 %) 6.7 6.5 Eosinophils % (0 - 5 %) 4.3 3.9 Basophils % (0.0 - 2.0 %) 0.5 0.5 Absolute Granulocytes (1.4 - 6.5 /CUMM) 10.9 H 10.4 H Absolute Lymphocytes (1.2 - 3.4 /CUMM) 2.1 2.2 Absolute Monocytes (0.10 - 0.60 /CUMM) 1.0 H 0.9 H Absolute Eosinophils (0.0 - 0.7 /CUMM) 0.6 0.6 Absolute Basophils (0.0 - 0.2 /CUMM) 0.1 0.1 PUBS MCHC (33.0 - 37.0 G/DL) 32.9 L 32.5 L 07/09 0040 Urines Ur Random Creatinine (mg/dL) 69.3 Ur Random Sodium (30 - 90 mmol/L) 120 H Ur Random Potassium (mmol/L) 40.5 Fraction Sodium Excret (<1% %) 1.8 H Assessment/Plan Assessment/Plan Patient is a 65-year-old male with a history of tobacco use, hypertension, dyslipidemia, gout, diabetes mellitus type 2 with HbA1c of 8.5%, and coronary artery disease with a recent acute coronary syndrome (anterior STEMI) s/p PCI on 06/16/2016 and renal insufficiency. He was admitted for pericarditis. DM management: 1. adjust Novolog coverage before meals and add-on Novolog coverage at bedtime-- - detail see the inpatient DM orders; 2. monitor FSGs. will follow. Inpatient Diabetes Orders Before Each Meal: Bolus Insulin: Novolog < 80 mg/dl: no coverage 80-100 mg/dl: 2 units 101-120 mg/dl: 2 units 121-150 mg/dl: 2 units 151-200 mg/dl: 3 units 201-250 mg/dl: 4 units 251-300 mg/dl: 5 units 301-350 mg/dl: 6 units 351-400 mg/dl: 7 units > 400 mg/dl: 8 units Bedtime: Bolus Insulin: Novolog < 80 mg/dl: no coverage 80-100 mg/dl: no coverage 101-120 mg/dl: no coverage 121-150 mg/dl: no coverage 151-200 mg/dl: no coverage 201-250 mg/dl: no coverage 251-300 mg/dl: 2 units 301-350 mg/dl: 3 units 351-400 mg/dl: 4 units > 400 mg/dl: 5 units Consult Acknowledgment - Thank you for your consult request.
[2016-07-11 00:13] VITALS: BP 122/70
--- NOTE | 2016-07-11 06:15 | PN- Housestaff ---
Subjective Follow-up For: pericarditis Tele-Events Since Last Visit: NSR, HR in 70s Subjective: Patient seen and examined at the bedside. No events reported overnight. Reports the chest pain has "moved" to the upper chest and throat area with radiation to the back. Induced by inspiration, currently at 1-2 out of 10. Denies any f/c, dyspjnea, palpitations, dyspnea, abdominal pain nausea or vomiting. Review of Systems Constitutional: Reports: see HPI. Objective Last 24 Hrs of Vital Signs/I&O Vital Signs Date Time Temp Pulse Resp B/P Pulse O2 O2 Flow FiO2 Ox Delivery Rate 07/11 0013 98.3 87 18 122/70 96 Room Air 07/10 1607 97.9 92 18 112/64 95 Room Air Intake & Output 07/11 0800 07/11 0000 07/10 1600 Intake Total 400 180 Output Total Balance 400 180 Intake, Oral 400 180 Physical Exam General Appearance: Alert, Oriented X3, Cooperative, No Acute Distress Other Physical Findings: HEENT: Atraumatic, EOMI Cardiovascular: Regular Rate, Normal S1, Normal S2, no friction rub noted Lungs: Clear to Auscultation, Normal Air Movement Abdomen: Soft, No Tenderness Extremities: No Cyanosis, No Tenderness/Swelling Current Medications: Current Medications Sig/Jabier Start time Last Medication Dose Route Stop Time Status Admin Acetaminophen 650 MG Q6P PRN 07/07 2014 AC 07/08 PO 0849 Allopurinol 100 MG DAILY 07/08 1000 AC 07/10 PO 1121 Aspirin Buffered 650 MG TID 07/07 2199 AC 07/10 PO 2110 Atorvastatin Calcium 40 MG QPM 07/07 2199 AC 07/10 PO 2110 Clopidogrel Bisulfate 75 MG DAILY 07/08 1000 AC 07/10 PO 1121 Colchicine 600 MCG BID 07/07 2199 AC 07/10 PO 2110 Heparin Sodium 5,000 UNIT Q8 07/07 2199 AC 07/11 (Porcine) SC 0630 Insulin Aspart 0 TIDAC/HS 07/10 2100 AC SC Insulin Aspart 0 TIDAC 07/08 0800 DC 07/10 SC 1707 Omeprazole 40 MG DAILY AC 07/08 0700 AC 07/11 PO 0631 Oxycodone/ 1 TAB Q6P PRN 07/07 2014 AC Acetaminophen PO Sodium Chloride 2 SPRAY Q4P PRN 07/09 0945 AC 03/19 MARCIN 1016 Last 24 Hrs of Lab/Eriberto Results Last 24 Hrs of Labs/Mics: Laboratory Tests 07/11/16 0630: Sodium Pending, Potassium Pending, Chloride Pending, Carbon Dioxide Pending, Anion Gap Pending, BUN Pending, Creatinine Pending, BUN/Creatinine Ratio Pending , Magnesium Pending, CBC w Diff Pending, WBC Pending, RBC Pending, Hgb Pending, Hct Pending, MCV Pending, MCH Pending, RDW Pending, Plt Count Pending, MPV Pending, PUBS MCHC Pending 07/10/16 0730: Anion Gap 10, Estimated GFR 43 L, BUN/Creatinine Ratio 20.6, CBC w Diff NO MAN DIFF REQ, RBC 4.26 L, MCV 91.2, MCH 30.0, RDW 15.0 H, MPV 10.1, Gran % 74.1, Lymphocytes % 14.4 L, Monocytes % 6.7, Eosinophils % 4.3, Basophils % 0.5, Absolute Granulocytes 10.9 H, Absolute Lymphocytes 2.1, Absolute Monocytes 1.0 H, Absolute Eosinophils 0.6, Absolute Basophils 0.1, PUBS MCHC 32.9 L Assessment/Plan Assessment: Mr. Barboza is a 65-year-old male with past medical history of CAD with anterior wall GA in CO2 2017 status post PCI/KIRK of culprit LAD stenosis and RCA stenosis , presumed COPD, hypertension, hyperlipidemia, CK stage III, type 2 diabetes not on treatment was sent in by his animal caregiver Dr. Ghotra after his routine evaluation post PCI today at his office patient complain of new onset left-sided chest pain worse with inspiration. He found to have persistent anterolateral ST elevation but negative troponin. # Pericarditis Left-sided pleurtic chest pain improving on aspirin and colchicine. Given the patients slight improvement, no need to start steroids at the moment, but we will defer to the expertise of cardiology. - Echo (07/09): Normal left ventriculsr systolic function with mild concentric hypertrophy. Small Pericardial effusion. No significant valvular abnormalities. * Check CBC daily, trend WBC - White count slightly up todate to 14.7 from 14.2. * Vitals per protocol - no fevers in brittaney last 24hr. * Continue ASA 650 TID and Colchicine 600 mcg BID * Continue plavix * Follow CXR in suspicion for possible aortic dissection although unlikely in the setting of normal BP equal in both arms (apprx. 105-110/65-70 bilaterally) # Acute kidney injury - Renal U/S (07/09): Neither hydronephrosis nor nephrolithiasis. Bilateral renal cysts. * Check BEP daily, trend Cr - remains elevated at 1.6. * Continue to hold lisinopril for now, as kidney function is still acutely impaired. * Avoid nephrotoxins # New diagnosis of diabetes type II Hb A1C upon admission 8.5, FSG's ranging up to 240s * NovoLog sliding scale with accuchecks * Follow endo recs, consult placed on 07/10 # Gout * Continue allopurinol 100 mg daily # Diabetic diet # Mild pain pathway # DVT prophylaxis with SQ heparin # FULL CODE Problem List: 1. Elevated troponin 2. Acute electrocardiogram changes 3. Chest pain 4. EKG, abnormal 5. Pericarditis 6. CAD (coronary artery disease) 7. Diabetes 8. Kidney failure 9. Gout Pain Ratin Pain Location: Chest Pain Goal: Remain pain free Pain Plan: Mild pathway Tomorrow's Labs & Rationales: CBC BEP
[2016-07-11 07:49] LABS: ABSOLUTE BASOPHIL COUNT 0.1 /CUMM (0.0-0.2); ABSOLUTE EOSINOPHIL COUNT 0.6 /CUMM (0.0-0.7); ABSOLUTE GRANULOCYTE CT 8.1 /CUMM (1.4-6.5); ABSOLUTE LYMPH COUNT 2.1 /CUMM (1.2-3.4); ABSOLUTE MONOCYTE COUNT 0.7 /CUMM (0.10-0.60); BASOPHIL % 0.6 % (0.0-2.0); EOSINOPHIL % 5.3 % (0-5); GRANULOCYTE % 69.8 % (42.2-75.2); HEMATOCRIT 41.3 % (42-52); MEAN CORPUSCULAR HGB 29.9 PG (27.0-31.0); MEAN CORPUSCULAR HGB CONC 32.9 G/DL (33.0-37.0); MEAN CORPUSCULAR VOLUME 90.8 FL (80.0-94.0); PLATELET COUNT 332 /CUMM (130-400); RBC DISTRIBUTION WIDTH 14.7 % (11.5-14.5); RED BLOOD CELL CT 4.55 /CUMM (4.70-6.10); WHITE BLOOD CELL COUNT 11.6 /CUMM (4.8-10.8)
[2016-07-11 08:25] VITALS: BP 107/66
--- NOTE | 2016-07-11 09:06 | RADIOLOGY REPORT ---
EXAMINATION: XR PORTABLE CHEST CLINICAL INFORMATION: Chest pain radiating to the back. Assess for aortic dissection. COMPARISON: Chest x-ray 07/07/2016. TECHNIQUE: Portable AP 80 degree semierect view of the chest was obtained. FINDINGS: The lung pino are well expanded bilaterally. The study redemonstrated opacity at the left costophrenic angle and left lower lobe, slightly decreased compared to the prior study, consistent with an effusion and possible left lower zone infiltrate. The right lung is well expanded and clear. The cardiac silhouette is normal. The aortic arch has normal contour. The central pulmonary vasculature is normal. The hilar regions appear normal. There are no acute osseous findings. There are multiple monitor leads overlying the chest. IMPRESSION: 1. There has been slight interval decrease in the left costophrenic angle and left lower lobe opacity compared to the prior study.
--- NOTE | 2016-07-11 10:28 | PN- Diabetes ---
Assessment/Plan Assessment: Patient is a 65-year-old male with a history of tobacco use, hypertension, dyslipidemia, gout, diabetes mellitus type 2 with HbA1c of 8.5%, and coronary artery disease with a recent acute coronary syndrome (anterior STEMI) s/p PCI on 06/16/2016 and renal insufficiency. He was admitted for pericarditis. Novolog coverage before meals was adjusted and Novolog coverage at bedtime was added on to his regimen. His FSGs were 234, 158 and 135. Plan: will continue the current insulin regimen; monitor FSGs. will follow. Subjective Subjective: He didn't have special complaints this morning. Objective Last 24 Hrs of Vital Signs/I&O Vital Signs Date Time Temp Pulse Resp B/P Pulse O2 O2 Flow FiO2 Ox Delivery Rate 07/11 0825 97.8 87 16 107/66 96 Room Air 07/11 0800 Room Air Room Air 07/11 0013 98.3 87 18 122/70 96 Room Air 07/10 1607 97.9 92 18 112/64 95 Room Air Intake & Output 07/11 1600 07/11 0800 07/11 0000 Intake Total 400 180 Output Total Balance 400 180 Intake, Oral 400 180 Findings Pertinent Lab/Eriberto Results: Laboratory Tests 07/11 0630 Chemistry Sodium (137 - 145 mmol/L) 135 L Potassium (3.5 - 5.1 mmol/L) 5.0 Chloride (98 - 107 mmol/L) 105 Carbon Dioxide (22 - 30 mmol/L) 19 L Anion Gap (5 - 16) 11 BUN (9 - 20 mg/dL) 38 H Creatinine (0.7 - 1.2 mg/dL) 1.5 H Estimated GFR (>60 ml/min) 47 L BUN/Creatinine Ratio (7 - 25 %) 25.3 H Magnesium (1.6 - 2.3 mg/dL) 2.0 Hematology CBC w Diff NO MAN DIFF REQ WBC (4.8 - 10.8 /CUMM) 11.6 H RBC (4.70 - 6.10 /CUMM) 4.55 L Hgb (14.0 - 18.0 G/DL) 13.6 L Hct (42 - 52 %) 41.3 L MCV (80.0 - 94.0 FL) 90.8 MCH (27.0 - 31.0 PG) 29.9 RDW (11.5 - 14.5 %) 14.7 H Plt Count (130 - 400 /CUMM) 332 MPV (7.4 - 10.4 FL) 10.0 Gran % (42.2 - 75.2 %) 69.8 Lymphocytes % (20.5 - 51.1 %) 18.4 L Monocytes % (1.7 - 9.3 %) 5.9 Eosinophils % (0 - 5 %) 5.3 H Basophils % (0.0 - 2.0 %) 0.6 Absolute Granulocytes (1.4 - 6.5 /CUMM) 8.1 H Absolute Lymphocytes (1.2 - 3.4 /CUMM) 2.1 Absolute Monocytes (0.10 - 0.60 /CUMM) 0.7 H Absolute Eosinophils (0.0 - 0.7 /CUMM) 0.6 Absolute Basophils (0.0 - 0.2 /CUMM) 0.1 PUBS MCHC (33.0 - 37.0 G/DL) 32.9 L
[2016-07-11 16:25] VITALS: BP 131/74
--- NOTE | 2016-07-11 16:39 | Patient Discharge Instructions ---
Discharge Instructions General Discharge Information You were seen/treated for: Pericarditis Special Instructions: Please follow up with Dr. Ghotra (director on air) within 1 week of discharge. Diet Continue normal diet: Yes Recommended Diet: Heart Healthy Activity Full Activity/No Limits: Yes (as tolerated) Acute Coronary Syndrome Inclusion Criteria At DC or during hospital stay patient has or had the following: ACS DIAGNOSIS No Discharge Core Measures Meds if any: Prescribed or Continued at Discharge Meds if any: NOT Prescribed or Continued at Discharge Congestive Heart Failure Inclusion Criteria At DC or during hospital stay patient has or had the following: CHF DIAGNOSIS No Discharge Core Measures Meds if any: Prescribed or Continued at Discharge Meds if any: NOT Prescribed or Continued at Discharge Cerebrovascular accident Inclusion Criteria At DC or during hospital stay patient has or had the following: CVA/TIA Diagnosis No Discharge Core Measures Meds if any: Prescribed or Continued at Discharge Meds if any: NOT Prescribed or Continued at Discharge Venous thromboembolism Inclusion Criteria VTE Diagnosis No VTE Type NONE VTE Confirmed by (Test) NONE Discharge Core Measures - Per Current guidelines, there needs to be overlap - treatment for the first 5 days of Warfarin therapy. - If discharged on Warfarin prior to 5 days of - overlap therapy, the patient will need to be - assessed for post discharge needs including - *Post discharge parental anticoagulation - *Warfarin and/or parental anticoagulation education - *Follow up date to check INR post discharge At least 5 days overlap therapy as Inpatient No Meds if any: Prescribed or Continued at Discharge Note: Overlap Therapy is Warfarin and Anticoagulant Meds if any: NOT Prescribed or Continued at Discharge
[2016-07-11] MEDS ORDERED: COLCHICINE0.6 M2 PO (16:43)
[2016-07-11] MEDS ORDERED: ASPIRIN EC325 M2 PO (16:56)
[2016-07-11] MEDS ORDERED: OMEPRAZOLE40 M1 PO (16:57)
--- NOTE | 2016-07-11 17:10 | PN- Cardiology ---
Subjective Subjective: Continues to feel improved and presently has only a mild amount of discomfort when he takes in a deep breath. Objective Vital Signs and I&Os Vital Signs Date Time Temp Pulse Resp B/P Pulse O2 O2 Flow FiO2 Ox Delivery Rate 07/11 1625 97.5 80 16 131/74 96 Room Air 07/11 1600 Room Air 07/11 0825 97.8 87 16 107/66 96 Room Air 07/11 0800 Room Air Room Air 07/11 0013 98.3 87 18 122/70 96 Room Air Intake & Output 07/11 1600 07/11 0800 07/11 0000 07/10 1600 07/10 0800 07/10 0000 Intake Total 720 400 180 480 480 Output Total Balance 720 400 180 480 480 Intake, Oral 720 400 180 480 480 Number 1 Bowel Movements Physical Exam: Well-developed, well-nourished elderly male in no acute distress. Vital signs: See above. Neck: No JVD, no bruits. Lungs: Decreased breath sounds bilaterally. Heart: S1, S2 no murmur, gallop, or rub appreciated. PMI fifth ICS at [facility]. Abdomen: Soft, nontender, positive bowel sounds. Extremities: No edema. Current Medications: Current Medications Sig/Jabier Start time Last Medication Dose Route Stop Time Status Admin Acetaminophen 650 MG Q6P PRN 07/07 2014 AC 07/08 PO 0849 Allopurinol 100 MG DAILY 07/08 1000 AC 07/11 PO 0851 Aspirin Buffered 650 MG TID 07/07 2199 AC 07/11 PO 1648 Atorvastatin Calcium 40 MG QPM 07/07 2199 AC 07/10 PO 2110 Clopidogrel Bisulfate 75 MG DAILY 07/08 1000 AC 07/11 PO 0850 Colchicine 600 MCG BID 07/07 2199 AC 07/11 PO 0850 Heparin Sodium 5,000 UNIT Q8 07/07 2199 AC 07/11 (Porcine) SC 1229 Insulin Aspart 0 TIDAC/HS 07/10 2100 AC 07/11 SC 1649 Omeprazole 40 MG DAILY AC 07/08 0700 AC 07/11 PO 0631 Oxycodone/ 1 TAB Q6P PRN 07/07 2014 AC Acetaminophen PO Patient Medication 1 ED .STK-MED ONE 07/11 1354 DC Teaching ED 07/11 1355 Sodium Chloride 2 SPRAY Q4P PRN 07/09 0945 AC 07/09 MARCIN 1016 Results Last 48 Hrs of Labs/Mics: Laboratory Tests 07/11/16 0630: Anion Gap 11, Estimated GFR 47 L, BUN/Creatinine Ratio 25.3 H, Magnesium 2.0, CBC w Diff NO MAN DIFF REQ, RBC 4.55 L, MCV 90.8, MCH 29.9, RDW 14.7 H, MPV 10.0, Gran % 69.8, Lymphocytes % 18.4 L, Monocytes % 5.9, Eosinophils % 5.3 H, Basophils % 0.6, Absolute Granulocytes 8.1 H, Absolute Lymphocytes 2.1, Absolute Monocytes 0.7 H, Absolute Eosinophils 0.6, Absolute Basophils 0.1, PUBS MCHC 32.9 L 07/10/16 0730: Anion Gap 10, Estimated GFR 43 L, BUN/Creatinine Ratio 20.6, CBC w Diff NO MAN DIFF REQ, RBC 4.26 L, MCV 91.2, MCH 30.0, RDW 15.0 H, MPV 10.1, Gran % 74.1, Lymphocytes % 14.4 L, Monocytes % 6.7, Eosinophils % 4.3, Basophils % 0.5, Absolute Granulocytes 10.9 H, Absolute Lymphocytes 2.1, Absolute Monocytes 1.0 H, Absolute Eosinophils 0.6, Absolute Basophils 0.1, PUBS MCHC 32.9 L Recent Imaging Studies: CXR (07/11/2016) There has been slight interval decrease in the left costophrenic angle and left lower lobe opacity compared to the prior study. Assessment/Plan Assessment/Plan Pericarditis that is gradually improving on a combination regimen of high-dose aspirin and colchicine with GI protection from PPI. The plan will be to continue with the same on an outpatient basis. We will follow-up within the next week and make further recommendations as needed. Continue telemetry? No
--- NOTE | 2016-07-18 18:13 | Discharge Summary ---
Visit Information Visit Dates Admission Date: 07/07/16 Discharge Date: 07/11/16 Hospital Course Course Attending Physician: MARION CHANG MD Primary Care Physician: RICKEY LOPEZ APRN [facility] Course: Mr. Barboza is a 65-year-old male with past medical history of CAD with anterior wall MN in CO2 2017 status post PCI/KIRK of culprit LAD stenosis and RCA stenosis , presumed COPD, hypertension, hyperlipidemia, CK stage III, type 2 diabetes not on treatment was sent in by his commercial collector Dr. Chang after his routine evaluation post PCI today at his office patient complain of new onset left-sided chest pain worse with inspiration. Patient was admitted to telemetery unit where the following problems were addressed: # Pericarditis His left-sided pleurtic chest pain was most likely 2/2 pericarditis in the setting of diffuse ST elevations without elevated troponins. Patient was kept on ASA 650 TID and Colchicine 600 mcg BID as well as his home med Plavix. Given the improvement in his sxs, we did not start steroids as per cardiology's receommendation. Echo (07/09) revealed normal left ventriculsr systolic function with mild concentric hypertrophy. Remarakble for small Pericardial effusion with no significant valvular abnormalities. He was discharged on ASA 650 TID and Colchicine 600 mcg BID and instructed to follow up with commercial collector Dr. Chang within a week. # Acute kidney injury Patient noted to have elevated creatinine of 1.5-1.6 for past couple months. Renal U/S (07/09) showed neither hydronephrosis nor nephrolithiasis. Only remarkable for bilateral renal cysts. We held the home med lisinopril during the admission. # New diagnosis of diabetes type II Hb A1C upon admission 8.5, FSG's ranging up to 240s. Patient was kept on NovoLog sliding scale with accuchecks. Endocrinology was consulted and adjusted the insulin scale accordingly. # Gout Patient was kept on allopurinol 100 mg daily. Allergies: Coded Allergies: No Known Allergies (06/16/16) Disposition Summary Disposition Principal Diagnosis: Pericarditis Additional Diagnosis: SAMRA Discharge Disposition: home or self care Discharge Instructions General Discharge Information Code Status: Full Code Patient's Diet: Heart healthy Patient's Activity: As tolerated Follow-Up Instructions/Appts: Please follow up with Dr. Chang (commercial collector) within 1 week of discharge. Medications at Discharge Discharge Medications: Stop taking the following medications: Aspirin (Ecotrin*) 325 MG TABLET. ORAL DAILY Continue taking these medications: Atorvastatin Calcium (Atorvastatin Calcium) 40 MG TABLET 1 Tablet ORAL Every night Qty = 30 Comments: Last Taken: 07/10/16 Time: 9 PM Clopidogrel Bisulfate (Clopidogrel) 75 MG TABLET 1 Tablet ORAL DAILY Qty = 30 Comments: Last Taken: 07/11/16 Time: 9 AM Lisinopril (Lisinopril) 10 MG TABLET 1 Tablet ORAL DAILY Qty = 30 Comments: NOT GIVEN IN HOSPITAL Allopurinol (Allopurinol) 100 MG TABLET 1 Tablet ORAL as needed for GOUT Comments: Last Taken: 07/11/16 Time: 9 AM Start taking the following new medications: Colchicine (Colchicine) 0.6 MG TABLET 600 Microgram ORAL TWICE DAILY Qty = 60 No Refills Aspirin (Ecotrin*) 325 MG TABLET. 650 Milligram ORAL THREE TIMES DAILY Qty = 90 No Refills Omeprazole (Omeprazole) 40 MG CAPSULE. 1 Capsule ORAL DAILY Qty = 30 No Refills Copies To: CHARLENE ALMAZAN,MARION Morgan
== END 2016-07-11 18:10 | DRG 281 ==
LOC: ENRESERVTM → ENRESERVDT → ERH 15:16 → ERHI 17:19 → 1NO 17:19
PROVIDERS: Internal Medicine; Internal Medicine Cardiovascular Disease; Physician Assistant; Student in an Organized Health Care Education/Training Program; ADMIT Internal Medicine Interventional Cardiology
DX: I31.9 Disease of pericardium, unspecified (principal); I21.09 ST elevation (STEMI) myocardial infarction involving other coronary artery of anterior wall; N17.9 Acute kidney failure, unspecified; R53.1 Weakness; I25.10 Atherosclerotic heart disease of native coronary artery without angina pectoris; Z95.5 Presence of coronary angioplasty implant and graft; E11.9 Type 2 diabetes mellitus without complications; I25.83 Coronary atherosclerosis due to lipid rich plaque; F17.210 Nicotine dependence, cigarettes, uncomplicated; J44.9 Chronic obstructive pulmonary disease, unspecified; I10 Essential (primary) hypertension; E78.5 Hyperlipidemia, unspecified; M10.9 Gout, unspecified; E87.5 Hyperkalemia; I30.9 Acute pericarditis, unspecified; I25.2 Old myocardial infarction
CPT/HCPCS: 1NSP; 84133; 84300; 36415; 76775; 81001; 82436; 82570; 93005; 93010; 93306; J1644; J3490

== ENCOUNTER 2016-08-30 17:13 | Emergency (ER) | payer OTHER, MEDICARE ==
[~2016-08-30] VITALS: Ht 188 cm; Wt 81.6 kg
[~2016-08-30 17:13] MED LIST: ALLOPURINOL100 M1 PO; ASPIRIN EC325 M2 PO; ATORVASTATIN CA40 M1 PO; CLOPIDOGREL75 M1 PO; COLCHICINE0.6 M2 PO; LISINOPRIL10 M1 PO; OMEPRAZOLE40 M1 PO
--- NOTE | 2016-08-30 17:52 | ED GENERAL ADULT ---
History of Present Illness General Chief Complaint: General Adult Stated Complaint: SENT BY DR. CHANG FOR ?INSULIN INJECTION PER PT Source: patient Exam Limitations: no limitations Allergies Coded Allergies: No Known Allergies (06/16/16) Reconcile Medications Allopurinol 100 MG TABLET 1 TAB PO PRN GOUT (Reported) Aspirin (Ecotrin*) 325 MG TABLET. 650 MG PO TID PERICARDITIS Atorvastatin Calcium 40 MG TABLET 1 TAB PO QPM CHOLESTEROL (Reported) Clopidogrel Bisulfate (Clopidogrel) 75 MG TABLET 1 TAB PO DAILY BLOOD THINNER (Reported) Colchicine 0.6 MG TABLET 600 MCG PO BID Pericarditis Lisinopril 10 MG TABLET 1 TAB PO DAILY BP (Reported) Metformin HCl 500 MG TABLET 1 TAB PO BID HYPERGLYCEMIA Omeprazole 40 MG CAPSULE. 1 CAP PO DAILY GI PROPHYLAXIS Triage Note: PT TO ED FOR ? INSULIN INJECTION. PT STATES HE HAD OUT PATIENT BLOODWORK THIS AFTERNOON. WAS CALLED BY DR CHANG'S OFFICE WITH GLUCOSE OF 600 AND TOLD TO COME TO ED. PT WITH H/O DM, STATES HE'S BEEN DRINKING A LOT OF SUGAR. STATES RIGHT BEFORE BLOODWORK THIS AFTERNOON HE DRANK OJ AND SUGAR DRINKS. PT RESISTIVE TO CARE BUT AWARE HE NEEDS TO SEE MD BEFORE HE CAN LEAVE. STATES "JUST GIVE ME A SHOT, I DON'T WANT TO BE HERE". FINGERSTICK 377. PT TO ROOM 8 FOR PROVIDER OFE. Triage Nurses Notes Reviewed? yes HPI: This patient is a 65 year old male with a past medical history including CAD and STEMI s/p cardiac stent placement, borderline diabetes, and COPD who presented to the emergency department today at the request of neuropsychology service director, Dr. Chang, for, "an insulin shot or something." The patient reported that he has had issues with his sugar being high in the past, but denied having a diagnosis of diabetes. He reported that he was asked by his neuropsychology service director to give bloodwork today. Afterward, he recieved a call from Dr. Chang's office requesting that he go to the emergency department for a shot of insulin because he serum glucose was 600. On arrival, the patient had a fingerstick glucose level of 377. Patient reported that just prior to giving bloodwork today he drank half a gallon of [place] juice and a liter of soda. He reported that he has been feeling tired lately but otherwise denied any chest pain, difficulty breathing, nausea, abdominal pain, vomiting, tingling in his extremities, headache, fevers, or any other associated symptoms. (SESAR BLACK PA-C) Vital Signs & Intake/Output Vital Signs & Intake/Output ED Intake and Output 08/31 0000 08/30 1200 Intake Total 0 Output Total Balance 0 Intake, Oral 0 Patient 180 lb Weight Weight Reported by Patient Measurement Method Past History Travel History Traveled to [place] past 21 day No Medical History Any Pertinent Medical History? see below for history Neurological: NONE EENT: hearing loss Cardiovascular: CAD, hypertension, hyperlipidemia, STEMI, (DOES TAKE THE MEDS) STENT PLACEMENT 06/16 PCI/KIRK to LAD and RCA; PCI/POBA ostial Dx 2. 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 No (SESAR BLACK PA-C) Review of Systems Review of Systems Constitutional: Reports: no symptoms. EENTM: Reports: no symptoms. Respiratory: Reports: no symptoms. Cardiovascular: Reports: no symptoms. GI: Reports: no symptoms. Genitourinary: Reports: no symptoms. Musculoskeletal: Reports: no symptoms. Skin: Reports: no symptoms. Neurological/Psychological: Reports: no symptoms. Hematologic/Endocrine: Reports: see HPI. All Other Systems: Reviewed and Negative (SESAR BLACK PA-C) Physical Exam Physical Exam General Appearance: well developed/nourished, no apparent distress, alert, awake Comments: General: Well-developed, well-nourished person in no acute distress HEENT: Head normocephalic, moist mucous membranes Neck: Supples Back: Normal gait Respiratory: No respiratory distress. Speaking in full sentences Neuro: A&Ox3. Cranial nerves grossly intact Psych: Mood and affect normal Core Measures ACS in differential dx? No CVA/TIA Diagnosis: No Severe Sepsis Present: No Septic Shock Present: No (SESAR BLACK PA-C) Progress Differential Diagnoses I considered the following diagnoses in my evaluation of the patient: [diabetes, DKA, ACS, hyperglycemia] Plan of Care: Current Medications Sig/Jabier Start time Last Medication Dose Stop Time Status Admin Insulin Human Regular 10 UNITS ONCE ONE 08/30 1744 UNVr (NovoLIN R) 08/30 1745 Initial ED EKG: none Comments: 08/30/2016 5:51:18 PM: Patient is refusing all blood work. He is refusing IV for fluids and medication. (SESAR BLACK PA-C) Departure Departure Disposition: HOME OR SELF CARE Condition: Stable Clinical Impression Primary Impression: Hyperglycemia Referrals: RICKEY LOPEZ APRN (PCP/Family) GENOVEVA ALMAZAN,OLI Additional Instructions: PLEASE FOLLOW-UP WITH CUSTOM FEED MILL OPERATOR WHOSE INFORMATION HAS BEEN PROVIDED TO YOU IN THIS PACKET. TAKE METFORMIN PRESCRIBED. RETURN FOR ANY WORSENING SYMPTOMS OR CONCERNS. Departure Forms: Customer Survey General Discharge Information Prescriptions: Current Visit Scripts Metformin HCl 1 TAB PO BID #20 TAB (SESAR BLACK PA-C) PA/SOFTWARE SOLUTIONS ARCHITECT Co-Sign Statement Statement: ED Attending supervision documentation- [X] I saw and evaluated the patient. I have also reviewed all the pertinent lab results and diagnostic results. I agree with the findings and the plan of care as documented in the PA's/SOFTWARE SOLUTIONS ARCHITECT's documentation. [X] I have reviewed the ED Record and agree with the PA's/SOFTWARE SOLUTIONS ARCHITECT's documentation. [] Additions or exceptions (if any) to the PAs/SOFTWARE SOLUTIONS ARCHITECT's note and plan are summarized below: [] (RAMY ALMAZAN,KAMILLE) Critical Care Note Critical Care Note Critical Care Time: non-applicable (SESAR BLACK PA-C)
[2016-08-30] MEDS ORDERED: METFORMIN HCL500 M3 PO (18:28)
[2016-08-30 18:40] VITALS: BP 124/74
== END 2016-08-30 18:41 ==
LOC: ERH 17:13
DX: E11.65 Type 2 diabetes mellitus with hyperglycemia (principal)
CPT/HCPCS: 96372; J1815

== ENCOUNTER 2016-09-05 12:01 | Emergency (ER) | payer OTHER, MEDICARE ==
[~2016-09-05] VITALS: Ht 188 cm; Wt 88.0 kg
[~2016-09-05 12:01] MED LIST changes: +METFORMIN HCL500 M3 PO
--- NOTE | 2016-09-05 12:29 | ED NEURO DEFICIT/STROKE ---
History of Present Illness General Chief Complaint: General Adult Stated Complaint: PER PT"LOST FEELING IN R ARM/LEG,DIZZINESS" Source: patient, old records Exam Limitations: no limitations Vital Signs & Intake/Output Vital Signs & Intake/Output Vital Signs Date Time Temp Pulse Resp B/P B/P Pulse O2 O2 Flow FiO2 Mean Ox Delivery Rate 09/05 1320 97.7 90 20 160/80 98 Room Air 09/05 1234 99 Room Air 09/05 1211 97.2 91 20 173/89 98 Room Air ED Intake and Output 09/06 0000 09/05 1200 Intake Total 0 Output Total Balance 0 Intake, Oral 0 Patient 194 lb Weight Weight Reported by Patient Measurement Method Allergies Coded Allergies: No Known Allergies (06/16/16) Reconcile Medications Allopurinol 100 MG TABLET 1 TAB PO PRN GOUT (Reported) Aspirin (Ecotrin*) 325 MG TABLET. 650 MG PO TID PERICARDITIS Atorvastatin Calcium 40 MG TABLET 1 TAB PO QPM CHOLESTEROL (Reported) Clopidogrel Bisulfate (Clopidogrel) 75 MG TABLET 1 TAB PO DAILY BLOOD THINNER (Reported) Colchicine 0.6 MG TABLET 600 MCG PO BID Pericarditis Lisinopril 10 MG TABLET 1 TAB PO DAILY BP (Reported) Metformin HCl 500 MG TABLET 1 TAB PO BID HYPERGLYCEMIA Omeprazole 40 MG CAPSULE.DR 1 CAP PO DAILY GI PROPHYLAXIS Triage Note: PT STATES HE WAS DRIVING IN THE CAR AND HIS RIGHT ARM AND RIGHT LEG a"WENT ". STATES NUMBNESS AND WEAKNESS EPISODE LASTED ABOUT 15 MINUTES AND NOW SYMPTOMS ARE RESOLVED. NEUROS INTACT IN TRIAGE Triage Nurses Notes Reviewed? yes Onset: Abrupt Duration: minute(s): (15), better, resolved prior to arrival Timing: recent history Severity: mild New Weakness: RUE Altered Sensations: RUE Vision Problem? No Baseline: alert, oriented x 3 Associated Symptoms: denies HPI: 65-year-old male with history of diabetes coronary artery disease presents to ER for evaluation after he developed 2 episodes of right arm numbness. The first episode was last night that came on while at rest, and then came again approximately earlier this morning around 9:[address] He states he went home and began to feel dizzy so he came to the ER. On arrival patient denies any complaints there is no chest pain palpitations dizziness lightheadedness at this time. He denies headache vision changes or leg weakness numbness or tingling at this time. The patient denies any facial droop difficulty finding words or speaking no confusion no recent fall or trauma he denies any alcohol or drug use. (NATALIE SHAH) Past History Travel History Traveled to [place] past 21 day No Medical History Any Pertinent Medical History? see below for history Neurological: NONE EENT: hearing loss Cardiovascular: CAD, hypertension, hyperlipidemia, STEMI, (DOES TAKE THE MEDS) STENT PLACEMENT 06/16 PCI/KIRK to LAD and RCA; PCI/POBA ostial Dx 2. 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 No (NATALIE SHAH) Review of Systems Review of Systems Constitutional: Reports: see HPI. All Other Systems: Reviewed and Negative Comments Review of systems: See HPI, All other systems negative. Constitutional, no chills no fever, no malaise HEENT: No visual changes no sore throat no congestion, Cardiovascular: No chest pain , no palpitation Skin: no rashes, no change in skin Respiratory: No dyspnea no cough no sputum GI: No nausea no vomiting, no diarrhea, : No dysuria No hematuria, no frequency, no discharge Muscle skeletal: No joint pain, no joint swelling, no back pain, no neck pain, Neurologic: numbness no confusion, no headache Psych: No stress Heme/endocrine: No bruising no bleeding Immunology: No lymphadenopathy (NATALIE SHAH) Physical Exam Physical Exam General Appearance: well developed/nourished, no apparent distress, alert, awake Cranial Nerves: normal hearing, normal speech, PERRL Coordination/Gait: normal finger to nose, normal gait Motor/Sensory: no motor/sensory deficits Reflexes: 2+: tricep (L), tricep (L). Comments: Well-developed well-nourished person in no acute distress HEENT: Normal EENT exam; PERRL, EOMI, no nystagmus. HEAD is atraumatic. moist mucous membranes. Neck: Supple, no lymphadenopathy, normal range of motion Back: Nontender, no CVA tenderness. Full range of motion Cardiovascular: Regular rate and rhythms no murmurs rubs Respiratory: Chest nontender.There were no bony deformities, no asymmetry. No respiratory distress. Patient speaking in full complete sentences. Breath sounds clear to auscultation bilaterally: NO W/R/R Abdomen: Soft, nontender nondistended, no appreciable organomegaly. Normal bowel sounds. No rebound/guarding,. Extremity: No edema, full range of motion of extremities, normal and equal pulses bilaterally, 5 out of 5 strength noted to bilateral upper and lower extremities Neuro: Alert oriented x3, motor sensory normal, cranial nerves II through XII grossly intact. There were no obvious focal neurologic abnormalities. Skin: No appreciable rash on exposed skin, skin is warm and dry. Psych: Mood and affect is normal, memory and judgment is normal. Core Measures CVA/TIA Diagnosis: No Severe Sepsis Present: No Septic Shock Present: No (NATALIE SHAH) Progress Differential Diagnosis: electrolyte imbalance, intracranial Hem., intracranial mass/tumor, migraine HERNANDEZ, stroke, AMI, ELECTROLYTE ABNORMALITY, MUSCLE STRAIN, RADICULOPATHY, VERTIGO Plan of Care: Orders Procedure Date/time Status Telemetry/Protective Signal Superintendent 09/05 1222 Active TROPONIN LEVEL 09/05 1222 Complete ETHANOL 09/05 1222 Complete COMPREHENSIVE METABOLIC PANEL 09/05 1222 Complete CBC WITHOUT DIFFERENTIAL 09/05 1222 Complete EKG 09/05 1202 Active Laboratory Tests 09/05/16 1227: Anion Gap 11, Estimated GFR 41 L, BUN/Creatinine Ratio 22.4, Glucose 374 H, Calcium 8.7, Total Bilirubin 0.6, AST 27, ALT 34, Alkaline Phosphatase 114, Troponin I 0.01, Total Protein 7.0, Albumin 3.6, Globulin 3.4, Albumin/Globulin Ratio 1.1, CBC w Diff NO MAN DIFF REQ, RBC 4.70, MCV 87.0, MCH 30.1, RDW 15.2 H , MPV 9.6, Gran % 63.3, Lymphocytes % 22.3, Monocytes % 6.8, Eosinophils % 7.1 H, Basophils % 0.5, Absolute Granulocytes 5.5, Absolute Lymphocytes 1.9, Absolute Monocytes 0.6, Absolute Eosinophils 0.6, Absolute Basophils 0, PUBS MCHC 34.5, Serum Alcohol < 10.0 LABS ORDERED, CASEN AND EKG REVIEWED WITH DR HUGHES. PT DENIES ANY SX AT THIS TIME, he is refusing ct of the head old records reviewed, pt was seen in this er last week for eelvated blood sugars. Case discussed with Dr. Ghotra he will fax over an old EKG from the office, he agreed to plan for repeat troponin EKG at 1630 and will decide the patient's disposition at that time I discussed with the pt all of his labs including elevated blood sugar, cr is at baseline. i d/w him the plan with the patient after speaking with Dr. Ghotra recommended that the patient have a repeat troponin EKG performed at 1630 present at that time the patient states that he is not waiting, he states that he has food in his car from the grocery store that he has to get home. I discussed the patient and attempted to reason with him the arms given the acute EKG changes from June and his symptoms today which she's had none of here. The patient states that he understands these risks of possible worsening of his symptoms possible myocardial infarction, he willingly signed out AGAINST MEDICAL ADVICE case discussed with Dr. Hughes (NATALIE SHAH) Initial ED EKG: nsr at 80, 1st degree block, diffuse t wave inversions Prior EKG: changed (06/2016) Rhythm Strip: normal sinus rhythm (NATALIE SHAH) Departure Departure Time of Disposition: 1318 Disposition: LEFT AGAINST MEDICAL ADVICE Condition: Stable Clinical Impression Primary Impression: Acute electrocardiogram changes Referrals: RICKEY LOPEZ APRN (PCP/Family) CHARLENE ALMAZAN,MARION Morgan Additional Instructions: As discussed it was recommended to you that at a minimum be monitored over the next several hours and we repeat an EKG and blood work and 4 hours which you have declined. Return immediately if you change your mind and wish to be treated as was recommended or if you have any other concerns including arm numbness chest pain shortness of breath or any other concerns Departure Forms: Customer Survey General Discharge Information (NATALIE SHAH) PA/SPECIAL EVENTS PLANNER Co-Sign Statement Statement: ED Attending supervision documentation- [X] I saw and evaluated the patient. I have also reviewed all the pertinent lab results and diagnostic results. I agree with the findings and the plan of care as documented in the PA's/SPECIAL EVENTS PLANNER's documentation. [X] I have reviewed the ED Record and agree with the PA's/SPECIAL EVENTS PLANNER's documentation. [] Additions or exceptions (if any) to the PAs/SPECIAL EVENTS PLANNER's note and plan are summarized below: [] (RAMY ALMAZAN,KAMILLE)
[2016-09-05 12:33] LABS: ABSOLUTE BASOPHIL COUNT 0 /CUMM (0.0-0.2); ABSOLUTE EOSINOPHIL COUNT 0.6 /CUMM (0.0-0.7); ABSOLUTE GRANULOCYTE CT 5.5 /CUMM (1.4-6.5); ABSOLUTE LYMPH COUNT 1.9 /CUMM (1.2-3.4); ABSOLUTE MONOCYTE COUNT 0.6 /CUMM (0.10-0.60); BASOPHIL % 0.5 % (0.0-2.0); EOSINOPHIL % 7.1 % (0-5); GRANULOCYTE % 63.3 % (42.2-75.2); HEMATOCRIT 40.9 % (42-52); MEAN CORPUSCULAR HGB 30.1 PG (27.0-31.0); MEAN CORPUSCULAR HGB CONC 34.5 G/DL (33.0-37.0); MEAN PLATELET VOLUME 9.6 FL (7.4-10.4); PLATELET COUNT 153 /CUMM (130-400); RBC DISTRIBUTION WIDTH 15.2 % (11.5-14.5); WHITE BLOOD CELL COUNT 8.7 /CUMM (4.8-10.8)
[2016-09-05 13:20] VITALS: BP 160/80
== END 2016-09-05 13:22 | disposition left against medical advice (07) ==
LOC: ERH 12:01
PROVIDERS: Physician Assistant Medical
DX: R94.31 Abnormal electrocardiogram [ECG] [EKG] (principal)
CPT/HCPCS: 93005; 93010; G0480

== ENCOUNTER 2016-09-07 07:55 | Inpatient (IN) | payer OTHER, MEDICARE ==
[~2016-09-07] VITALS: Ht 188 cm; Wt 83.9 kg
--- NOTE | 2016-09-07 08:04 | NUR ---
65 YO MALE TO TRIAGE C/O "CONFUSION" PT STATES HE WAS SEEN HERE A COUPLE DAYS AGO FOR SAME BUT "THEY DIDNT FIND ANYTHING" STATES "I GET DIZZY AND THEN IM ALL CONFUSED" PT A&O X4. NEUROS INTACT. PT DX OF DM, BS 210 IN TRIAGE. PT DENIES PAIN. PT NOT MAKING SENSE AT TIMES DURING TRIAGE. C/O R ARM NUMBESS "ON AND OFF" EQUAL HAND GRAPS.
--- NOTE | 2016-09-07 08:16 | ED GENERAL ADULT ---
History of Present Illness General Chief Complaint: General Adult Stated Complaint: PER PT "IM CONFUSED" Source: patient, family, old records Exam Limitations: poor historian Vital Signs & Intake/Output Vital Signs & Intake/Output Vital Signs Date Time Temp Pulse Resp B/P B/P Pulse O2 O2 Flow FiO2 Mean Ox Delivery Rate 09/08 0830 97.6 80 16 152/96 95 Room Air 09/07 2349 98.9 89 18 186/88 96 Room Air 09/07 1940 98.3 80 18 180/98 97 Room Air 09/07 1835 97.0 79 18 137/92 98 Room Air Room Air 09/07 1640 96.7 79 18 147/88 98 Room Air Room Air 09/07 1444 96.4 76 15 161/77 97 Room Air Room Air 09/07 1310 96.4 81 15 157/81 98 Room Air Room Air 09/07 1122 85 15 140/72 09/07 1011 84 18 197/98 98 Room Air 09/07 0921 Room Air Room Air ED Intake and Output 09/08 0000 09/07 1200 Intake Total 0 Output Total 600 Balance -600 0 Intake, Oral 0 Output, Urine 600 Patient 185 lb 230 lb Weight Weight Standing Scale Reported by Patient Measurement Method Allergies Coded Allergies: No Known Allergies (06/16/16) Reconcile Medications Allopurinol 100 MG TABLET 1 TAB PO PRN GOUT (Reported) Aspirin (Ecotrin*) 325 MG TABLET. 650 MG PO TID PERICARDITIS Atorvastatin Calcium 40 MG TABLET 1 TAB PO QPM CHOLESTEROL (Reported) Clopidogrel Bisulfate (Clopidogrel) 75 MG TABLET 1 TAB PO DAILY BLOOD THINNER (Reported) Colchicine 0.6 MG TABLET 1 TAB PO BID PRN PERICARDITIS (Reported) Lisinopril 10 MG TABLET 1 TAB PO DAILY BP (Reported) Metformin HCl 500 MG TABLET 1 TAB PO BID HYPERGLYCEMIA Omeprazole 40 MG CAPSULE.DR 1 CAP PO DAILY PRN GI (Reported) Triage Note: 65 YO MALE TO TRIAGE C/O "CONFUSION" PT STATES HE WAS SEEN HERE A COUPLE DAYS AGO FOR SAME BUT "THEY DIDNT FIND ANYTHING" STATES "I GET DIZZY AND THEN IM ALL CONFUSED" PT A&O X4. NEUROS INTACT. PT DX OF DM, BS 210 IN TRIAGE. PT DENIES PAIN. PT NOT MAKING SENSE AT TIMES DURING TRIAGE. C/O R ARM NUMBESS "ON AND OFF" EQUAL HAND GRAPS. Triage Nurses Notes Reviewed? yes Onset: Gradual Duration: worse persistent since (2-3 DAYS) Timing: recent history Injury Environment: home Severity: moderate Severity Numbers: 7 No Modifying Factors: none HPI: Patient is a 65-year-old male with history of diabetes, chronic renal failure, hypertension presenting to the emergency department with chief complaint of intermittent confusion and right arm weakness has been going on and off for the past couple days. He reports that he woke up this morning and he felt "off" and decided to drive here, got in the car and couldn't figure out up into drive. He reports that he managed to drive here but felt it was unsafe. He was seen here 2 days ago and they did blood work, they wanted him to stay for repeat troponins and EKGs the patient refused. Patient denying any nausea or vomiting. No chest pain or palpitations. Denies shortness of breath. Denies any alcohol or drug use. Reports that he had a heart attack in June of this year and had stents placed. He takes Plavix daily. He reports that he stopped taking his cholesterol medication because a family member got sick from it before and he was nervous about that. Patient states that he develops right arm weakness suddenly the other day when he was out shopping for food. Lasted about 10 minutes and then resolved. He reports that he's had approximately 2 more episodes since that first episode. Reports symptoms are somewhat improved now compared to what they were last night. Denies any left-sided symptoms. Denies any trouble swallowing or breathing. He reports intermittent confusion, feels like he is in a fog. Denies noticing any facial droop. (CARLENE COTTON,MARITO) Past History Travel History Traveled to [place] past 21 day No Medical History Any Pertinent Medical History? see below for history Neurological: NONE EENT: hearing loss Cardiovascular: CAD, hypertension, hyperlipidemia, STEMI, (DOES TAKE THE MEDS) STENT PLACEMENT 06/16 PCI/KIRK to LAD and RCA; PCI/POBA ostial Dx 2. 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 No (MARITO KELLEY) Review of Systems Review of Systems Constitutional: Reports: no symptoms. Comments Review of systems: See HPI, All other systems negative. Constitutional, no chills fever or weight loss HEENT: No visual changes no sore throat no congestion Cardiovascular: No chest pain ,palpitation , orthopnea or ankle swelling Skin, no jaundice no rashes Respiratory: No dyspnea cough sputum or hemoptysis GI: No nausea no vomiting : No dysuria No hematuria Muscle skeletal: no back pain, no neck pain, Neurologic: POS NUMBNESS IN RIGHT ARM AND CONFUSION INTERMITTENTLY Psych: No stress anxiety or depression,. Heme/endocrine: No bruising no bleeding no polyuria or polydipsia Immunology: No splenectomy or history of AIDS (MARITO KELLEY) Physical Exam Physical Exam General Appearance: well developed/nourished, no apparent distress, alert, awake , comfortable Comments: Well-developed well-nourished person in no acute distress HEENT: Normal EENT exam, extraocular motion intact, MILD HORIZONTAL nystagmus. Pupils equally round and reactive to light and accommodation. Nose is atraumatic. External auditory canal and Tympanic membranes clear. Pharynx normal. No swelling or edema. Neck: Supple, no lymphadenopathy, normal range of motion without pain or tenderness Back: Nontender, no CVA tenderness. Full range of motion Cardiovascular: Regular rate and rhythms no murmurs rubs or gallops, normal JVP, UNABLE YOU APPRECIATE ANY CAROTID BRUITS ON EXAM. Respiratory: Chest nontender. No respiratory distress.breath sounds clear to auscultation bilaterally Abdomen: Soft, nontender nondistended, no appreciable organomegaly. Normal bowel sounds. No ascites, NO REBOUNDING OR GAURDING Extremity: No edema, no calf tenderness to palpation, normal and equal pulses. Capillary refill is intact in upper extremities bilaterally. Neuro: Alert oriented x3, motor sensory normal, cranial nerves II through XII grossly intact. No arm drift noted. Muscular strength is 5 out of 5 in all extremities. Fire Protection Equipment Technician strength is equal and symmetric bilaterally. Patellar reflexes are 2+ bilaterally. Babinski reflexes intact lower extremities bilaterally. Skin: No appreciable rash on exposed skin, skin is warm and dry. Psych: Mood and affect is normal, memory and judgment is normal. Core Measures ACS in differential dx? Yes CVA/TIA Diagnosis: Yes NIH Stroke Scale: Total 1 Dt/Tm Last Known Well: No Comment: Swallow study performed. Patient passed. Able to tolerate thin liquids without offing or choking. Severe Sepsis Present: No Septic Shock Present: No (CARLENE COTTON,MARITO) Progress Differential Diagnoses I considered the following diagnoses in my evaluation of the patient: TIA, CVA, cervical radiculopathy, electrolyte abnormality, ACS, sepsis, UTI, pneumonia Plan of Care: Orders Procedure Date/time Status Nothing by Mouth 09/08 B Active Occupational Tx Eval & Treat 09/08 0800 Active CBC WITHOUT DIFFERENTIAL 09/08 0600 Complete BASIC ELECTROLYTES PLUS BUN&CR 09/08 0600 Complete NIH Stroke Scale 09/08 UNK Active Heart Healthy Diet 09/07 D Complete Vital Signs 09/07 2238 Active Teach/Educate 09/07 223 Active Pain Treatment and Response 09/07 223 Active Nutritional Intake, Monitor 09/07 223 Active Isolation 09/07 2238 Active Intake & Output 09/07 2238 Active Patient Care Conference 09/07 2238 Active Activity/Ambulation 09/07 2238 Active TROPONIN LEVEL 09/07 2200 Complete TROPONIN LEVEL 09/07 1600 Complete Add-on Test (ER Only) 09/07 1504 Active Pathway - chart 09/07 1408 Active Code Status 09/07 1408 Active Misc Message 09/07 1329 Active ED Holding Orders 09/07 1329 Active Admit to inpatient 09/07 1329 Active Vital Signs 09/07 1329 Active Code Status 09/07 1329 Complete Patient Data 09/07 1321 Active Add-on Test (ER Only) 09/07 1320 Active NIH Stroke Scale 09/07 1310 Active Add-on Test (ER Only) 09/07 1100 Active Intake & Output 09/07 0920 Active LIPID PANEL 09/07 0850 Complete GLYCOSYLATED HGB 09/07 0850 Complete FingerStick- Glucose 09/07 0802 Active SWALLOW EVALUATION 09/07 UNK Active PT Evaluate & Treat 09/07 UNK Active House Staff 09/07 UNK Active VTE Mechanical Prophylaxis 09/07 UNK Active Vital Signs 09/07 UNK Active Current Medications Sig/Jabier Start time Last Medication Dose Stop Time Status Admin Allopurinol 100 MG DAILY 09/08 1000 AC (Zyloprim) Aspirin Buffered 325 MG DAILY 09/08 1000 AC (Ecotrin) Clopidogrel Bisulfate 75 MG DAILY 09/08 1000 AC (Plavix) Lisinopril 10 MG DAILY 09/08 1000 AC (Prinivil) Omeprazole 40 MG DAILY AC 09/08 0700 AC (Prilosec) Aspirin Buffered 650 MG BID 09/07 220 CAN (Ecotrin) Atorvastatin Calcium 40 MG QPM 09/07 2200 CAN (Lipitor) Colchicine 600 MCG BID 09/07 2200 AC 09/07 (Colchicine 600MCG 2148 Tab) Heparin Sodium 5,000 UNIT Q8 09/07 2200 AC (Porcine) Insulin Detemir 10 UNITS BID 09/07 2200 AC 09/07 (Levemir) 2155 Atorvastatin Calcium 80 MG 1700 09/07 1700 AC (Lipitor) Insulin Aspart 0 TIDAC 09/07 1700 AC 09/07 (NovoLOG) 1833 Acetaminophen 650 MG Q6P PRN 09/07 1415 AC (Tylenol) Hydromorphone HCl 1 MG Q6P PRN 09/07 1415 AC (Dilaudid) Laboratory Tests 09/08/16 0600: Anion Gap 12, Estimated GFR 43 L, BUN/Creatinine Ratio 17.5, CBC w Diff NO MAN DIFF REQ, RBC 4.97, MCV 88.6, MCH 29.9, RDW 15.8 H, MPV 10.2, Gran % 62.9, Lymphocytes % 22.5, Monocytes % 8.0, Eosinophils % 6.1 H, Basophils % 0.5, Absolute Granulocytes 6.7 H, Absolute Lymphocytes 2.4, Absolute Monocytes 0.8 H, Absolute Eosinophils 0.6, Absolute Basophils 0.1, PUBS MCHC 33.7 09/07/16 2345: Troponin I 0.02 09/07/16 1820: Troponin I 0.02 09/07/16 1128: Lactic Acid Cancelled 09/07/16 1021: Urine Opiates Screen < 100.00, Methadone Screen < 40, Barbiturate Screen < 60, Ur Phencyclidine Scrn < 6.00, Amphetamines Screen < 100, U Benzodiazepines Scrn < 85, Urine Cocaine Screen < 50, Urine Cannabis Screen < 5.00, Urine Color YEL, Urine Clarity CLEAR, Urine pH 6.5, Ur Specific [place] 1.020, Urine Protein 100 H, Urine Ketones NEG, Urine Nitrite NEG, Urine Bilirubin NEG, Urine Urobilinogen 1.0, Ur Leukocyte Esterase NEG, Ur Microscopic SEDIMENT EXAMINED, Urine RBC 15- 25 H, Urine WBC 1-3 H, Ur Epithelial Cells RARE, Urine Bacteria RARE H, Hyaline Casts RARE H, Urine Hemoglobin MOD H, Urine Glucose 500 H 09/07/16 0855: pH 7.43, pCO2 33 L, pO2 84, HCO3 21, ABG O2 Sat (Measured) 96.0, P-50 (Temp Corrected) N, Carboxyhemoglobin 1.2 L, O2 Concentration % .21, O2 Delivery Method RA, Phlebotomy Draw Site RIGHT RADIAL Diagnostic Imaging: Viewed by Me: CT Scan, MRI. Discussed w/RAD: CT Scan, MRI. Radiology Impression: PATIENT: MELISSA BAKER PRESENT AGE: 65 PATIENT ACCOUNT NO: [id number] : 49 LOCATION: [facility] ORDERING PHYSICIAN: MARITO COTTON SERVICE DATE: 09/07/16 EXAM TYPE: MRI - MRI-HEAD W/O IVORY MR BRAIN WITHOUT CONTRAST CLINICAL INFORMATION: Intermittent arm weakness and confusion. COMPARISON: Head CT performed earlier today. TECHNIQUE: MRI of the brain without contrast was obtained using routine sequences. FINDINGS: There is a small 7 mm acute infarct within the left caudate head on image 62 of series 3. There are no additional acute infarcts. There is a chronic lacunar infarct within the head of the right caudate as noted on the recent CT study. There is some chronic hemosiderin staining in this location. There are T2 signal changes throughout the supratentorial white matter, most likely chronic microangiopathy. There is no hydrocephalus, extra-axial surface collection, or herniation. The major flow voids at the skull base are preserved. There is no acute intracranial hemorrhage on the gradient recalled echo acquisition. The midline structures are normal. The cerebellar tonsils are normally positioned. The cerebellum and brainstem are normal. The craniocervical junction is normal. Osseous marrow signal intensity is homogenous. The visualized soft tissues are unremarkable. IMPRESSION: - There is a small 7 mm acute infarct within the left caudate head. - Moderate chronic microangiopathy and a chronic lacunar infarct within the right caudate head. DICTATED BY: RAMIRO PANDA MD DATE/TIME DICTATED:09/07/161213 ERGONOMICS CONSULTANT:LISA DATE/ TIME TRANSCRIBED:09/07/161213 CONFIDENTIAL, DO NOT COPY WITHOUT APPROPRIATE AUTHORIZATION. <Electronically signed in Other Vendor System> SIGNED BY: RAMIRO PANDA MD 09/07/16 1225, PRESENT AGE: 65 PATIENT ACCOUNT NO: [id number] : 49 LOCATION: [facility] ORDERING PHYSICIAN: MARITO COTTON SERVICE DATE: 09/07/16 EXAM TYPE: CAT - CT HEAD WO IV CONTRAST EXAMINATION: CT HEAD WITHOUT CONTRAST CLINICAL INFORMATION: Right arm weakness COMPARISON: None TECHNIQUE: Contiguous axial imaging was performed from the skull base to vertex without intravenous administration of contrast. DLP: 618.39 mGy-cm FINDINGS: There is no evidence of acute intra-axial or extra-axial hemorrhage. No acute mass effect or midline shift. Low-attenuation noted in the right caudate measuring approximately 1 x 1 cm (series 2 image 25-26). Hounsfield units are compatible with fluid attenuation. Subtle low-attenuation also noted in the region of the left caudate head. There is moderate periventricular and subcortical white matter low-attenuation compatible with small vessel ischemic disease. No gross evidence of acute loss of orozco-white differentiation. The mastoid air cells and visualized portions of the paranasal sinuses are well aerated. IMPRESSION: 1. Approximately 1 x 1 cm low-attenuation right caudate may represent old lacunar infarct. Hounsfield units are more in keeping with cystic change. No surrounding edema or mass effect. Comparison to older exams if available is recommended. Findings can also be further assessed with MRI. Subtle and small lacunar infarct left caudate head. 2. Moderate small vessel ischemia. 3. No acute intracranial pathology. DICTATED BY: MACKENZIE MCCONNELL MD DATE/TIME DICTATED:09/07/16857 ERGONOMICS CONSULTANT:LISA DATE/TIME TRANSCRIBED:857 CONFIDENTIAL, DO NOT COPY WITHOUT APPROPRIATE AUTHORIZATION. < Electronically signed in Other Vendor System> SIGNED BY: MACKENZIE MCCONNELL MD 09/07/16 0910 Initial ED EKG: NSR 83 BPM, FIRST DEGREE AV BLOCK, PROBABLE LEFT ATRIAL ABNORMALITY, RBBB,LAFB Prior EKG: unchanged Comments: CVA seen on MRI. Patient will be admitted, neurology consult. Given aspirin. swallow study unremarkable. (MARITO KELLEY) Comments: 09/07/2016 1:04:03 PM patient's case discussed by me with Dr. Noel. (KRISTINE ALMAZAN,RAMIRO Sykes) Departure Departure Time of Disposition: 1317 Disposition: HOME OR SELF CARE Condition: Stable Clinical Impression Primary Impression: Cerebral vascular accident Qualifiers: CVA mechanism: unspecified Qualified Code: I63.9 - Cerebral infarction, unspecified Referrals: RICKEY LOPEZ APRN (PCP/Family) Departure Forms: Customer Survey General Discharge Information Admission Note Spoke With: CESAR ALMAZAN,KARRI Documentation of Exam: Documentation of any treatments & extenuating circumstances including Concerns Regarding Discharge (functional status, medication knowledge or non-compliance, living conditions, etc.) that warrant an admission rather than observation: Patient requiring telemetry admission for cerebrovascular accident, aspirin therapy, neurology consultation, and medication management. Discharge at this time only minimally harmful. (MARITO KELLEY) PA/BOBBIN PAINTER Co-Sign Statement Statement: ED Attending supervision documentation- [X] I saw and evaluated the patient. I have also reviewed all the pertinent lab results and diagnostic results. I agree with the findings and the plan of care as documented in the PA's/BOBBIN PAINTER's documentation. [] I have reviewed the ED Record and agree with the PA's/BOBBIN PAINTER's documentation. [] Additions or exceptions (if any) to the PAs/BOBBIN PAINTER's note and plan are summarized below: [] (KRISTINE ALMAZAN,RAMIRO Sykes) Critical Care Note Critical Care Note Critical Care Time: 30-74 min (MARITO KELLEY)
--- NOTE | 2016-09-07 08:24 | NUR ---
PROVIDER AT BEDSIDE.
--- NOTE | 2016-09-07 08:57 | NUR ---
BLOOD WORK DRAWN AND SENT TO LAB: SST X 2, LAV, BLUE, [place], PINK AND GREEN TOP. PT ALERT TO SELF AND PLACE, BUT THINKS IT'S 1980. PT REDIRECTED. RESP THERAPY AT BEDSIDE FOR ABG AND XRAY AT BEDSIDE.
[2016-09-07 09:05] LABS: ABSOLUTE BASOPHIL COUNT 0 /CUMM (0.0-0.2); ABSOLUTE EOSINOPHIL COUNT 0.5 /CUMM (0.0-0.7); ABSOLUTE GRANULOCYTE CT 7.2 /CUMM (1.4-6.5); ABSOLUTE MONOCYTE COUNT 0.7 /CUMM (0.10-0.60); BASOPHIL % 0.3 % (0.0-2.0); EOSINOPHIL % 4.6 % (0-5); GRANULOCYTE % 69.5 % (42.2-75.2); HEMATOCRIT 39.8 % (42-52); MEAN CORPUSCULAR HGB 29.8 PG (27.0-31.0); MEAN CORPUSCULAR HGB CONC 34.3 G/DL (33.0-37.0); MEAN PLATELET VOLUME 9.8 FL (7.4-10.4); PLATELET COUNT 154 /CUMM (130-400); RBC DISTRIBUTION WIDTH 15.1 % (11.5-14.5); RED BLOOD CELL CT 4.57 /CUMM (4.70-6.10); WHITE BLOOD CELL COUNT 10.4 /CUMM (4.8-10.8)
--- NOTE | 2016-09-07 09:10 | CT SCAN REPORT ---
EXAMINATION: CT HEAD WITHOUT CONTRAST CLINICAL INFORMATION: Right arm weakness COMPARISON: None TECHNIQUE: Contiguous axial imaging was performed from the skull base to vertex without intravenous administration of contrast. DLP: 618.39 mGy-cm FINDINGS: There is no evidence of acute intra-axial or extra-axial hemorrhage. No acute mass effect or midline shift. Low-attenuation noted in the right caudate measuring approximately 1 x 1 cm (series 2 image 25-26). Hounsfield units are compatible with fluid attenuation. Subtle low-attenuation also noted in the region of the left caudate head. There is moderate periventricular and subcortical white matter low-attenuation compatible with small vessel ischemic disease. No gross evidence of acute loss of orozco-white differentiation. The mastoid air cells and visualized portions of the paranasal sinuses are well aerated. IMPRESSION: 1. Approximately 1 x 1 cm low-attenuation right caudate may represent old lacunar infarct. Hounsfield units are more in keeping with cystic change. No surrounding edema or mass effect. Comparison to older exams if available is recommended. Findings can also be further assessed with MRI. Subtle and small lacunar infarct left caudate head. 2. Moderate small vessel ischemia. 3. No acute intracranial pathology.
[2016-09-07] MEDS ORDERED: COLCHICINE0.6 M2 PO (09:16)
[2016-09-07] MEDS ORDERED: OMEPRAZOLE40 M1 PO (09:16)
[2016-09-07 09:19] LABS: PT 10.9 SEC (9.4-12.5); PTT 32 SEC (25-37)
--- NOTE | 2016-09-07 09:21 | RADIOLOGY REPORT ---
EXAMINATION: XR PORTABLE CHEST CLINICAL INFORMATION: Confusion. Rule out pneumonia. COMPARISON: Chest x-ray of 07/11/2016, 07/07/2016 and 06/16/2016. CT chest of 11/03/14. TECHNIQUE: Portable frontal view of the chest was obtained. FINDINGS: The lungs are mildly hypoexpanded. The lungs are clear. No pleural effusions or pneumothorax. Cardiomediastinal silhouette is stable an normal for technique. No acute osseous abnormality. The visualized upper abdomen is unremarkable. IMPRESSION: No acute pulmonary process. No radiographic evidence of pneumonia.
--- NOTE | 2016-09-07 10:19 | NUR ---
PT TO MRI NOW.
--- NOTE | 2016-09-07 11:04 | NUR ---
PT. RETURNED FROM MRI
--- NOTE | 2016-09-07 12:25 | MRI REPORT ---
MR BRAIN WITHOUT CONTRAST CLINICAL INFORMATION: Intermittent arm weakness and confusion. COMPARISON: Head CT performed earlier today. TECHNIQUE: MRI of the brain without contrast was obtained using routine sequences. FINDINGS: There is a small 7 mm acute infarct within the left caudate head on image 62 of series 3. There are no additional acute infarcts. There is a chronic lacunar infarct within the head of the right caudate as noted on the recent CT study. There is some chronic hemosiderin staining in this location. There are T2 signal changes throughout the supratentorial white matter, most likely chronic microangiopathy. There is no hydrocephalus, extra-axial surface collection, or herniation. The major flow voids at the skull base are preserved. There is no acute intracranial hemorrhage on the gradient recalled echo acquisition. The midline structures are normal. The cerebellar tonsils are normally positioned. The cerebellum and brainstem are normal. The craniocervical junction is normal. Osseous marrow signal intensity is homogenous. The visualized soft tissues are unremarkable. IMPRESSION: - There is a small 7 mm acute infarct within the left caudate head. - Moderate chronic microangiopathy and a chronic lacunar infarct within the right caudate head.
--- NOTE | 2016-09-07 13:06 | NUR ---
PT ABLE TO SWALLOW WATER WITHOUT DIFFICULTY. PT MEDICATED WITH ASPIRIN PER EMAR.
--- NOTE | 2016-09-07 14:06 | History & Physical ---
MANOLO LOPEZ MD 09/07/16 9395: General Information and HPI MD Statement: I have seen and personally examined MELISSA BAKER and documented this H&P. The patient is a 65 year old M who presented with a patient stated chief complaint of [weakness in the hand]. Source of Information: patient, family History of Present Illness: Patient is a 65-year-old male with a history of tobacco use, hypertension, dyslipidemia, gout, diabetes mellitus type 2 with HbA1c of 8.5%, and coronary artery disease with a recent acute coronary syndrome (anterior STEMI) s/p PCI on 06/16/2016 and renal insufficiency, chronic kidney disease stage II, who presented to the [facility] with increased confusion right sided arm weakness and numbness and also diffculty finding words to make sentenes. The patient stated that he has been doing fine from his recent discharge in June but now he started having these symptoms of slight paresthesias and numbness along with numbness and tingling in the right hand. He denies any other complaints.. He never lost any consciousness or any episode of seizures. He was in ER on 09/05/16 and presented with similar sx. He LEFT AMA on that visit. He denies any chest pain palpitations shortness of breath. No recent leg swelling when I saw the patient the patient was awake alert and oriented 3 .he was finding difficulty to make sentences to answer the questions. Allergies/Medications Allergies: Coded Allergies: No Known Allergies (06/16/16) Home Med list Allopurinol 100 MG TABLET 1 TAB PO PRN GOUT (Reported) Aspirin (Ecotrin*) 325 MG TABLET.DR 650 MG PO TID PERICARDITIS Atorvastatin Calcium 40 MG TABLET 1 TAB PO QPM CHOLESTEROL (Reported) Clopidogrel Bisulfate (Clopidogrel) 75 MG TABLET 1 TAB PO DAILY BLOOD THINNER (Reported) Colchicine 0.6 MG TABLET 1 TAB PO BID PRN PERICARDITIS (Reported) Lisinopril 10 MG TABLET 1 TAB PO DAILY BP (Reported) Metformin HCl 500 MG TABLET 1 TAB PO BID HYPERGLYCEMIA Omeprazole 40 MG CAPSULE.DR 1 CAP PO DAILY PRN GI (Reported) Past History Travel History Traveled to [place] past 21 day No Medical History Neurological: NONE EENT: hearing loss Cardiovascular: CAD, hypertension, hyperlipidemia, STEMI, (DOES TAKE THE MEDS) STENT PLACEMENT 06/16 PCI/KIRK to LAD and RCA; PCI/POBA ostial Dx 2. with Respiratory: COPD, emphysema Gastrointestinal: NONE Hepatic: NONE Renal: SAMRA Musculoskeletal: gout Psychiatric: NONE Endocrine: diabetes Blood Disorders: NONE Cancer(s): NONE [employer]/Reproductive: NONE History of MRSA: No History of VRE: No History of CDIFF: No Surgical History Surgical History: non-contributory Past Family/Social History Family History Relations & Conditions if any FATHER FH: colon cancer BROTHER FH: diabetes mellitus MOTHER Psychosocial History Where do you live? Home Who Do You Live With? self Services at Home: None Primary Language: Latvian Smoking Status: Former Smoker ETOH Use: denies use Illicit Drug Use: denies illicit drug use Living Will? no Functional Ability ADLs Independent: dressing, eating, toileting, bathing. Ambulation: independent IADLs Independent: shopping, housework, finances, food prep, telephone, transportation , medication admin. Review of Systems Review of Systems Constitutional: Reports: see HPI. EENTM: Reports: see HPI. Cardiovascular: Reports: see HPI. Respiratory: Reports: see HPI. GI: Denies: bloating, constipation, diarrhea, distention. Genitourinary: Denies: discharge, dysuria, frequency, hematuria. Musculoskeletal: Reports: see HPI. Denies: back pain, gout, joint pain. Skin: Denies: dryness, erythema, jaundice, lesions, lymphangitis. Neurological/Psychological: Reports: confusion, depressed, numbness, tingling. Exam & Diagnostic Data Last 24 Hrs of Vital Signs/I&O Vital Signs Date Time Temp Pulse Resp B/P B/P Pulse O2 O2 Flow FiO2 Mean Ox Delivery Rate 09/07 1444 96.4 76 15 161/77 97 Room Air Room Air 09/07 1310 96.4 81 15 157/81 98 Room Air Room Air 09/07 1122 85 15 140/72 09/07 1011 84 18 197/98 98 Room Air 09/07 0921 Room Air Room Air 09/07 0759 98.8 100 18 168/97 97 Room Air Intake & Output 09/07 1600 09/07 0800 09/07 0000 Intake Total 0 Output Total Balance 0 Intake, Oral 0 Patient 230 lb 230 lb Weight Weight Reported by Patient Reported by Patient Measurement Method Physical Exam General Appearance Alert, Cooperative, No Acute Distress, Mild Distress Skin No Rashes, No Breakdown Skin Temp/Moisture Exam: Warm/Dry HEENT Atraumatic, PERRLA Cardiovascular Normal S1, Normal S2 Lungs Clear to Auscultation, Normal Air Movement Abdomen Soft, No Tenderness Neurological Normal Gait, Sensation Intact, Cranial Nerves 3-12 NL, Reflexes 2+ Last 24 Hrs of Labs/Eriberto: Laboratory Tests 09/07/16 1128: Lactic Acid Cancelled 09/07/16 1021: Urine Opiates Screen < 100.00, Methadone Screen < 40, Barbiturate Screen < 60, Ur Phencyclidine Scrn < 6.00, Amphetamines Screen < 100, U Benzodiazepines Scrn < 85, Urine Cocaine Screen < 50, Urine Cannabis Screen < 5.00, Urine Color YEL, Urine Clarity CLEAR, Urine pH 6.5, Ur Specific [place] 1.020, Urine Protein 100 H, Urine Ketones NEG, Urine Nitrite NEG, Urine Bilirubin NEG, Urine Urobilinogen 1.0, Ur Leukocyte Esterase NEG, Ur Microscopic SEDIMENT EXAMINED, Urine RBC 15- 25 H, Urine WBC 1-3 H, Ur Epithelial Cells RARE, Urine Bacteria RARE H, Hyaline Casts RARE H, Urine Hemoglobin MOD H, Urine Glucose 500 H 09/07/16 0855: pH 7.43, pCO2 33 L, pO2 84, HCO3 21, ABG O2 Sat (Measured) 96.0, P-50 (Temp Corrected) N, Carboxyhemoglobin 1.2 L, O2 Concentration % .21, O2 Delivery Method RA, Phlebotomy Draw Site RIGHT RADIAL 09/07/16 0850: Anion Gap 13, Estimated GFR 36 L, BUN/Creatinine Ratio 17.9, Glucose 253 H, Hemoglobin A1c 12.1 H, Lactic Acid 1.6, Calcium 9.1, Total Bilirubin 0.7, AST 35, ALT 32, Alkaline Phosphatase 119, Ammonia 12, Troponin I 0.02, Total Protein 7.2, Albumin 3.8, Globulin 3.4, Albumin/Globulin Ratio 1.1, Cholesterol 209 H, PT 10.9, INR 1.04, APTT 32, CBC w Diff NO MAN DIFF REQ, RBC 4.57 L, MCV 87.0, MCH 29.8, RDW 15.1 H, MPV 9.8, Gran % 69.5, Lymphocytes % 18.7 L, Monocytes % 6.9, Eosinophils % 4.6, Basophils % 0.3, Absolute Granulocytes 7.2 H, Absolute Lymphocytes 2.0, Absolute Monocytes 0.7 H, Absolute Eosinophils 0.5, Absolute Basophils 0, PUBS MCHC 34.3, Serum Alcohol < 10.0, Acetone Level NEGATIVE Diagnostic Data EKG Results 1st degree block with diffused t wave invrsions. Assessment/Plan Assessment: Is a 65-year-old male with a past medical history of hypertension hyperlipidemia and cardiac catheterization on dual antiplatelet therapy who was recently discharged from [facility] for acute pericarditis comes in with persistent confusion and bilateral hand numbness and tingling more pronounced on the right side Vitals at the time of admission showed Blood pressure 161/77, pulse rate of 76, respiration rate of 15, temperature of 96.4, saturation of 97 percent on room air Labs shows WBC of 10.4, hemoglobin of 13.6, hematocrit of 39.8, chemistries shows sodium of 140, potassium of 4.2, creatinine of 1.9, Bun a 34, glucose of 253 EKG shows normal sinus rhythm MRI of the head shows There is a small 7 mm acute infarct within the left caudate head. - Moderate chronic microangiopathy and a chronic lacunar infarct within the right caudate head. Assessment 1. Acute ischemic stroke and feeling dual antiplatelet therapy out of the TPA window as the patient left AMA in the last week when he had increased worsening confusion. Apparently We cannot determine his last NEUROLOGHICAL EXAM.The patient has expressive aphasia and confusion. MRI showing bilateral caudate head infarcts causing his expressive aphasia and encephalopathy. Secondary to HTN,non compliant with his meds,or a thrmboembolic pheonomonen. 2. Post ME pericarditis currently with ongoing treatment with colchicine and high-dose aspirin 3. History of diabetes mellitus hemoglobin A1c of 12.7 4. History of hyperlipidemia 5. History of acute coronary syndrome status post pericarditis Plan Admit the patient to telemetry floor Neuro checks q4 Patient is already on dual antiplatelet therapy which we will continue The patient needs to be on high-dose statin atorvastatin 80 mg Permissive BP control -he is on ACEI 10 mg daily. We will Check serial troponins and EKG Carotid ultrasound,if stenosis present needs to call vascular consult. Last ultrasound transthoracic echocardiogram was in June 2016-will defer to card/neurology staff if needed to be repeated. I already call neurology, Dr. Jauregui's on-call he will come and evaluate the patient Novolog SS a. Patient needs to be discharegd on Insulin at time of disposition and will start on Levemir 10 units I spoke to Dr. Ghotra and consulted with him regarding the continuation or discontinuation of the colchicine and aspirin. He recommended that we should discontinue high-dose aspirin and continue with aspirin 325 mg daily but should continue with 0.6 mg twice a day of colchicine which should be continued for 6 months. He will formally see the patient the morning. PT/OT evluation for hands weakness Patient passed swallow eval at bedside but needs formal swallow evlauation. DVT prophylaxis at all times Patient is full code As Ranked By This Provider Problem List: 1. Stroke Qualifiers CVA mechanism: unspecified Qualified Code: I63.9 - Cerebral infarction, unspecified 2. Hyperglycemia Core Measures/Miscellaneous Acute Coronary Syndrome ACS Diagnosis: No Cerebrovascular Accident CVA/TIA Diagnosis: Yes NIH Stroke Scale: Total 0 Date Last Known Well: 09/07/16 Time Last Known Well: 0900 Neurological S/S of CVA: Acute Confusion, Dizziness Symptom Start Date: 09/07/16 Symptom Start Time: 0900 Reason tPA not ordered Medical Contraindication Bedside Swallow Eval Done: Yes Result of Evaluation: Pass Days in Hospital: 3 DAYS Antithrombotic: Yes AFIB: No Aflutter: No Anticoagulant: No Evidence of Atherosclerosis: Yes LDL Assessed Within 24 Hours: Yes Currently on Statin: Yes Rehab Needs Assessed: Medical Eval for Rehab PT Consult Ordered: No Congestive Heart Failure CHF Diagnosis: No Venous Thromboembolism VTE Risk Factors: Acute medical illness, Age > 40 No [facility] V[facility] prophylaxis d/t: VTE low risk, No contraindications No VTE Pharm Prophylaxis d/t: VTE low risk, No contraindications VTE Diagnosis: No VTE Type: NONE VTE Confirmed by (Test): NONE Severe Sepsis Severe Sepsis Present: No Septic Shock Septic Shock Present: No Miscellaneous Documentation Attending Case Discussed With: RAFAELA PANIAGUA MD Primary Care Physician: RICKEY LOPEZ APRN Patient sees these Specialists NONE Level of Patient Care: Telemetry RAFAELA PANIAGUA MD 09/07/16 1606: Attending Review Statement Attending Statement Attending Statement: examined this patient, discuss w/resident/PA/SENIOR EXECUTIVE ASSISTANT, agreed w/resident/PA/SENIOR EXECUTIVE ASSISTANT, reviewed EMR data (avail), discussed with nursing, reviewed images, amended to note Attending Assessment/Plan: The patient is a 65 yo male with h/o HTN, DM2, HL, gout, CAD (s/p anterior wall ME 06/16/16 and stenting), and CKD2 who presented in the ED today with/o numbness and paresthesias in his right arm that have been intermitted over several days. He was in ED 2 days ago stating right leg gave out on him and was having cardiology evaluation. He had signed out AMA. At present he notes some difficulty finding words. Denies any LE weakness, chest pain or dyspnea. He did state that he had not taken his Atorvastatin and ASA for the last several days. Physical Exam: VS: T 96.4, P 76, R 18, BP 161/77, PO 97% RA HEENT: eyes- PERRLA, EOMI gutierrez- sl dry mucosa w/o lesions Neck: no bruits or JVD Chest: clear Cor: RRR, nl S1, S2 w/o murm Abd: BS+, soft, NT, - masses or HSM Ext: no edema, pulses 2+ Neuro: ?subjective weakness RUE (able to squeeze and move), ? diminished sensory RUE, motor/sensory LE normal, CN 2-12 intact, DTR's 2+ and symmetric, gait not tested Labs/Test- as above Impression/Plan: #Acute Right Caudate CVA- on MRI. Patient with some vague symptoms and appears to have some word finding difficulties. C/O subjective RUE weakness. Plan: Admit to telemetry, q4h neuro checks. ASA/Atorvastatin Neurology consult- Dr. Jauregui. PT/OT/Speech Therapy Carotid US. #CAD- s/p recent ME and stents- post ME pericarditis. No chest pain at present. Plan: Monitor on telemetry. Dr. Ghotra to see. Continue Colchicine as per Dr. Ghotra. #CKD- Creatinine as above. Near baseline. Plan: Will monitor. Avoid nephrotoxins. #DM2- poorly controlled with Hgb A1C 12.7. Plan: Agree with Levemir and coverage. Monitor sugars. #Hyperlipidemia- had stopped statin (not clear if he felt weakness from this). Plan: Will treat with Atorvastatin at present due to acute CVA.
--- NOTE | 2016-09-07 14:45 | NUR ---
FAIZON AT BEDSIDE FOR EVAL.
--- NOTE | 2016-09-07 14:50 | NUR ---
PT REPORTS HIS RIGHT ARM/HAND FEELS "." JULIA AND THIS RN AT BEDSIDE, PT ABLE TO MOVE HAND, ARM AND FINGERS WITHOUT DIFFICULTY. EQUAL HAND GRASPS.
--- NOTE | 2016-09-07 14:58 | NUR ---
FOOD TRAY ORDERED.
--- NOTE | 2016-09-07 15:17 | NUR ---
PT CARE ASSUMED BY THIS RN AT THIS TIME. PT ALERT AND SITTING UP ON STRETCHER, PT UPDATED ON PLAN OF CARE AND PT VERBALIZES UNDERSTANDING THAT HE WILL BE ADMITTED FOR FURTHER MONITORING OF STROKE SYMPTOMS. OFFERS NO COMPLAINTS AT THIS TIME. PROVIDED URINAL AT THIS TIME.
--- NOTE | 2016-09-07 15:23 | Admission Certification ---
Admission Certification Certification Statement - As attending physician, I certify that at the time of - admission, based on clinical presentation, severity of - symptoms, need for further diagnostic testing and - therapeutic interventions, and risk of adverse outcomes - without in-hospital treatment, in my clinical assessment, - this patient requires an acute hospital stay for a minimum - of two nights or longer. I have also considered psychsocial - factors such as support system, advanced age, financial - issues, cognitive issues, and failed out-patient treatments, - past re-admission history, safety of patient, and lack of - compliance as applicable. Specific rationale supporting this admission is: The patient presents with right upper extremity weakness and some expressive aphasia with MRI showing acute CVA in right caudate. Needs admission for telemetry, neuro checks, neuro consult, statin/ASA, PT/OT/speech therapy.
--- NOTE | 2016-09-07 15:47 | NUR ---
HOUSE STAFF CONTINUES AT BEDSIDE.
--- NOTE | 2016-09-07 16:46 | ULTRASOUND REPORT ---
EXAMINATION: DUPLEX BILATERAL CAROTID ULTRASOUND CLINICAL INFORMATION: Acute stroke COMPARISON: None. TECHNIQUE: Duplex bilateral carotid US was performed using real-time ultrasound and Doppler techniques (integrating B-mode 2D vascular images, Doppler spectral analysis and color flow Doppler imaging). These techniques were utilized to interrogate the extracranial carotid and vertebral arteries bilaterally. The degree of stenosis is based off criteria similar to NASCET. FINDINGS: 1. On the right: Plaque is present at the carotid bifurcation extending into the right ICA. However, velocities are normal and do not suggest a stenosis of greater than 50% diameter reduction in the right ICA. The vertebral artery is patent demonstrating antegrade flow. The right external carotid artery shows no significant stenosis. 2. On the left: There is a hemodynamically significant stenosis correlating to 50-79% diameter reduction of the proximal internal carotid artery. A moderate amount of hyperechoic plaque is noted within the proximal internal and external carotid arteries. The peak systolic and diastolic velocities as measured within the proximal internal carotid artery equals 239 and 99 cm/s respectively. The vertebral artery is patent demonstrating antegrade flow. The left external carotid artery shows no significant stenosis. IMPRESSION: Hemodynamically significant stenoses consistent with a 50-79% diameter reduction of the proximal left internal carotid artery. A hemodynamically significant stenosis of greater than 50% is not present on the right.
--- NOTE | 2016-09-07 16:56 | NUR ---
Emergency Dept UC Admit Note: To be admitted to [facility] by DR PANIAGUA with TIA as the diagnosis, to TELE location. Nursing Intrusion Analyst and admitting notified 09/07/16 at 1329 PT WILL GO TO ROOM 171-1
--- NOTE | 2016-09-07 18:09 | NUR ---
RN UNABLE TO TAKE REPORT AT THIS TIME.
--- NOTE | 2016-09-07 18:33 | NUR ---
PT PROVIDED DINNER TRAY, FBG 205 AT THIS TIME, COVERED WITH NOVOLOG 4UNITS PER EMAR.
[2016-09-07 19:40] VITALS: BP 180/98
--- NOTE | 2016-09-07 19:44 | Cons- Neurology ---
General Information and HPI Consulting Request Date of Consult: 09/07/16 Requested By: RAFAELA PANIAGUA MD Reason for Consult: Stroke Source of Information: patient, old records Exam Limitations: not alert/orientated, clinical condition, poor historian History of Present Illness: This is a 65 year old right handed man with a history of previous caudate stroke , who presents to the hospital for new onset right sided weakness. He has multiple cardiovascular risk factors including CAD and a previous [place]. He cannot provide me much more information when I see him, and seem somewhat discombobulated. According to previous records has a history of tobacco use, hypertension, dyslipidemia, gout, diabetes mellitus type 2 with HbA1c of 8.5%, and coronary artery disease with a recent acute coronary syndrome (anterior STEMI) s/p PCI on 06/16/2016 and renal insufficiency, chronic kidney disease stage II. The patient stated that he has been doing fine from his recent discharge in June but now he is now having these new symptoms with numbness and tingling in the right hand. The patient was also in the ER 1 week back and left AMA. At that time he had similar presetataion and and increased confusioin. Allergies/Medications Allergies: Coded Allergies: No Known Allergies (06/16/16) Home Med List: Allopurinol 100 MG TABLET 1 TAB PO PRN GOUT (Reported) Aspirin (Ecotrin*) 325 MG TABLET. 650 MG PO TID PERICARDITIS Atorvastatin Calcium 40 MG TABLET 1 TAB PO QPM CHOLESTEROL (Reported) Clopidogrel Bisulfate (Clopidogrel) 75 MG TABLET 1 TAB PO DAILY BLOOD THINNER (Reported) Colchicine 0.6 MG TABLET 1 TAB PO BID PRN PERICARDITIS (Reported) Lisinopril 10 MG TABLET 1 TAB PO DAILY BP (Reported) Metformin HCl 500 MG TABLET 1 TAB PO BID HYPERGLYCEMIA Omeprazole 40 MG CAPSULE.DR 1 CAP PO DAILY PRN GI (Reported) Current Medications: Current Medications Sig/Jabier Start time Last Medication Dose Route Stop Time Status Admin Acetaminophen 650 MG Q6P PRN 09/07 1415 AC PO Allopurinol 100 MG DAILY 09/08 1000 AC PO Aspirin 0 .STK-MED ONE 09/07 1309 DC PO Aspirin 325 MG ONCE ONE 09/07 1230 DC 09/07 PO 09/07 1231 1306 Aspirin Buffered 325 MG DAILY 09/08 1000 AC PO Aspirin Buffered 650 MG BID 09/07 2200 CAN PO Atorvastatin Calcium 40 MG QPM 09/07 2200 CAN PO Atorvastatin Calcium 80 MG 1700 09/07 1700 AC PO Clopidogrel Bisulfate 75 MG DAILY 09/08 1000 AC PO Colchicine 600 MCG BID 09/07 2200 AC PO Heparin Sodium 5,000 UNIT Q8 09/07 2200 AC (Porcine) SC Hydromorphone HCl 1 MG Q6P PRN 09/07 1415 AC IV Ibuprofen 600 MG Q6P PRN 09/07 1415 DC PO Insulin Aspart 0 TIDAC 09/07 1700 AC 09/07 SC 1833 Insulin Detemir 10 UNITS BID 09/07 2200 AC SC Omeprazole 40 MG DAILY AC 09/08 0700 AC PO Review of Systems Review of Systems: Negative to the ten point complete review of systems. Past History Travel History Traveled to [place] past 21 day No Medical History Neurological: NONE EENT: hearing loss Cardiovascular: CAD, hypertension, hyperlipidemia, STEMI, (DOES TAKE THE MEDS) STENT PLACEMENT 06/16 PCI/KIRK to LAD and RCA; PCI/POBA ostial Dx 2. 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 Home Who Do You Live With? self Services at Home: None Primary Language: Bhutanese Smoking Status: Former Smoker ETOH Use: denies use Illicit Drug Use: denies illicit drug use Living Will? no Functional Ability ADLs Independent: dressing, eating, toileting, bathing. Ambulation: independent IADLs Independent: shopping, housework, finances, food prep, telephone, transportation , medication admin. Exam & Diagnostic Data Vital Signs and I&O Vital Signs Date Time Temp Pulse Resp B/P B/P Pulse O2 O2 Flow FiO2 Mean Ox Delivery Rate 09/07 1835 97.0 79 18 137/92 98 Room Air Room Air 09/07 1640 96.7 79 18 147/88 98 Room Air Room Air 09/07 1444 96.4 76 15 161/77 97 Room Air Room Air 09/07 1310 96.4 81 15 157/81 98 Room Air Room Air 09/07 1122 85 15 140/72 09/07 1011 84 18 197/98 98 Room Air 09/07 0921 Room Air Room Air 09/07 0759 98.8 100 18 168/97 97 Room Air Intake & Output 09/07 1600 09/07 0800 09/07 0000 Intake Total 0 Output Total Balance 0 Intake, Oral 0 Patient 230 lb 230 lb Weight Weight Reported by Patient Reported by Patient Measurement Method Physical Exam: Alert but confused, not oriented to time or place. Not very coherent. Fluent but has trouble with comprehension. S1 and S2 are normal. RRR. Attention and focus reduced. EOMI, RIN, no nystagmus, face is symmetric, not dysarthric, tongue midline, TPZ and SCM strong. Hearing within normal limits. Visual pino grossly intact. R arm 3/5 proximal weakness, left arm 4/5 proximal weakness but hard to assess as does not give full resistance. Legs seem stronger. Reflexes hyperreactive by symmetric with downgoing toes. Does not comprehend FNF. Gait deferred. Last 48 Hours of Lab Results: Laboratory Tests 09/07 09/07 09/07 1820 1128 1021 Chemistry Lactic Acid Cancelled Troponin I (<0.11 ng/ml) 0.02 Toxicology Urine Opiates Screen (>2000 NG/ML) < 100.00 Methadone Screen (>300 NG/ML) < 40 Barbiturate Screen (>200 NG/ML) < 60 Ur Phencyclidine Scrn (>25 NG/ML) < 6.00 Amphetamines Screen (>1000 NG/ML) < 100 U Benzodiazepines Scrn (>200 NG/ML) < 85 Urine Cocaine Screen (>300 NG/ML) < 50 Urine Cannabis Screen (>50 NG/ML) < 5.00 Urines Urine Color (YEL,AMB,STR) YEL Urine Clarity (CLEAR) CLEAR Urine pH (5.0 - 8.0) 6.5 Ur Specific [place] (1.001 - 1.035) 1.020 Urine Protein (NEG,<30 MG/DL) 100 H Urine Ketones (NEG) NEG Urine Nitrite (NEG) NEG Urine Bilirubin (NEG) NEG Urine Urobilinogen (0.1 - 1.0 EU/dl) 1.0 Ur Leukocyte Esterase (NEG) NEG Ur Microscopic SEDIMENT EXAMINED Urine RBC (0 - 5 /HPF) 15-25 H Urine WBC (0 - 2 /HPF) 1-3 H Ur Epithelial Cells (NONE,FEW) RARE Urine Bacteria (NEG/NONE) RARE H Hyaline Casts (0/LPF) RARE H Urine Hemoglobin (NEG) MOD H Urine Glucose (N MG/DL) 500 H 18 09/07 0855 0850 Blood Gas pH (7.35 - 7.45 PH) 7.43 pCO2 (35 - 45 TORR) 33 L pO2 (80 - 100 TORR) 84 HCO3 (21 - 28 MEQ/L) 21 ABG O2 Sat (Measured) (>96.0 %) 96.0 P-50 (Temp Corrected) N Carboxyhemoglobin (1.5 - 5.0 %) 1.2 L O2 Concentration % .21 O2 Delivery Method RA Chemistry Sodium (137 - 145 mmol/L) 140 Potassium (3.5 - 5.1 mmol/L) 4.2 Chloride (98 - 107 mmol/L) 104 Carbon Dioxide (22 - 30 mmol/L) 23 Anion Gap (5 - 16) 13 BUN (9 - 20 mg/dL) 34 H Creatinine (0.7 - 1.2 mg/dL) 1.9 H Estimated GFR (>60 ml/min) 36 L BUN/Creatinine Ratio (7 - 25 %) 17.9 Glucose (65 - 99 mg/dL) 253 H Hemoglobin A1c (4.2 - 5.8 %) 12.1 H Lactic Acid (0.7 - 2.1 mmol/L) 1.6 Calcium (8.4 - 10.2 mg/dL) 9.1 Total Bilirubin (0.2 - 1.3 mg/dL) 0.7 AST (17 - 59 U/L) 35 ALT (21 - 72 U/L) 32 Alkaline Phosphatase (< 127 U/L) 119 Ammonia (9 - 30 umol/L) 12 Troponin I (<0.11 ng/ml) 0.02 Total Protein (6.3 - 8.2 g/dL) 7.2 Albumin (3.5 - 5.0 g/dL) 3.8 Globulin (1.9 - 4.2 gm/dL) 3.4 Albumin/Globulin Ratio (1.1 - 2.2 %) 1.1 Triglycerides (<150 mg/dL) 207 H Cholesterol (< 200 MG/DL) 209 H LDL Cholesterol, Calc (65 - 129 mg/dL) 132 H HDL Cholesterol (40 - 60 mg/dL) 35 L Cholesterol/HDL Ratio (0.00 - 4.88 %) 5.9 H Coagulation PT (9.4 - 12.5 SEC) 10.9 INR (0.90 - 1.17) 1.04 APTT (25 - 37 SEC) 32 Hematology CBC w Diff NO MAN DIFF REQ WBC (4.8 - 10.8 /CUMM) 10.4 RBC (4.70 - 6.10 /CUMM) 4.57 L Hgb (14.0 - 18.0 G/DL) 13.6 L Hct (42 - 52 %) 39.8 L MCV (80.0 - 94.0 FL) 87.0 MCH (27.0 - 31.0 PG) 29.8 RDW (11.5 - 14.5 %) 15.1 H Plt Count (130 - 400 /CUMM) 154 MPV (7.4 - 10.4 FL) 9.8 Gran % (42.2 - 75.2 %) 69.5 Lymphocytes % (20.5 - 51.1 %) 18.7 L Monocytes % (1.7 - 9.3 %) 6.9 Eosinophils % (0 - 5 %) 4.6 Basophils % (0.0 - 2.0 %) 0.3 Absolute Granulocytes (1.4 - 6.5 /CUMM) 7.2 H Absolute Lymphocytes (1.2 - 3.4 /CUMM) 2.0 Absolute Monocytes (0.10 - 0.60 /CUMM) 0.7 H Absolute Eosinophils (0.0 - 0.7 /CUMM) 0.5 Absolute Basophils (0.0 - 0.2 /CUMM) 0 PUBS MCHC (33.0 - 37.0 G/DL) 34.3 Miscellaneous Phlebotomy Draw Site RIGHT RADIAL Toxicology Serum Alcohol (<10 MG/DL) < 10.0 Acetone Level (NEGATIVE) NEGATIVE Imaging/Other Studies: MRI brain: IMPRESSION: - There is a small 7 mm acute infarct within the left caudate head. - Moderate chronic microangiopathy and a chronic lacunar infarct within the right caudate head. Carotid Duplex: FINDINGS: 1. On the right: Plaque is present at the carotid bifurcation extending into the right ICA. However, velocities are normal and do not suggest a stenosis of greater than 50% diameter reduction in the right ICA. The vertebral artery is patent demonstrating antegrade flow. The right external carotid artery shows no significant stenosis. 2. On the left: There is a hemodynamically significant stenosis correlating to 50-79% diameter reduction of the proximal internal carotid artery. A moderate amount of hyperechoic plaque is noted within the proximal internal and external carotid arteries. The peak systolic and diastolic velocities as measured within the proximal internal carotid artery equals 239 and 99 cm/s respectively. The vertebral artery is patent demonstrating antegrade flow. The left external carotid artery shows no significant stenosis. Assessment/Plan Assessment: 65 year old man with bilateral caudate head infarcts (currently a new left sided infarct) which possibly explains his confusional state and encephalopathy. Infarctions within the caudate head could present like this, especially when bilateral (old and new). Further, there is stenosis of the ICA on the left that warrants a vascular surgery evaluation. While, it is possible that this is a cause of a smal arterioembolic embolus, it is more likely that the stroke was related to small vessel disease and hypertension (lacunar infarction). Recommendations: 1. Agree with Plavix and Aspirin, and Atorvastatin, but the patient's more significant problem is that admittingly he does not adhere to taking these medications. 2. Check Echo. 3. Arrange for some supervision at home to ensure that the patient takes his meds (eg visiting nurse). 4. PT/OT 5. NPO till swallow evaluation. 6. Telemetry. 7. Aggresive BP control. Start with an ACEI. YC Consult Acknowledgment - Thank you for your consult request.
[2016-09-07 23:49] VITALS: BP 186/88
--- NOTE | 2016-09-08 07:33 | PN- Housestaff ---
See Addendum Subjective Follow-up For: CVA Coronary artery disease Hyperlipidemia DM CKD Tele-Events Since Last Visit: SR, HR 75-92. 1st degree heart block. Subjective: Afebrile, blood pressure is improving, no acute overnight events. Patient denies any current active complaints. Patient is laying on bed looks relaxed and comfortable. Review of Systems Constitutional: Reports: no symptoms. Objective Last 24 Hrs of Vital Signs/I&O Vital Signs Date Time Temp Pulse Resp B/P B/P Pulse O2 O2 Flow FiO2 Mean Ox Delivery Rate 09/08 1346 Room Air Room Air 09/08 1113 80 168/92 09/08 0830 97.6 80 16 152/96 95 Room Air 09/07 2349 98.9 89 18 186/88 96 Room Air 09/07 1940 98.3 80 18 180/98 97 Room Air 09/07 1835 97.0 79 18 137/92 98 Room Air Room Air 09/07 1640 96.7 79 18 147/88 98 Room Air Room Air 09/07 1444 96.4 76 15 161/77 97 Room Air Room Air Intake & Output 09/08 1600 09/08 0800 09/08 0000 Intake Total 100 Output Total 700 600 Balance -600 -600 Intake, Oral 100 Output, Urine 700 600 Patient 83.915 kg Weight Weight Standing Scale Measurement Method Physical Exam General Appearance: Alert, Oriented X3, Cooperative, No Acute Distress HEENT: Atraumatic, PERRLA, EOMI, Mucous Membr. moist/pink Cardiovascular: Regular Rate, Normal S1, Normal S2, No Murmurs Lungs: Clear to Auscultation, Normal Air Movement Abdomen: Normal Bowel Sounds, Soft, No Tenderness Neurological: Normal Speech, UE is 4/5 and LE is 5/5. Extremities: No Clubbing, No Cyanosis, No Edema Assessment/Plan Assessment: #Acute Right Caudate CVA Head MRI and CT shows bilateral caudate head infarcts (currently a new 7 mm acute infarct within the left caudate head) and Moderate small vessel ischemia. patinet have some word finding difficulties. C/O subjective RUE weakness. Carotid ultrasound showed bilateral stenosis of 50%-79%. Patient passed swallowing evaluation. * Continue Plavix and Aspirin * Continue Atorvastatin * Echo pending * PT/OT * Controlled blood pressure with lisinopril * I spoke with the vascular surgery, they recommended optimizing patient for possible endarterectomy next week. Also they will do carotid scan. 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 No chest pain at present. * we will consult bilingual instructor Dr. Ghotra * Continue Colchicine. * Continue aspirin * Continue Plavix #CKD * At presentation was 1.9 went down today to 1.6 * Avoid nephrotoxins. * Monitor renal function #DM2 Poorly controlled with Hgb A1C 12.7 * Continue Levemir * Monitor blood glucose. #Hypertension * Continue lisinopril #Hyperlipidemia Patient had stopped statin, he said it made him feel weak before, we will explained to the patient the importance of statin. * Continue atorvastatin. Heart healthy diet DVT prophylaxis heparin subcutaneous Full code Problem List: 1. Stroke 2. Diabetes 3. Pericarditis Pain Ratin Pain Location: NA Pain Goal: Remain pain free Pain Plan: See A&P Tomorrow's Labs & Rationales: BEP to follow renal function
[2016-09-08 07:52] LABS: ABSOLUTE BASOPHIL COUNT 0.1 /CUMM (0.0-0.2); ABSOLUTE EOSINOPHIL COUNT 0.6 /CUMM (0.0-0.7); ABSOLUTE GRANULOCYTE CT 6.7 /CUMM (1.4-6.5); ABSOLUTE LYMPH COUNT 2.4 /CUMM (1.2-3.4); ABSOLUTE MONOCYTE COUNT 0.8 /CUMM (0.10-0.60); BASOPHIL % 0.5 % (0.0-2.0); EOSINOPHIL % 6.1 % (0-5); GRANULOCYTE % 62.9 % (42.2-75.2); MEAN CORPUSCULAR HGB 29.9 PG (27.0-31.0); MEAN CORPUSCULAR HGB CONC 33.7 G/DL (33.0-37.0); MEAN CORPUSCULAR VOLUME 88.6 FL (80.0-94.0); MEAN PLATELET VOLUME 10.2 FL (7.4-10.4); PLATELET COUNT 169 /CUMM (130-400); RBC DISTRIBUTION WIDTH 15.8 % (11.5-14.5); RED BLOOD CELL CT 4.97 /CUMM (4.70-6.10); WHITE BLOOD CELL COUNT 10.6 /CUMM (4.8-10.8)
[2016-09-08 08:30] VITALS: BP 152/96
[2016-09-08 16:13] VITALS: BP 133/68
--- NOTE | 2016-09-08 17:56 | Cons- Vascular Surgery ---
General Information and HPI Consulting Request Date of Consult: 09/08/16 Requested By: RAFAELA PANIAGUA MD Reason for Consult: New CVA, Carotid Stenosis Source of Information: patient, old records Exam Limitations: unable to give history, confusion History of Present Illness: This 65-year-old male has a history of tobacco use and previous lacunar stroke. He presented days ago with complaints of right-sided weakness and difficulty with speech. At that time he left AGAINST MEDICAL ADVICE. He returns today for evaluation due to recurrent worsening right-sided weakness and difficulty with speaking. A carotid ultrasound was obtained which demonstrated a 50-79% stenosis of the left carotid artery. I have asked to evaluate for intervention. According to the records, the patient suffered a myocardial infarction with stent placement in May of this year. Allergies/Medications Allergies: Coded Allergies: No Known Allergies (06/16/16) Home Med List: Allopurinol 100 MG TABLET 1 TAB PO PRN GOUT (Reported) Aspirin (Ecotrin*) 325 MG TABLET.DR 650 MG PO TID PERICARDITIS Atorvastatin Calcium 40 MG TABLET 1 TAB PO QPM CHOLESTEROL (Reported) Clopidogrel Bisulfate (Clopidogrel) 75 MG TABLET 1 TAB PO DAILY BLOOD THINNER (Reported) Colchicine 0.6 MG TABLET 1 TAB PO BID PRN PERICARDITIS (Reported) Lisinopril 10 MG TABLET 1 TAB PO DAILY BP (Reported) Metformin HCl 500 MG TABLET 1 TAB PO BID HYPERGLYCEMIA Omeprazole 40 MG CAPSULE.DR 1 CAP PO DAILY PRN GI (Reported) Current Medications: Current Medications Sig/Jabier Start time Last Medication Dose Route Stop Time Status Admin Acetaminophen 650 MG Q6P PRN 09/07 1415 AC PO Allopurinol 100 MG DAILY 09/08 1000 AC 09/08 PO 1113 Aspirin Buffered 325 MG DAILY 09/08 1000 AC 09/08 PO 1114 Atorvastatin Calcium 80 MG 1700 09/07 1700 AC 09/08 PO 1114 Clopidogrel Bisulfate 75 MG DAILY 09/08 1000 AC 09/08 PO 1114 Colchicine 600 MCG BID 09/07 2200 AC 09/08 PO 1114 Heparin Sodium 5,000 UNIT Q8 09/07 2200 AC 09/08 (Porcine) SC 1654 Hydromorphone HCl 1 MG Q6P PRN 09/07 1415 AC 09/08 IV 0158 Insulin Aspart 0 TIDAC 09/07 1700 AC 09/08 SC 1255 Insulin Detemir 10 UNITS BID 09/07 2200 AC 09/08 SC 1112 Lisinopril 10 MG DAILY 09/08 1000 AC 09/08 PO 1113 Omeprazole 40 MG DAILY AC 09/08 0700 AC 09/08 PO 0914 Patient Medication 1 ED .STK-MED ONE 09/08 1403 [facility] Teaching ED 09/08 1404 Past History Medical History Neurological: NONE EENT: hearing loss Cardiovascular: CAD, hypertension, hyperlipidemia, STEMI, (DOES TAKE THE MEDS) STENT PLACEMENT 06/16 PCI/KIRK to LAD and RCA; PCI/POBA ostial Dx 2. 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 Home Who Do You Live With? self Services at Home: None Primary Language: Taiwanese Smoking Status: Former Smoker ETOH Use: denies use Illicit Drug Use: denies illicit drug use Living Will? no Functional Ability ADLs Independent: dressing, eating, toileting, bathing. Ambulation: independent IADLs Independent: shopping, housework, finances, food prep, telephone, transportation , medication admin. Review of Systems Review of Systems Neurological/Psychological: Reports: cognitive dysfunction, confusion, unable to move upper ext, weakness. Exam & Diagnostic Data Vital Signs and I&O Vital Signs Date Time Temp Pulse Resp B/P B/P Pulse O2 O2 Flow FiO2 Mean Ox Delivery Rate 09/08 1613 98.7 85 16 133/68 95 Room Air 09/08 1346 Room Air Room Air 09/08 1113 80 168/92 09/08 0830 97.6 80 16 152/96 95 Room Air 09/07 2349 98.9 89 18 186/88 96 Room Air 09/07 1940 98.3 80 18 180/98 97 Room Air 09/07 1835 97.0 79 18 137/92 98 Room Air Room Air Intake & Output 09/08 1600 09/08 0800 09/08 0000 09/07 1600 09/07 0800 09/07 0000 Intake Total 600 100 0 Output Total 300 700 600 Balance 300 -600 -600 0 Intake, Oral 600 100 0 Number 1 Bowel Movements Output, Urine 300 700 600 Patient 83.915 kg 104.326 kg 104.326 kg Weight Weight Standing Scale Reported by Patient Reported by Patient Measurement Method Physical Exam General Appearance: well developed/nourished, no apparent distress, lethargic Head: atraumatic, normal appearance Respiratory: no respiratory distress, quiet respiration Cardiovascular: regular rate/rhythm Peripheral Pulses: 2+ femoral (R), 2+ femoral (L), 0 tibialis posterior (R), 0 tibialis posterior ( L), 0 dorsalis pedis (R), 0 dorsalis pedis (L) Gastrointestinal: soft, non-tender Rectal: deferred Extremities: limited range of motion Neurologic/Psych: aphasia, motor weakness (right upper extremity severe w) Last 24 Hours of Labs: Laboratory Tests 09/08 09/07 09/07 0600 2345 1820 Chemistry Sodium (137 - 145 mmol/L) 140 Potassium (3.5 - 5.1 mmol/L) 4.2 Chloride (98 - 107 mmol/L) 105 Carbon Dioxide (22 - 30 mmol/L) 23 Anion Gap (5 - 16) 12 BUN (9 - 20 mg/dL) 28 H Creatinine (0.7 - 1.2 mg/dL) 1.6 H Estimated GFR (>60 ml/min) 43 L BUN/Creatinine Ratio (7 - 25 %) 17.5 Troponin I (<0.11 ng/ml) 0.02 0.02 Hematology CBC w Diff NO MAN DIFF REQ WBC (4.8 - 10.8 /CUMM) 10.6 RBC (4.70 - 6.10 /CUMM) 4.97 Hgb (14.0 - 18.0 G/DL) 14.9 Hct (42 - 52 %) 44.0 MCV (80.0 - 94.0 FL) 88.6 MCH (27.0 - 31.0 PG) 29.9 RDW (11.5 - 14.5 %) 15.8 H Plt Count (130 - 400 /CUMM) 169 MPV (7.4 - 10.4 FL) 10.2 Gran % (42.2 - 75.2 %) 62.9 Lymphocytes % (20.5 - 51.1 %) 22.5 Monocytes % (1.7 - 9.3 %) 8.0 Eosinophils % (0 - 5 %) 6.1 H Basophils % (0.0 - 2.0 %) 0.5 Absolute Granulocytes (1.4 - 6.5 /CUMM) 6.7 H Absolute Lymphocytes (1.2 - 3.4 /CUMM) 2.4 Absolute Monocytes (0.10 - 0.60 /CUMM) 0.8 H Absolute Eosinophils (0.0 - 0.7 /CUMM) 0.6 Absolute Basophils (0.0 - 0.2 /CUMM) 0.1 PUBS MCHC (33.0 - 37.0 G/DL) 33.7 Imaging Results: Left-sided 50-79% stenosis of carotid artery by duplex. Velocities of 239/99 Assessment/Plan Assessment/Plan 65-year-old male with a history of vascular disease including a recent MD in May of this year. He presents with a TIA approximately 3 days ago with right-sided weakness and left-sided A fascia. He re-presents yesterday with worsening symptoms. On my exam, he has minimal movement of the right upper extremity it is quite weak. He has difficulty expressing himself as well with limited speech. MRI demonstrates a small caudate infarct, acute. Carotid ultrasound demonstrates a 50-79% hemodynamically significant stenosis in the left internal carotid artery. Patient will likely require intervention given his symptomatic carotid lesion. I am concerned regarding his recent MD as to his fitness for open surgery. It would be helpful to have a cardiology evaluation, or input from medicine regarding his risk stratification for intervention. Alternatively, he would be a reasonable candidate for a carotid stent placement. I have discussed with the patient intervening Sunday morning, if he is suitable from a medical perspective. Please keep nothing by mouth Sunday evening, and make medical recommendations as necessary regarding surgical risk management. Agree with dual antiplatelet therapy at this time. Problem List: 1. Stroke Consult Acknowledgment - Thank you for your consult request. Attending MD Review Statement Attending Statement Attending MD Statement: examined this patient
--- NOTE | 2016-09-08 17:57 | Event Note ---
Event Note Event Note: Dr. Sera Dukes reportedly advised by the vascular surgeon Dr. Moore to start the patient on heparin drip. However this is not documented in Dr. Moore's assessment/plan. As such we will hold onto starting the heparin drip until it is confirmed by Dr. Moore.
[2016-09-08 23:00] VITALS: BP 107/60
--- NOTE | 2016-09-09 08:27 | PN- Housestaff ---
See Addendum Subjective Follow-up For: CVA Subjective: Seen and examined at bedside. She is awake and alert and oriented to place and person. He denies any new focal neurological deficit, chest pain, palpitation, shortness of breath, fever, chills, abdominal pain or dysuria. Review of Systems Constitutional: Reports: no symptoms. Objective Last 24 Hrs of Vital Signs/I&O Vital Signs Date Time Temp Pulse Resp B/P B/P Pulse O2 O2 Flow FiO2 Mean Ox Delivery Rate 09/09 1524 97.9 87 18 110/74 95 Room Air 09/09 0849 72 134/80 09/09 0829 98.1 72 18 134/80 96 Room Air 09/08 2300 98.6 82 20 107/60 97 Room Air 09/08 1613 98.7 85 16 133/68 95 Room Air Intake & Output 09/09 1600 09/09 0800 09/09 0000 Intake Total 480 260 200 Output Total 400 200 250 Balance 80 60 -50 Intake, IV 20 Intake, Oral 480 240 200 Number 0 Bowel Movements Output, Urine 400 200 250 Patient 83.915 kg Weight Physical Exam General Appearance: Alert, Cooperative Other Physical Findings: HEENT: Atraumatic, PERRLA, EOMI, Mucous Membr. moist/pink Cardiovascular: Regular Rate, Normal S1, Normal S2, No Murmurs Lungs: Clear to Auscultation, Normal Air Movement Abdomen: Normal Bowel Sounds, Soft, No Tenderness Neurological: Normal Speech, right upper arm extremity weakness 3/5 with right lower extremity 4/5. Extremities: No Clubbing, No Cyanosis, No Edema Current Medications: Current Medications Sig/Jabier Start time Last Medication Dose Route Stop Time Status Admin Acetaminophen 650 MG .STK-MED ONE 09/09 0158 DC PO 09/09 0159 Acetaminophen 650 MG Q6P PRN 09/07 1415 AC 09/09 PO 0849 Allopurinol 100 MG DAILY 09/08 1000 AC 09/09 PO 0849 Aspirin Buffered 325 MG DAILY 09/08 1000 AC 09/09 PO 0848 Atorvastatin Calcium 80 MG 1700 09/07 1700 AC 09/08 PO 1114 Clopidogrel Bisulfate 75 MG DAILY 09/08 1000 AC 09/09 PO 0848 Colchicine 600 MCG BID 09/07 2200 AC 09/09 PO 0848 Heparin Sodium 25,000 UNIT Q24H 05/19 1800 DC (Porcine) IV Sodium Chloride 500 ML Heparin Sodium 5,000 UNIT Q8 09/07 2200 AC 09/09 (Porcine) SC 0612 Hydromorphone HCl 1 MG Q6P PRN 09/07 1415 AC 09/08 IV 0158 Insulin Aspart 0 TIDAC 09/07 1700 AC 09/08 SC 1804 Insulin Detemir 10 UNITS BID 09/07 2200 AC 09/09 SC 0850 Lisinopril 10 MG DAILY 09/08 1000 AC 09/09 PO 0849 Omeprazole 40 MG DAILY AC 09/08 0700 AC 09/09 PO 0612 Tramadol HCl 50 MG ONCE ONE 09/09 1000 DC 09/09 PO 09/09 1001 1005 Last 24 Hrs of Lab/Eriberto Results Last 24 Hrs of Labs/Mics: Laboratory Tests 09/09/16 06: Anion Gap 10, Estimated GFR 38 L, BUN/Creatinine Ratio 16.7 Assessment/Plan Assessment: #Acute Right Caudate CVA Head MRI and CT shows bilateral caudate head infarcts (currently a new 7 mm acute infarct within the left caudate head) and Moderate small vessel ischemia. patinet have some word finding difficulties. C/O subjective RUE weakness. Carotid ultrasound showed bilateral stenosis of 50%-79%. Patient passed swallowing evaluation. * Continue Plavix and Aspirin * Continue Atorvastatin * Controlled blood pressure with lisinopril #Symptomatic Carotid stenosis * Carotid ultrasound demonstrates a 50-79% hemodynamically significant stenosis in the left internal carotid artery. * Per vascular planning for possible carotid endarterectomy next week * Heparin drip was stopped yesterday the same us it was not clear that vascular wanted anticoagulation in preparation for a possible carotid endarterectomy next week. Will await cardiology clearance for the procedure as of now will continue to medically manage with Plavix and atorvastatin. #CAD/Hx of [place] and stents with post CO pericarditis. No chest pain at present. * we will consult veterinary technician instructor Dr. Ghotra * Continue Colchicine. * Continue aspirin * Continue Plavix #CKD * At presentation was 1.9 went down today to 1.6 * Avoid nephrotoxins. * Monitor renal function #DM2 Poorly controlled with Hgb A1C 12.7 * Continue Levemir * Monitor blood glucose. #Hypertension * Continue lisinopril #Hyperlipidemia Patient had stopped statin, he said it made him feel weak before, we will explained to the patient the importance of statin. * Continue atorvastatin. Heart healthy diet DVT prophylaxis heparin subcutaneous Full code Problem List: 1. Stroke Pain Ratin Pain Location: none Pain Goal: Remain pain free Pain Plan: Pain pathway Tomorrow's Labs & Rationales: bep cbc
[2016-09-09 08:29] VITALS: BP 134/80
--- NOTE | 2016-09-09 08:41 | PN- Att Addend ---
Attending Addendum Attending Brief Note Pt seen and examined. He is not a very reliable informant and has aphasia, he is with some right upper extremity weakness. His pressure is on the low side at 107/60 but otherwise he appears hemodynamically stable. He is a 65-year-old with multiple medical problems including coronary artery disease, diabetes, COPD who is here with a caudate CVA with hemodynamically significant carotid stenosis. He is on dual antiplatelet therapy with aspirin and statin and the plan is tentative carotid endarterectomy on Sunday. We will recheck with vascular to confirm whether he should be on IV heparin or not. As per the vascular notes yesterday that is no mention of IV heparin. We will also have Dr. Ghotra see the pt for cardiac optimization in anticipation of the surgery.
[2016-09-09 15:24] VITALS: BP 110/74
[2016-09-09 23:55] VITALS: BP 140/90
--- NOTE | 2016-09-10 08:27 | PN- Att Addend ---
Attending Addendum Attending Brief Note Patient seen and examined. Overall he is doing okay but he continues to be aphasic with right upper extremity weakness. Pressure is okay at 140/80, pulse is 78, afebrile, breathing at 16-18, lungs are clear to auscultation bilaterally and heart is S1-S2 regular. This is a 65-year-old diabetic, CAD with CKD who is here with a caudate CVA with carotid stenosis. At this point the vascular surgeon is unsure if this is a TIA which would prompt immediate carotid endarterectomy versus this is a full fledged CVA in which case he like to wait for 2 weeks or so. We'll have Dr. Ghotra see the patient for cardiac optimalization in anticipation of carotid endarterectomy. He is on aspirin and Plavix, statin and I confirmed that the vascular surgery specifically Dr. Moore and he doesn't need to be on IV heparin for now. Dr. Moore will make the decision about the carotid endarterectomy after cardiac optimization. We'll tentatively keep him nothing by mouth after midnight but in all likelihood this will be done at a later date.
[2016-09-10 08:31] LABS: ABSOLUTE BASOPHIL COUNT 0 /CUMM (0.0-0.2); ABSOLUTE EOSINOPHIL COUNT 0.6 /CUMM (0.0-0.7); ABSOLUTE GRANULOCYTE CT 4.6 /CUMM (1.4-6.5); ABSOLUTE LYMPH COUNT 1.7 /CUMM (1.2-3.4); ABSOLUTE MONOCYTE COUNT 0.6 /CUMM (0.10-0.60); BASOPHIL % 0.5 % (0.0-2.0); EOSINOPHIL % 7.4 % (0-5); HEMATOCRIT 46.3 % (42-52); MEAN CORPUSCULAR HGB 29.8 PG (27.0-31.0); MEAN CORPUSCULAR HGB CONC 33.3 G/DL (33.0-37.0); MEAN CORPUSCULAR VOLUME 89.6 FL (80.0-94.0); MEAN PLATELET VOLUME 10.3 FL (7.4-10.4); PLATELET COUNT 164 /CUMM (130-400); RBC DISTRIBUTION WIDTH 15.9 % (11.5-14.5); RED BLOOD CELL CT 5.16 /CUMM (4.70-6.10); WHITE BLOOD CELL COUNT 7.5 /CUMM (4.8-10.8)
[2016-09-10 08:47] VITALS: BP 130/84
--- NOTE | 2016-09-10 09:46 | PN- Housestaff ---
Subjective Follow-up For: CVA Coronary artery disease Hyperlipidemia DM CKD Tele-Events Since Last Visit: Normal sinus rhythm, heart rate 68-80, no overnight events Subjective: Afebrile, saturating well on room air, hemodynamically stable with blood pressure now 130s/80s, no acute overnight events. Patient denies any current active complaints. Patient is laying on bed looks relaxed and comfortable. Review of Systems Constitutional: Reports: no symptoms. Objective Last 24 Hrs of Vital Signs/I&O Vital Signs Date Time Temp Pulse Resp B/P B/P Pulse O2 O2 Flow FiO2 Mean Ox Delivery Rate 09/10 0942 75 130/84 09/10 0847 97.1 75 20 130/84 95 Room Air 09/09 2355 97.8 76 20 140/90 94 Room Air 09/09 1524 97.9 87 18 110/74 95 Room Air Intake & Output 09/10 1600 09/10 0800 09/10 0000 Intake Total 200 250 Output Total 350 Balance -150 250 Intake, Oral 200 250 Number 1 Bowel Movements Output, Urine 350 Physical Exam General Appearance: Alert, Oriented X3, Cooperative, No Acute Distress HEENT: Atraumatic, PERRLA, EOMI, Mucous Membr. moist/pink Cardiovascular: Regular Rate, Normal S1, Normal S2, No Murmurs Lungs: Clear to Auscultation, Normal Air Movement Abdomen: Normal Bowel Sounds, Soft, No Tenderness Neurological: Normal Speech, Strength at 5/5 X4 Ext (except right UE 2/5) Extremities: No Clubbing, No Cyanosis, No Edema Current Medications: Current Medications Sig/Jabier Start time Last Medication Dose Route Stop Time Status Admin Acetaminophen 650 MG Q6P PRN 09/07 1415 AC 09/10 PO 0949 Allopurinol 100 MG DAILY 09/08 1000 AC 09/10 PO 0942 Aspirin Buffered 325 MG DAILY 09/08 1000 AC 09/10 PO 0942 Atorvastatin Calcium 80 MG 1700 09/07 1700 AC 09/09 PO 1816 Clopidogrel Bisulfate 75 MG DAILY 09/08 1000 AC 09/10 PO 0942 Colchicine 600 MCG BID 09/07 2200 AC 09/10 PO 0942 Heparin Sodium 5,000 UNIT Q8 09/07 2200 AC 09/10 (Porcine) SC 0607 Hydromorphone HCl 1 MG Q6P PRN 09/07 1415 AC 09/08 IV 0158 Insulin Aspart 0 TIDAC 09/07 1700 AC 09/08 SC 1804 Insulin Detemir 10 UNITS BID 09/07 2200 AC 09/10 SC 0929 Lisinopril 10 MG DAILY 09/08 1000 AC 09/10 PO 0942 Omeprazole 40 MG DAILY AC 09/08 0700 AC 09/10 PO 0602 Last 24 Hrs of Lab/Eriberto Results Last 24 Hrs of Labs/Mics: Laboratory Tests 09/10/16 0630: Anion Gap 12, Estimated GFR 38 L, BUN/Creatinine Ratio 18.9, CBC w Diff NO MAN DIFF REQ, RBC 5.16, MCV 89.6, MCH 29.8, RDW 15.9 H, MPV 10.3, Gran % 61.0, Lymphocytes % 22.7, Monocytes % 8.4, Eosinophils % 7.4 H, Basophils % 0.5, Absolute Granulocytes 4.6, Absolute Lymphocytes 1.7, Absolute Monocytes 0.6, Absolute Eosinophils 0.6, Absolute Basophils 0, PUBS MCHC 33.3 Assessment/Plan Assessment: #Acute Right Caudate CVA/Symptomatic Carotid stenosis Head MRI and CT shows bilateral caudate head infarcts (currently a new 7 mm acute infarct within the left caudate head) and Moderate small vessel ischemia. patinet have some word finding difficulties. C/O subjective RUE weakness. Carotid ultrasound showed bilateral stenosis of 50%-79%. Patient passed swallowing evaluation. * Continue Plavix and Aspirin * Continue Atorvastatin * Controlled blood pressure with lisinopril * We will repeat MRI head and neck, to guide the management with regards to timing of revascularization with left carotid endarterectomy. * We will hold heparin agreed by Dr. Moore * Patient will be kept nothing by mouth starting midnight for possible endarterectomy tomorrow, however because this is acute CVA it may be in appropriate to put the patient through antiplatelet and anticoagulant which can put him the risk of rebleeding. If no endarterectomy and a be done patient will be switched back to regular diet in the a.m. #CAD/Hx of [place] and stents with post MS pericarditis. No chest pain at present. * we will consult remote medical coder Dr. Ghotra * Continue Colchicine. * Continue aspirin * Continue Plavix #CKD * At presentation Cr was 1.9 now was 1.8 * Avoid nephrotoxins. * Monitor renal function #DM2 Poorly controlled with Hgb A1C 12.7 * Continue Levemir * Monitor blood glucose. #Hypertension * Continue lisinopril #Hyperlipidemia Patient had stopped statin, he said it made him feel weak before, we will explained to the patient the importance of statin. * Continue atorvastatin. Heart healthy diet DVT prophylaxis heparin subcutaneous Full code Problem List: 1. Stroke 2. Pericarditis 3. Diabetes Pain Ratin Pain Location: headache Pain Goal: Remain pain free Pain Plan: See A&P Tomorrow's Labs & Rationales: See A&P
--- NOTE | 2016-09-10 09:52 | PN- Neurology ---
Subjective Subjective: HPI: 65-year-old man presented with apparent confusion and right arm weakness. Brain MRI showed a 7 mm acute infarcts in the left caudate head When attempting to communicate, the patient asks me "why?" And "what?" (When I explained that he has had a stroke and the plan going forward, his facial expression indicates to me that he is satisfied with the answers provided to him.) Nursing staff reports a fluctuating ability for the patient to use his right hand. Currently he is attempting to feed himself breakfast using his left hand only. Review of Systems: Limited due to a aphasia. No other obvious systemic complaints at this time Objective Vital Signs and I&Os Vital Signs Date Time Temp Pulse Resp B/P B/P Pulse O2 O2 Flow FiO2 Mean Ox Delivery Rate 09/10 0847 97.1 75 20 130/84 95 Room Air 09/09 2355 97.8 76 20 140/90 94 Room Air 09/09 1524 97.9 87 18 110/74 95 Room Air Intake & Output 09/10 1600 09/10 0800 09/10 0000 09/09 1600 09/09 0800 09/09 0000 Intake Total 200 250 480 260 200 Output Total 350 400 200 250 Balance -150 250 80 60 -50 Intake, IV 20 Intake, Oral 200 250 480 240 200 Number 1 0 Bowel Movements Output, Urine 350 400 200 250 Patient 185 lb Weight Physical Exam: Awake, awake alert, Moderate to severe nonfluent aphasia with relatively preserved comprehension Severe alexia and anomia Oral motor apraxia. When asked to protrude his tongue, he instead grimaces. Extraocular movements full Very mild right lower facial weakness Right upper extremity power currently 0-1 out of 5 Right lower extremity about 3- out of 5 Left arm and leg strength within normal limits Current Medications: Current Medications Sig/Jabier Start time Last Medication Dose Route Stop Time Status Admin Acetaminophen 650 MG Q6P PRN 09/07 1415 AC 09/09 PO 0849 Allopurinol 100 MG DAILY 09/08 1000 AC 09/09 PO 0849 Aspirin Buffered 325 MG DAILY 09/08 1000 AC 09/09 PO 0848 Atorvastatin Calcium 80 MG 1700 09/07 1700 AC 09/09 PO 1816 Clopidogrel Bisulfate 75 MG DAILY 09/08 1000 AC 09/09 PO 0848 Colchicine 600 MCG BID 09/07 2199 AC 09/09 PO 220 Heparin Sodium 5,000 UNIT Q8 09/07 2199 AC 09/10 (Porcine) SC 0607 Hydromorphone HCl 1 MG Q6P PRN 09/07 1415 AC 09/08 IV 0158 Insulin Aspart 0 TIDAC 09/07 1700 AC 09/08 SC 1804 Insulin Detemir 10 UNITS BID 09/07 2200 AC 09/10 SC 0929 Lisinopril 10 MG DAILY 09/08 1000 AC 09/09 PO 0849 Omeprazole 40 MG DAILY AC 09/08 0700 AC 09/10 PO 0602 Tramadol HCl 50 MG ONCE ONE 09/09 1000 DC 09/09 PO 09/09 1001 1005 Results Last 24 Hours of Lab Results: Laboratory Tests 09/10 629 Chemistry Sodium (137 - 145 mmol/L) 140 Potassium (3.5 - 5.1 mmol/L) 4.2 Chloride (98 - 107 mmol/L) 103 Carbon Dioxide (22 - 30 mmol/L) 25 Anion Gap (5 - 16) 12 BUN (9 - 20 mg/dL) 34 H Creatinine (0.7 - 1.2 mg/dL) 1.8 H Estimated GFR (>60 ml/min) 38 L BUN/Creatinine Ratio (7 - 25 %) 18.9 Hematology CBC w Diff NO MAN DIFF REQ WBC (4.8 - 10.8 /CUMM) 7.5 RBC (4.70 - 6.10 /CUMM) 5.16 Hgb (14.0 - 18.0 G/DL) 15.4 Hct (42 - 52 %) 46.3 MCV (80.0 - 94.0 FL) 89.6 MCH (27.0 - 31.0 PG) 29.8 RDW (11.5 - 14.5 %) 15.9 H Plt Count (130 - 400 /CUMM) 164 MPV (7.4 - 10.4 FL) 10.3 Gran % (42.2 - 75.2 %) 61.0 Lymphocytes % (20.5 - 51.1 %) 22.7 Monocytes % (1.7 - 9.3 %) 8.4 Eosinophils % (0 - 5 %) 7.4 H Basophils % (0.0 - 2.0 %) 0.5 Absolute Granulocytes (1.4 - 6.5 /CUMM) 4.6 Absolute Lymphocytes (1.2 - 3.4 /CUMM) 1.7 Absolute Monocytes (0.10 - 0.60 /CUMM) 0.6 Absolute Eosinophils (0.0 - 0.7 /CUMM) 0.6 Absolute Basophils (0.0 - 0.2 /CUMM) 0 PUBS MCHC (33.0 - 37.0 G/DL) 33.3 Recent Imaging Studies: Brain MRI reviewed There is a small 7 mm acute infarct within the left caudate head. - Moderate chronic microangiopathy and a chronic lacunar infarct within the right caudate head. DICTATED BY: RAMIRO PANDA MD DATE/TIME DICTATED:09/07/161213 INSIDE SALES DIRECTOR:LISA DATE/TIME TRANSCRIBED:09/07/161213 Carotid US 09-07 IMPRESSION: Hemodynamically significant stenoses consistent with a 50-79% diameter reduction of the proximal left internal carotid artery. A hemodynamically significant stenosis of greater than 50% is not present on the right. DICTATED BY: VON VANCE MD DATE/TIME DICTATED:09/07/161641 Assessment/Plan Assessment: Since Mr. Barboza's current neurologic deficits are out of proportion to the size of the acute infarct as seen on MRI on September 07, I suspect that the infarct has either extended or he has an ongoing ischemic penumbra (with potentially salvageable brain tissue) Plan: Repeat Brain MRI which will help delineate the size of the current infarct to guide management with regard to timing of revascularization with left carotid endarterectomy. MRA of the head and neck Continue antiplatelet and statin therapy Continue DVT prophylaxis PT, OT, ST
--- NOTE | 2016-09-10 11:31 | Event Note ---
Event Note Event Note: Dr Rivas from neurlogy called me after she saw the pt and reviewed the MRI. She is concerned that the pt's symptoms of aphasia and weakness are much more than what can be explained by the tiny caudate infarct seen on the MRI. At this point she feels that we need to repeat the MRI. If the MRI shows that the infarct is larger than what it was on September 07 ,then the carotid endarterectomy should be postponed for a week or so as this is a CVA and hemorrhagic transformation is a risk. If the MRI doesn't show a large CVA ,then this would be ongoing TIA symptoms and the carotid endarterectomy would be pursued more urgently. Patient needs an MRI first thing in the morning.
[2016-09-10 15:00] VITALS: BP 118/70
[2016-09-10 23:32] VITALS: BP 138/88
--- NOTE | 2016-09-11 07:29 | PN- Housestaff ---
See Addendum Subjective Follow-up For: CVA Coronary artery disease Carotid artery stenosis Hyperlipidemia DM CKD Tele-Events Since Last Visit: Normal sinus rhythm, bundle branch block, heart rate 76-93 no events. Subjective: Afebrile, saturating well on room air, hemodynamically stable, no acute overnight events reported. Patient denies any current active complaints. I was speaking to the patient after he came back from MRI, and while I was talking to him he moved his right arm and bend his right wrist. When I asked him to repeat the same exact move again, he said I cannot. Review of Systems Constitutional: Reports: no symptoms. Objective Last 24 Hrs of Vital Signs/I&O Vital Signs Date Time Temp Pulse Resp B/P B/P Pulse O2 O2 Flow FiO2 Mean Ox Delivery Rate 09/11 0913 78 140/92 09/11 0842 98.3 78 18 138/90 97 Room Air 09/11 0000 96 Room Air 09/10 2332 98.2 73 16 138/88 96 Room Air 09/10 1500 98.2 69 16 118/70 95 Room Air Intake & Output 09/11 1600 09/11 0800 09/11 0000 Intake Total 50 450 Output Total 350 850 Balance -300 -400 Intake, Oral 50 450 Number 0 Bowel Movements Output, Urine 350 850 Physical Exam General Appearance: Alert, Oriented X3, Cooperative, No Acute Distress HEENT: Atraumatic, PERRLA, EOMI, Mucous Membr. moist/pink Cardiovascular: Regular Rate, Normal S1, Normal S2, No Murmurs Lungs: Clear to Auscultation, Normal Air Movement Abdomen: Normal Bowel Sounds, Soft, No Tenderness Neurological: Normal Speech, Strength at 5/5 X4 Ext (except right arm 3/5) Extremities: No Clubbing, No Cyanosis, No Edema Current Medications: Current Medications Sig/Jabier Start time Last Medication Dose Route Stop Time Status Admin Acetaminophen 650 MG Q6P PRN 09/07 1415 AC 09/10 PO 0949 Allopurinol 100 MG DAILY 09/08 1000 AC 09/11 PO 09 Aspirin Buffered 325 MG DAILY 09/08 1000 AC 09/11 PO 09 Atorvastatin Calcium 80 MG 1700 09/07 1700 AC 09/10 PO 1718 Clopidogrel Bisulfate 75 MG DAILY 09/08 1000 AC 09/11 PO 09 Colchicine 600 MCG BID 09/07 2200 AC 09/11 PO 0913 Heparin Sodium 5,000 UNIT Q8 09/07 2200 AC 09/11 (Porcine) SC 0630 Hydromorphone HCl 1 MG Q6P PRN 09/07 1415 AC 09/08 IV 0158 Insulin Aspart 0 TIDAC 09/07 1700 AC 09/10 SC 1717 Insulin Detemir 10 UNITS BID 09/07 2200 AC 09/10 SC 2126 Lisinopril 10 MG DAILY 09/08 1000 AC 09/11 PO 0913 Omeprazole 40 MG DAILY AC 09/08 0700 AC 09/11 PO 0631 Last 24 Hrs of Lab/Eriberto Results Last 24 Hrs of Labs/Mics: Laboratory Tests 09/11/16 0611: Anion Gap 12, Estimated GFR 38 L, BUN/Creatinine Ratio 20.0 Assessment/Plan Assessment: #Acute Right Caudate CVA/Symptomatic Carotid stenosis Head MRI and CT shows bilateral caudate head infarcts (currently a new 7 mm acute infarct within the left caudate head) and Moderate small vessel ischemia. patinet have some word finding difficulties. C/O subjective RUE weakness. Carotid ultrasound showed bilateral stenosis of 50%-79%. Patient passed swallowing evaluation. * Continue Plavix and Aspirin * Continue Atorvastatin * Controlled blood pressure with lisinopril * We will repeat MRI head and neck, to guide the management with regards to timing of revascularization with left carotid endarterectomy. #CAD/Hx of [place] and stents with post [place] pericarditis. No chest pain at present. * Continue Colchicine. * Continue aspirin * Continue Plavix * we will consult vegetable buncher to optimize patient for possible carotid endarterectomy #CKD * At presentation Cr was 1.9 now is 1.8 * Avoid nephrotoxins. * Monitor renal function #DM2 Poorly controlled with Hgb A1C 12.7 * Continue Levemir * Monitor blood glucose. #Hypertension * Continue lisinopril #Hyperlipidemia * Continue atorvastatin. Diabetic diet DVT prophylaxis heparin subcutaneous Full code Problem List: 1. Stroke Pain Ratin Pain Location: na Pain Goal: Remain pain free Pain Plan: See assessment and plan Tomorrow's Labs & Rationales: BEP for renal function
[2016-09-11 08:42] VITALS: BP 138/90
--- NOTE | 2016-09-11 09:40 | PN- Vascular Surgery ---
Subjective Subjective: Pt states "Im OK" Objective Vital Signs and I&Os Vital Signs Date Time Temp Pulse Resp B/P B/P Pulse O2 O2 Flow FiO2 Mean Ox Delivery Rate 09/11 0913 78 140/92 09/11 0842 98.3 78 18 138/90 97 Room Air 09/11 0000 96 Room Air 09/10 2332 98.2 73 16 138/88 96 Room Air 09/10 1500 98.2 69 16 118/70 95 Room Air 09/10 0942 75 130/84 Intake & Output 09/11 1600 09/11 0800 09/11 0000 09/10 1600 09/10 0800 09/10 0000 Intake Total 50 450 450 200 250 Output Total 350 850 350 Balance -300 -400 450 -150 250 Intake, Oral 50 450 450 200 250 Number 0 1 Bowel Movements Output, Urine 350 850 350 Physical Exam: Minimal strength in R UE, though not a dense paralysis. Current Medications: Current Medications Sig/Jabier Start time Last Medication Dose Route Stop Time Status Admin Acetaminophen 650 MG Q6P PRN 09/07 1415 AC 09/10 PO 0949 Allopurinol 100 MG DAILY 09/08 1000 AC 09/11 PO 0913 Aspirin Buffered 325 MG DAILY 09/08 1000 AC 09/11 PO 0913 Atorvastatin Calcium 80 MG 1700 09/07 1700 AC 09/10 PO 1718 Clopidogrel Bisulfate 75 MG DAILY 09/08 1000 AC 09/11 PO 0913 Colchicine 600 MCG BID 09/07 2200 AC 09/11 PO 0913 Heparin Sodium 5,000 UNIT Q8 09/07 2200 AC 09/11 (Porcine) SC 0630 Hydromorphone HCl 1 MG Q6P PRN 09/07 1415 AC 09/08 IV 0158 Insulin Aspart 0 TIDAC 09/07 1700 AC 09/10 SC 1717 Insulin Detemir 10 UNITS BID 09/07 2200 AC 09/10 SC 2126 Lisinopril 10 MG DAILY 09/08 1000 AC 09/11 PO 0913 Omeprazole 40 MG DAILY AC 09/08 0700 AC 09/11 PO 0631 Results Last 48 Hours of Labs: Laboratory Tests 09/11 09/10 0611 0630 Chemistry Sodium (137 - 145 mmol/L) 141 140 Potassium (3.5 - 5.1 mmol/L) 4.3 4.2 Chloride (98 - 107 mmol/L) 103 103 Carbon Dioxide (22 - 30 mmol/L) 26 25 Anion Gap (5 - 16) 12 12 BUN (9 - 20 mg/dL) 36 H 34 H Creatinine (0.7 - 1.2 mg/dL) 1.8 H 1.8 H Estimated GFR (>60 ml/min) 38 L 38 L BUN/Creatinine Ratio (7 - 25 %) 20.0 18.9 Hematology CBC w Diff NO MAN DIFF REQ WBC (4.8 - 10.8 /CUMM) 7.5 RBC (4.70 - 6.10 /CUMM) 5.16 Hgb (14.0 - 18.0 G/DL) 15.4 Hct (42 - 52 %) 46.3 MCV (80.0 - 94.0 FL) 89.6 MCH (27.0 - 31.0 PG) 29.8 RDW (11.5 - 14.5 %) 15.9 H Plt Count (130 - 400 /CUMM) 164 MPV (7.4 - 10.4 FL) 10.3 Gran % (42.2 - 75.2 %) 61.0 Lymphocytes % (20.5 - 51.1 %) 22.7 Monocytes % (1.7 - 9.3 %) 8.4 Eosinophils % (0 - 5 %) 7.4 H Basophils % (0.0 - 2.0 %) 0.5 Absolute Granulocytes (1.4 - 6.5 /CUMM) 4.6 Absolute Lymphocytes (1.2 - 3.4 /CUMM) 1.7 Absolute Monocytes (0.10 - 0.60 /CUMM) 0.6 Absolute Eosinophils (0.0 - 0.7 /CUMM) 0.6 Absolute Basophils (0.0 - 0.2 /CUMM) 0 PUBS MCHC (33.0 - 37.0 G/DL) 33.3 Assessment/Plan Assessment/Plan 65 yo with "small" caudate stroke and 50-79% L carotid lesion. I agree with input from neurology in that the infarct does not match up with his clinical presentation (which appears to be more severe). Agree with continued neuro and cardiac workup, as endaraterectomy can proceed once he is stabilized neurologically, and optimized from a cardiac perspective. Agree with aspirin 81mg and plavix 75 mg daily. Please call once patient has been stabilized. OK to follow as outpatient after discharge. Problem List: 1. Stroke Core Measures/Miscellaneous Venous Thromboembolism VTE Risk Factors: Acute medical illness VTE Contraindications: No Contraindications VTE Diagnosis: No VTE Type: NONE VTE Confirmed by (Test): NONE Beta Kashif Is Beta Kashif a Home Med? No Antibiotics Is Patient on Antibiotics? No
--- NOTE | 2016-09-11 10:52 | NUR ---
CANCEL PT FOR TODAY, PENDING VASCULAR SURGERY, WILL FOLLOW
--- NOTE | 2016-09-11 11:10 | PN- Neurology ---
See Addendum Subjective Subjective: Brother, Shan visiting. Lives nearby. Reports that his brother lives alone and was functioning independently prior to this stroke. Shan states that their mother is currently at the [facility] following a hip fracture. Today, the patient has no specific complaints. He continues to have difficulty with expressive speech and right-sided weakness. Review of Systems: Otherwise unremarkable as best we can gather from the patient Objective Vital Signs and I&Os Vital Signs Date Time Temp Pulse Resp B/P B/P Pulse O2 O2 Flow FiO2 Mean Ox Delivery Rate 09/11 09 78 140/92 09/11 0842 98.3 78 18 138/90 97 Room Air 09/11 0000 96 Room Air 09/10 2332 98.2 73 16 138/88 96 Room Air 09/10 1500 98.2 69 16 118/70 95 Room Air Intake & Output 09/11 1600 09/11 0800 09/11 0000 09/10 1600 09/10 0800 09/10 0000 Intake Total 50 450 450 200 250 Output Total 350 850 350 Balance -300 -400 450 -150 250 Intake, Oral 50 450 450 200 250 Number 0 1 Bowel Movements Output, Urine 350 850 350 Physical Exam: Awake, alert, sitting up in bed Today he was able to read most of the words on the NIH stroke scale card, making some phonemic paraphasic errors Confrontation naming remains impaired He follows gestural cues better than verbal cues (for example, opening his mouth and protruding his tongue) Right upper extremity has about 2 out of 5 strength, right lower extremity about 3 out of 5 Current Medications: Current Medications Sig/Jabier Start time Last Medication Dose Route Stop Time Status Admin Acetaminophen 650 MG Q6P PRN 09/07 1415 AC 09/10 PO 0949 Allopurinol 100 MG DAILY 09/08 1000 AC 09/11 PO 0913 Aspirin Buffered 325 MG DAILY 09/08 1000 AC 09/11 PO 0913 Atorvastatin Calcium 80 MG 1700 09/07 1700 AC 09/10 PO 1718 Clopidogrel Bisulfate 75 MG DAILY 09/08 1000 AC 09/11 PO 0913 Colchicine 600 MCG BID 09/07 2199 AC 09/11 PO 0913 Heparin Sodium 5,000 UNIT Q8 09/07 2199 AC 09/11 (Porcine) SC 0630 Hydromorphone HCl 1 MG Q6P PRN 09/07 1415 AC 09/08 IV 0158 Insulin Aspart 0 TIDAC 09/07 1700 AC 09/10 SC 1717 Insulin Detemir 10 UNITS BID 09/07 2200 AC 09/10 SC 2126 Lisinopril 10 MG DAILY 09/08 1000 AC 09/11 PO 0913 Omeprazole 40 MG DAILY AC 09/08 0700 AC 09/11 PO 0631 Results Last 24 Hours of Lab Results: Laboratory Tests 09/11 610 Chemistry Sodium (137 - 145 mmol/L) 141 Potassium (3.5 - 5.1 mmol/L) 4.3 Chloride (98 - 107 mmol/L) 103 Carbon Dioxide (22 - 30 mmol/L) 26 Anion Gap (5 - 16) 12 BUN (9 - 20 mg/dL) 36 H Creatinine (0.7 - 1.2 mg/dL) 1.8 H Estimated GFR (>60 ml/min) 38 L BUN/Creatinine Ratio (7 - 25 %) 20.0 Recent Imaging Studies: Repeat brain MRI is pending MRA of the intracranial vessels is pending Recent Imaging Studies: Initial Brain MRI reviewed There is a small 7 mm acute infarct within the left caudate head. - Moderate chronic microangiopathy and a chronic lacunar infarct within the right caudate head. DICTATED BY: RAMIRO PANDA MD DATE/TIME DICTATED:09/07/161213 SIDE DOOR WORKER:LISA DATE/TIME TRANSCRIBED:09/07/161213 Carotid US 09-07 IMPRESSION: Hemodynamically significant stenoses consistent with a 50-79% diameter reduction of the proximal left internal carotid artery. A hemodynamically significant stenosis of greater than 50% is not present on the right. DICTATED BY: VON VANCE MD DATE/TIME DICTATED:09/07/161641 Assessment/Plan Assessment: Since Mr. Barboza's current neurologic deficits are out of proportion to the size of the acute infarct as seen on MRI on September 07, I suspect that the infarct has either extended or he has an ongoing ischemic penumbra (with potentially salvageable brain tissue) Plan: Repeat Brain MRI which will help delineate the size of the current infarct to guide management with regard to timing of revascularization with left carotid endarterectomy. MRA of the head Continue antiplatelet and statin therapy Continue DVT prophylaxis PT, OT, ST Excellent acute rehabilitation candidate [facility]
--- NOTE | 2016-09-11 12:55 | MRI REPORT ---
EXAMINATION: MR BRAIN WITHOUT CONTRAST MR ANGIOGRAPHY HEAD WITHOUT CONTRAST CLINICAL INFORMATION: Confusion with right arm weakness. Evaluate for infarction. COMPARISON: Brain MRI dated 09/07/2016. TECHNIQUE: Multiplanar, multisequence imaging of the brain was obtained without intravenous administration of contrast. 3-D [id number] MR angiography is performed. Multiple 3-D reformatted images are processed on the technologist workstation. The study is limited due to patient motion artifacts. FINDINGS: There are new subcentimeter acute infarcts in a parasagittal and linear border zone distribution within the left frontoparietal lobes at the level of the centrum semiovale extending to the vertex. There are a few small acute infarcts as well in the left occipitotemporal lobes. In addition to the previously seen left caudate head infarct, there is a new subcentimeter acute infarct in the left parietal lobe posteriorly. The ventricles are normal in size. No mass effect or midline shift is seen. Moderate chronic white matter microangiopathic changes are again noted with generalized volume loss. Chronic infarcts again noted in the right basal ganglia. No extra-axial fluid collections are seen. The brainstem and cerebellum are normal. No pathologic magnetic susceptibility artifact is identified on the gradient refocused acquisition. The craniovertebral junction, marrow signal, and midline structures are normal. The major intracranial flow voids at the level of the [place] are preserved. The dural venous sinus flow voids are maintained. The mastoid air cells and paranasal sinuses are fairly well aerated. MRA of the [place] demonstrates a normal caliber to the anterior and posterior circulation vasculature. No stenoses or occlusions are seen. No vascular malformation or aneurysms are identified. IMPRESSION: New subcentimeter left-sided border zone infarcts in the frontoparietal lobes. Few scattered punctate acute infarcts in the left occipitotemporal lobes as well. Evolving early subacute infarct in the left caudate head. Moderate chronic white matter microangiopathy. Normal MRA of the head.
[2016-09-11 13:09] VITALS: BP 148/80
--- NOTE | 2016-09-11 13:24 | NUR ---
OCCUPATIONAL THERAPY NOTE: ATTEMPTED TO SEE PT IN AM, PT OFF UNIT RECEIVING AN MRI. OT WILL F/U TOMORROW IF APPROPRIATE PENDING MRI RESULTS.
--- NOTE | 2016-09-11 14:03 | Cons- Cardiology ---
General Information and HPI Consulting Request Date of Consult: 09/11/16 Requested By: RAFAELA PANIAGUA MD Reason for Consult: Stroke. Source of Information: patient, old records Exam Limitations: clinical condition History of Present Illness: Mr. Uriel Barboza is a 65-year-old male with a history of long-standing, recently discontinued tobacco use, presumed COPD, hypertension, dyslipidemia, gout, diabetes mellitus, and coronary artery disease with a recent acute coronary syndrome (anterior STEMI) s/p PCI on 06/16/2016 who was sent from our office to the ED with complaints of chest pain and electrocardiographic changes, that were ultimately felt to be on the basis of pericarditis and that improved with standard therapy (ASA 650 mg 3 times a day, colchicine 600 g twice a day) and who presented to the ED on 09/05/2016 with complaints of transient "confusion and right arm/leg paralysis", c/w TIA, but left the ED AMA, only to return with similar symptoms on 09/07/2016, with a brain MRI c/w a small 7 mm acute infarct within the left caudate head, as well as, moderate chronic microangiopathy and a chronic lacunar infarct within the right caudate head and a carotid ultrasound that revealed a hemodynamically significant stenosis consistent with a 50-79% diameter reduction of the proximal left internal carotid artery. According to the house staff, he has had waxing and waning neurologic signs/ symptoms and underwent a second brain MRI today (09/11/2016) c/w a new subcentimeter left-sided border zone infarcts in the frontoparietal lobes and a few scattered punctate acute infarcts in the left occipitotemporal lobes as well c/w evolving early subacute infarct in the left caudate head. A review of his recent cardiac history follows: Mr. Barboza presented to the ED on 06/16/2016 with chest pain and electrocardiographic evidence of an anterior STEMI that prompted emergency transfer to the cardiac catheterization laboratory at [facility] where the diagnostic catheterization revealed: LM-patent, LAD-95% long mid vessel lesion at the takeoff of the second diagonal branch, first diagonal branch with 30% ostial stenosis, LCx-mild luminal irregularities, RCA dominant with 80% proximal stenosis and luminal irregularities, LV gram-EF 50% which prompted successful PCI/KIRK (Resolute) of the culprit LAD stenosis was 0% residual narrowing and JENS 3 flow, and PCI/POBA of the second diagonal branch with 20% residual stenosis and JENS-3 flow. He was brought back to the cardiac catheterization laboratory at [facility] electively on 06/28/2016 and had successful PCI/KIRK (Resolute) of the proximal RCA stenosis to 0% residual and JENS-3 flow. Allergies/Medications Allergies: Coded Allergies: No Known Allergies (06/16/16) Home Med List: Allopurinol 100 MG TABLET 1 TAB PO PRN GOUT (Reported) Aspirin (Ecotrin*) 325 MG TABLET.DR 650 MG PO TID PERICARDITIS Atorvastatin Calcium 40 MG TABLET 1 TAB PO QPM CHOLESTEROL (Reported) Clopidogrel Bisulfate (Clopidogrel) 75 MG TABLET 1 TAB PO DAILY BLOOD THINNER (Reported) Colchicine 0.6 MG TABLET 1 TAB PO BID PRN PERICARDITIS (Reported) Lisinopril 10 MG TABLET 1 TAB PO DAILY BP (Reported) Metformin HCl 500 MG TABLET 1 TAB PO BID HYPERGLYCEMIA Omeprazole 40 MG CAPSULE. 1 CAP PO DAILY PRN GI (Reported) Review of Systems Review of Systems: A 14 point system review was attempted, but could not be obtained given the patient's altered mental status. Past History Travel History Traveled to [place] past 21 day No Medical History Neurological: NONE EENT: hearing loss Cardiovascular: CAD, hypertension, hyperlipidemia, STEMI, (DOES TAKE THE MEDS) STENT PLACEMENT 06/16 PCI/KIRK to LAD and RCA; PCI/POBA ostial Dx 2. 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 Home Who Do You Live With? self Services at Home: None Primary Language: Lithuanian Smoking Status: Former Smoker ETOH Use: denies use Illicit Drug Use: denies illicit drug use Living Will? no Functional Ability ADLs Independent: dressing, eating, toileting, bathing. Ambulation: independent IADLs Independent: shopping, housework, finances, food prep, telephone, transportation , medication admin. Exam & Diagnostic Data Vital Signs and I&O Vital Signs Date Time Temp Pulse Resp B/P B/P Pulse O2 O2 Flow FiO2 Mean Ox Delivery Rate 09/11 1309 98.0 74 20 148/80 97 Room Air Room Air 09/11 0913 78 140/92 09/11 0842 98.3 78 18 138/90 97 Room Air 09/11 0000 96 Room Air 09/10 2332 98.2 73 16 138/88 96 Room Air 09/10 1500 98.2 69 16 118/70 95 Room Air Intake & Output 09/11 1600 09/11 0800 09/11 0000 09/10 1600 09/10 0800 09/10 0000 Intake Total 50 450 450 200 250 Output Total 350 850 350 Balance -300 -400 450 -150 250 Intake, Oral 50 450 450 200 250 Number 0 1 Bowel Movements Output, Urine 350 850 350 Physical Exam: Well-developed, well-nourished male in no acute distress with nasal oxygen in place. Vital signs: See above. HEENT: Normocephalic, atraumatic, EOMI, slightly dry mucous membranes. Neck: No JVD, no bruits. Lungs: Decreased breath sounds bilaterally. Heart: S1, S2 with no murmur, gallop, or rub appreciated. PMI fifth ICS at [facility]. Abdomen: Soft, nontender, positive bowel sounds. Extremities: No edema. Labs/Eriberto Results: Laboratory Tests 09/11 09/10 0611 0630 Chemistry Sodium (137 - 145 mmol/L) 141 140 Potassium (3.5 - 5.1 mmol/L) 4.3 4.2 Chloride (98 - 107 mmol/L) 103 103 Carbon Dioxide (22 - 30 mmol/L) 26 25 Anion Gap (5 - 16) 12 12 BUN (9 - 20 mg/dL) 36 H 34 H Creatinine (0.7 - 1.2 mg/dL) 1.8 H 1.8 H Estimated GFR (>60 ml/min) 38 L 38 L BUN/Creatinine Ratio (7 - 25 %) 20.0 18.9 Hematology CBC w Diff NO MAN DIFF REQ WBC (4.8 - 10.8 /CUMM) 7.5 RBC (4.70 - 6.10 /CUMM) 5.16 Hgb (14.0 - 18.0 G/DL) 15.4 Hct (42 - 52 %) 46.3 MCV (80.0 - 94.0 FL) 89.6 MCH (27.0 - 31.0 PG) 29.8 RDW (11.5 - 14.5 %) 15.9 H Plt Count (130 - 400 /CUMM) 164 MPV (7.4 - 10.4 FL) 10.3 Gran % (42.2 - 75.2 %) 61.0 Lymphocytes % (20.5 - 51.1 %) 22.7 Monocytes % (1.7 - 9.3 %) 8.4 Eosinophils % (0 - 5 %) 7.4 H Basophils % (0.0 - 2.0 %) 0.5 Absolute Granulocytes (1.4 - 6.5 /CUMM) 4.6 Absolute Lymphocytes (1.2 - 3.4 /CUMM) 1.7 Absolute Monocytes (0.10 - 0.60 /CUMM) 0.6 Absolute Eosinophils (0.0 - 0.7 /CUMM) 0.6 Absolute Basophils (0.0 - 0.2 /CUMM) 0 PUBS MCHC (33.0 - 37.0 G/DL) 33.3 Diagnostic Data EKG Results (09/07/2016): Sinus rhythm, first-degree AV block, probable TYRELL, LAFB, RBBB, and minor nondiagnostic lateral ST T-wave abnormalities. Less ST-T wave abnormalities when compared to previous tracing (09/05/2016). CXR Results (09/07/2016): No acute cardiopulmonary process. Other Results MRI/MRA head (09/11/2016): New subcentimeter left-sided border zone infarcts in the frontoparietal lobes. Few scattered punctate acute infarcts in the left occipitotemporal lobes as well. Evolving early subacute infarct in the left caudate head. Moderate chronic white matter microangiopathy. Normal MRA of the head. Assessment/Plan Assessment/Plan 65-year-old male with a hx of long-standing tobacco use, presumed COPD , HTN, HLD, gout, DM, pericarditis, & CAD (anterior STEMI s/p PCI on 06/16/2016) and who presented to the ED twice recently (09/05/2016 and 09/07/2016) with complaints of transient "confusion and right arm/leg paralysis", c/w TIA, w/ a brain MRI (09/07/2016) c/w a small 7 mm acute infarct within the left caudate head, as well as, moderate chronic microangiopathy and a chronic lacunar infarct within the right caudate head and a carotid ultrasound that revealed a hemodynamically significant stenosis consistent with a 50-79% diameter reduction of the proximal left internal carotid artery who had a repeat MRI done present 09/11/2016), given waxing and waning symptoms out of proportion to the initial MRI findings. This revealed a new subcentimeter left-sided border zone infarcts in the frontoparietal lobes and a few scattered punctate acute infarcts in the left occipitotemporal lobes as well c/w evolving early subacute infarct in the left caudate head. From a cardiac standpoint, Mr. Barboza has had no complaints of exertional chest discomfort, palpitations, shortness of breath, etc. and had recent percutaneous coronary interventions without evidence of residual high-grade coronary artery disease. Based on the above, it is felt that the potential risks of carotid endarterectomy are outweighed by the potential benefits given his present neurological status. Consult Acknowledgment - Thank you for your consult request.
[2016-09-11 16:22] VITALS: BP 130/80
[2016-09-12 00:26] VITALS: BP 127/67
[2016-09-12 08:00] VITALS: BP 130/76
--- NOTE | 2016-09-12 08:31 | PN- Vascular Surgery ---
Subjective Subjective: See 09/11/16 Objective Vital Signs and I&Os Vital Signs Date Time Temp Pulse Resp B/P B/P Pulse O2 O2 Flow FiO2 Mean Ox Delivery Rate 09/12 0026 98.7 84 20 127/67 96 09/11 1622 98.4 86 18 130/80 96 09/11 1309 98.0 74 20 148/80 97 Room Air Room Air 09/11 0913 78 140/92 09/11 0842 98.3 78 18 138/90 97 Room Air Intake & Output 09/12 1600 09/12 0800 09/12 0000 09/11 1600 09/11 0800 09/11 0000 Intake Total 100 240 50 450 Output Total 350 850 Balance 100 240 -300 -400 Intake, Oral 100 240 50 450 Number 0 Bowel Movements Output, Urine 350 850 Assessment/Plan Assessment/Plan Discussed with housestaff. Very high risk patient with recent WA and clinical exam not correlating with his imaging. See note dated 09/11/16. Core Measures/Miscellaneous Venous Thromboembolism VTE Risk Factors: Acute medical illness VTE Contraindications: No Contraindications VTE Diagnosis: No VTE Type: NONE VTE Confirmed by (Test): NONE Beta Kashif Is Beta Kashif a Home Med? No Antibiotics Is Patient on Antibiotics? No
--- NOTE | 2016-09-12 08:31 | Event Note ---
Event Note Event Note: I contacted Dr. Moore this morning and get a call back from him regarding timing of surgical intervention on Mr. Barboza, and Dr. Moore is thinking at this point doing surgery is very high risk due to recent NC in September and he would like to wait for 1-2 more weeks and patient should be discharged to short-term rehabilitation/acute rehabilitation and can follow-up as outpatient to surgical intervention. He mentioned that the earliest possible surgical intervention could be in first week of September.
--- NOTE | 2016-09-12 08:43 | PN- Housestaff ---
[facility] 09/12/16 0843: Subjective Follow-up For: 1.CVA 2.Coronary artery disease 3.Carotid artery stenosis 4.Hyperlipidemia 5.DM 6.CKD Tele-Events Since Last Visit: Abdominal sinus rhythm, heart rate 75-85, BBB, no overnight events Subjective: Stable and offer no complaints. Patient is laying on bed looks relaxed and comfortable. He reports improvement of his right hand weakness. Patient was nothing by mouth for possible carotid endarterectomy by vascular surgery, however vascular surgery not planning surgery today(please refer to the event note). Review of Systems Constitutional: Reports: no symptoms. Objective Last 24 Hrs of Vital Signs/I&O Vital Signs Date Time Temp Pulse Resp B/P B/P Pulse O2 O2 Flow FiO2 Mean Ox Delivery Rate 09/12 08 97.6 77 18 130/76 97 Room Air 09/12 0026 98.7 84 20 127/67 96 09/11 1622 98.4 86 18 130/80 96 09/11 1309 98.0 74 20 148/80 97 Room Air Room Air 09/11 0913 78 140/92 Intake & Output 09/12 1600 09/12 0800 09/12 0000 Intake Total 100 Output Total Balance 100 Intake, Oral 100 Physical Exam General Appearance: Alert, Oriented X3, Cooperative, No Acute Distress HEENT: Atraumatic, PERRLA, EOMI, Mucous Membr. moist/pink Cardiovascular: Regular Rate, Normal S1, Normal S2, No Murmurs Lungs: Clear to Auscultation, Normal Air Movement Abdomen: Soft, No Tenderness Neurological: Normal Speech, Strength at 5/5 X4 Ext (except right arm 3/5 this am) Extremities: No Clubbing, No Cyanosis, No Edema Current Medications: Current Medications Sig/Jabier Start time Last Medication Dose Route Stop Time Status Admin Acetaminophen 650 MG Q6P PRN 09/07 1415 AC 09/10 PO 0949 Allopurinol 100 MG DAILY 09/08 1000 AC 09/11 PO 0913 Aspirin Buffered 325 MG DAILY 09/08 1000 AC 09/11 PO 0913 Atorvastatin Calcium 80 MG 1700 09/07 1700 AC 09/11 PO 1602 Clopidogrel Bisulfate 75 MG DAILY 09/08 1000 AC 09/11 PO 0913 Colchicine 600 MCG BID 09/07 220 AC 09/11 PO 2227 Heparin Sodium 5,000 UNIT Q8 09/07 2200 AC 09/12 (Porcine) SC 0600 Hydromorphone HCl 1 MG Q6P PRN 09/07 1415 AC 09/08 IV 0158 Insulin Aspart 0 TIDAC 09/07 1700 AC 09/10 SC 1717 Insulin Detemir 10 UNITS BID 09/07 2200 AC 09/11 SC 2228 Lisinopril 10 MG DAILY 09/08 1000 AC 09/11 PO 0913 Omeprazole 40 MG DAILY AC 09/08 0700 AC 09/11 PO 0631 Last 24 Hrs of Lab/Eriberto Results Last 24 Hrs of Labs/Mics: Laboratory Tests 09/12/16 0722: Anion Gap 11, Estimated GFR 32 L, BUN/Creatinine Ratio 20.5 Assessment/Plan Assessment: #Acute Right Caudate CVA/Symptomatic Carotid stenosis Head MRI and CT shows bilateral caudate head infarcts (currently a new 7 mm acute infarct within the left caudate head) and Moderate small vessel ischemia. patinet have some word finding difficulties. C/O subjective RUE weakness. Carotid ultrasound showed bilateral stenosis of 50%-79%. Patient passed swallowing evaluation. Repeated MRI head yesterday showed Several additional small* areas of acute infaction seen in L MCA cortical territory. On this basis neurology recommended early L CEA rather than waiting 1-[address] Moore recommended that surgery is risky at the time and it would be better to do it as an outpatient within 1-2 weeks * Continue Plavix and Aspirin * Continue Atorvastatin * Instruct the patient to follow with Dr. Moore after discharge to be scheduled for carotid endarterectomy. #CAD/Hx of WI and stents with post WI pericarditis. No chest pain at present. Cardiology recommended that potential risks of carotid endarterectomy are outweighed by the potential benefits given his present neurological status. * Continue Colchicine. * Continue aspirin * Continue Plavix #SAMRA on top of CKD * At presentation Cr was 1.9 increased to 2.1 this a.m. this most likely because patient was kept nothing by mouth yesterday and this morning for possible endarterectomy. * Hydrate with IV fluids * Avoid nephrotoxins, including lisinopril and allopurinol * Monitor renal function #DM2 Poorly controlled with Hgb A1C 12.7 * Continue Levemir * Monitor blood glucose. * We will instruct patient to follow with his PCP as an outpatient to further address his diabetes mellitus medication #Hypertension * Continue lisinopril #Hyperlipidemia * Continue atorvastatin. Diabetic diet DVT prophylaxis heparin subcutaneous Full code Problem List: 1. Stroke Pain Ratin Pain Location: NA Pain Goal: Remain pain free Pain Plan: See A&P Tomorrow's Labs & Rationales: See A&P RAFAELA PANIAGUA MD 09/12/16 1130: Attending MD Review Statement Attending Statement Attending MD Statement: examined this patient, discuss w/resident/PA/NETWORK OPERATIONS ANALYST, agreed w/resident/PA/NETWORK OPERATIONS ANALYST, reviewed EMR data (avail), amended to note Attending Assessment/Plan: The patient was seen and discussed with house staff. Await input from vascular surgery regarding Left CEA.
--- NOTE | 2016-09-12 08:45 | Discharge Summary ---
See Addendum Visit Information Visit Dates Admission Date: 09/07/16 Discharge Date: 09/14/16 Hospital Course Course Attending Physician: RAFAELA PANIAGUA MD Primary Care Physician: RICKEY LOPEZ APRN Consulting Request: Consulting Specialty: Neurology Consulting Physician: Dr. Rivas Reason for Consult: stroke Hospital Course: Patient is 65-year-old gentleman with past medical history significant for attention, dyslipidemia, gout, diabetes mellitus type 2, coronary artery disease with recent acute coronary syndrome anterior STEMI status post PCI on and renal insufficiency, chronic kidney disease stage II came to emergency room with chief complaint of increased confusion and right-sided arm weakness and numbness with difficulty finding words to make sentences. He presented to ER on October 06 as well with similar complaints but left AMA and came back after 2 days. Vitals at the time of admission showed Blood pressure 161/77, pulse rate of 76, respiration rate of 15, temperature of 96.4, saturation of 97 percent on room air Labs shows WBC of 10.4, hemoglobin of 13.6, hematocrit of 39.8, chemistries shows sodium of 140, potassium of 4.2, creatinine of 1.9, Bun a 34, glucose of 253 EKG shows normal sinus rhythm MRI of the head shows There is a small 7 mm acute infarct within the left caudate head. - Moderate chronic microangiopathy and a chronic lacunar infarct within the right caudate head. Patient was admitted to [facility] and following issues were addressed 1. Acute ischemic stroke on dual antiplatelet therapy On admission patient didn't was out of TPA window as he left AMA 2 days prior to admission. And exact time of his current symptoms cannot be assessed. Neurology consultation was placed and seen by neurologist the same day. Patient passed bedside as well as formal swallow evaluation. Patient was started on brisa inhibitors for aggressive blood pressure control. Initial had MRI showed small 7 elevator acute infarct within left caudate head and moderate chronic micro-angiopathic and chronic lacunar infarct within the right caudate head. Carotid Doppler showed hemodynamically significant stenosis consistent with 50- 79% reduced diameter of the proximal left internal carotid artery. Patient was also assessed by vascular surgery and first given significant stenosis plan was made to keep him nothing by mouth from Sunday evening and carotid stent placement was planned for Sunday morning but cardiology for optimization as well as stable neurological status was required before surgical intervention. As Mr. Da neurological deficit were out of proportion to the size of acute infarct seen on first MRI and there was suspicion that either his infarct extended or has ongoing ischemic penumbra and repeat MRI was suggested that again showed new subcentimeter left-sided border zone infarcts in the frontoparietal lobes. And also a few scattered punctate acute infarct in left occipitotemporal lobes as well. Evolving early subacute infarct in left caudate head and moderate chronic white matter microangiopathy was noted. His surgery was postponed as was clear surgery was thinking patient is very high risk for surgery at this point given recent history of myocardial infarction and as his clinical exam was not correlating with his imaging study and vascular surgery thought that carotid stenosis most likely is not contributing and his current symptoms/acute stroke. Now the plan is to send patient to acute/short-term rehabilitation and vascular surgery will follow-up with him and schedule him for endarterectomy most likely in first week of September. We will discharge patient on aspirin, Plavix and high-dose statins. Patient was also instructed to f/u with neurology. Patient was also started on lisinopril during admission to neurology but we held it for a few days because of a SAMRA and we will hold it on discharge and patient will follow-up with neurology/PCP and they will guide him to restart lisinopril later 2. h/o Post PR pericarditis On Admission patient was on colchicine, high dose of aspirin and aspirin was reduced to 325 daily and we continued colchicine. 3. History of diabetes mellitus hemoglobin A1c of 12.1 Were done to monitor blood sugar levels at provided with Levemir and NovoLog according to sliding scale. He was on metformin as before admission which was held during admission and as he has acute kidney injury we will continue holding metformin and we'll discharge patient on Levemir 10 units twice a day. 4. History of hyperlipidemia Patient was continued on statin but dose was increased 5. History of acute coronary syndrome status post pericarditis High-dose aspirin was discontinued and he was continued patient on colchicine, aspirin 325 daily. Symptom-free during hospital stay. 6. History of gout Patient was on allopurinol because it him on allopurinol for first few days but later on because of acute kidney injury was a held but we will continue on discharge 7. Acute on chronic kidney injury Patient has creatinine level of 1.9 on admission which was almost at his baseline that was decreased to 1.6 next day but patient was started on lisinopril on September 08 and from his creatinine started going up to 1.8 then to 2.1 and 2.2. His lisinopril was stopped due to his nephro toxic effects as well as it was thought that they should might have renal artery stenosis and on starting brisa inhibitors his creatinine function get worse and we avoided nephrotoxic agents. Patient was already on cholchicine and allopurinol. 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 Patient was hydrated on September 13 and his creatinine came back to 1.8 on September 14. Nephrology consultation was placed. We will hold his lisinopril and most likely would not restart and in case of high blood pressure we might consider starting him on calcium channel blockers but during his hospital stay his blood pressure remained stable slightly on the elevated side but we want mild permissive hypertension due to underlying carotid stenosis and ischemic infarct. Complications: none Allergies: Coded Allergies: No Known Allergies (06/16/16) Significant Procedures: SERVICE DATE: 09/11/16- EXAM TYPE: MRI - MRA-HEAD; MRI-HEAD W/O IVORY EXAMINATION: MR BRAIN WITHOUT CONTRAST MR ANGIOGRAPHY HEAD WITHOUT CONTRAST CLINICAL INFORMATION: Confusion with right arm weakness. Evaluate for infarction. COMPARISON: Brain MRI dated 09/07/2016. TECHNIQUE: Multiplanar, multisequence imaging of the brain was obtained without intravenous administration of contrast. 3-D [id number] MR angiography is performed. Multiple 3-D reformatted images are processed on the technologist workstation. The study is limited due to patient motion artifacts. FINDINGS: There are new subcentimeter acute infarcts in a parasagittal and linear border zone distribution within the left frontoparietal lobes at the level of the centrum semiovale extending to the vertex. There are a few small acute infarcts as well in the left occipitotemporal lobes. In addition to the previously seen left caudate head infarct, there is a new subcentimeter acute infarct in the left parietal lobe posteriorly. The ventricles are normal in size. No mass effect or midline shift is seen. Moderate chronic white matter microangiopathic changes are again noted with generalized volume loss. Chronic infarcts again noted in the right basal ganglia. No extra-axial fluid collections are seen. The brainstem and cerebellum are normal. No pathologic magnetic susceptibility artifact is identified on the gradient refocused acquisition. The craniovertebral junction, marrow signal, and midline structures are normal. The major intracranial flow voids at the level of the [place] are preserved. The dural venous sinus flow voids are maintained. The mastoid air cells and paranasal sinuses are fairly well aerated. MRA of the [place] demonstrates a normal caliber to the anterior and posterior circulation vasculature. No stenoses or occlusions are seen. No vascular malformation or aneurysms are identified. IMPRESSION: New subcentimeter left-sided border zone infarcts in the frontoparietal lobes. Few scattered punctate acute infarcts in the left occipitotemporal lobes as well. Evolving early subacute infarct in the left caudate head. Moderate chronic white matter microangiopathy. Normal MRA of the head. Pertinent Lab Results: SERVICE DATE: 09/07/16 EXAM TYPE: US - [id number] DOPPLER EXAMINATION: DUPLEX BILATERAL CAROTID ULTRASOUND CLINICAL INFORMATION: Acute stroke COMPARISON: None. TECHNIQUE: Duplex bilateral carotid US was performed using real-time ultrasound and Doppler techniques (integrating B-mode 2D vascular images, Doppler spectral analysis and color flow Doppler imaging). These techniques were utilized to interrogate the extracranial carotid and vertebral arteries bilaterally. The degree of stenosis is based off criteria similar to NASCET. FINDINGS: 1. On the right: Plaque is present at the carotid bifurcation extending into the right ICA. However, velocities are normal and do not suggest a stenosis of greater than 50% diameter reduction in the right ICA. The vertebral artery is patent demonstrating antegrade flow. The right external carotid artery shows no significant stenosis. 2. On the left: There is a hemodynamically significant stenosis correlating to 50-79% diameter reduction of the proximal internal carotid artery. A moderate amount of hyperechoic plaque is noted within the proximal internal and external carotid arteries. The peak systolic and diastolic velocities as measured within the proximal internal carotid artery equals 239 and 99 cm/s respectively. The vertebral artery is patent demonstrating antegrade flow. The left external carotid artery shows no significant stenosis. IMPRESSION: Hemodynamically significant stenoses consistent with a 50-79% diameter reduction of the proximal left internal carotid artery. A hemodynamically significant stenosis of greater than 50% is not present on the right. Disposition Summary Disposition Principal Diagnosis: Stroke with left-sided frontoparietal lobe infarct Additional Diagnosis: Coronary artery disease Carotid artery stenosis Hyperlipidemia DM CKD Discharge Disposition: SNF Discharge Instructions General Discharge Information Code Status: Full Code Patient's Diet: Heart Healthy diet Patient's Activity: As tolerated with assistance Follow-Up Instructions/Appts: Please follow-up with your primary care physician in one week of discharge Please follow-up with neurology as outpatient in 1-2 weeks of discharge Please follow-up with Dr. Moore/vascular surgery in 1 week of discharge and he will guide you regarding endarterectomy/was clear surgery most likely in first week of September Medications at Discharge Discharge Medications: Stop taking the following medications: Atorvastatin Calcium (Atorvastatin Calcium) 40 MG TABLET ORAL Every night Qty = 30 Lisinopril (Lisinopril) 10 MG TABLET ORAL DAILY Qty = 30 Aspirin (Ecotrin*) 325 MG TABLET. ORAL THREE TIMES DAILY Qty = 90 Metformin HCl (Metformin HCl) 500 MG TABLET ORAL TWICE DAILY Qty = 20 Continue taking these medications: Clopidogrel Bisulfate (Clopidogrel) 75 MG TABLET 1 Tablet ORAL DAILY Qty = 30 Comments: Last Taken: 07/11/16 Time: 9 AM Allopurinol (Allopurinol) 100 MG TABLET 1 Tablet ORAL as needed for GOUT Comments: Last Taken: 07/11/16 Time: 9 AM Colchicine (Colchicine) 0.6 MG TABLET 1 Tablet ORAL TWICE DAILY as needed for PERICARDITIS Omeprazole (Omeprazole) 40 MG CAPSULE. 1 Capsule ORAL DAILY as needed for GI Start taking the following new medications: Atorvastatin Calcium (Atorvastatin Calcium) 80 MG TABLET 80 Milligram ORAL 5 PM Days = 30 No Refills Aspirin (Ecotrin*) 325 MG TABLET. 325 Milligram ORAL DAILY Days = 30 No Refills Insulin Detemir (Levemir) 100 UNIT/ML VIAL 10 Units Inject into fatty tissue TWICE DAILY Qty = 30 No Refills Copies To: RICKEY LOPEZ APRN Attending Review Statement Documenting Attending: RAFAELA PANIAGUA MD
--- NOTE | 2016-09-12 11:14 | PN- Cardiology ---
Subjective Subjective: More awake and alert, however, still confused and having difficulty articulating his thoughts. Able to partial lift his right arm which she wasn't able to do yesterday. Objective Vital Signs and I&Os Vital Signs Date Time Temp Pulse Resp B/P B/P Pulse O2 O2 Flow FiO2 Mean Ox Delivery Rate 09/12 08 97.6 77 18 130/76 97 Room Air 09/12 0026 98.7 84 20 127/67 96 09/11 1622 98.4 86 18 130/80 96 09/11 1309 98.0 74 20 148/80 97 Room Air Room Air Intake & Output 09/12 1600 09/12 0800 09/12 0000 09/11 1600 09/11 0800 09/11 0000 Intake Total 100 240 50 450 Output Total 350 850 Balance 100 240 -300 -400 Intake, Oral 100 240 50 450 Number 0 Bowel Movements Output, Urine 350 850 Physical Exam: Well-developed, well-nourished male in no acute distress with nasal oxygen in place. Vital signs: See above. HEENT: Normocephalic, atraumatic, EOMI, slightly dry mucous membranes. Neck: No JVD, no bruits. Lungs: Decreased breath sounds bilaterally. Heart: S1, S2 with no murmur, gallop, or rub appreciated. PMI fifth ICS at MCL. Abdomen: Soft, nontender, positive bowel sounds. Extremities: No edema. Current Medications: Current Medications Sig/Jabier Start time Last Medication Dose Route Stop Time Status Admin Acetaminophen 650 MG Q6P PRN 09/07 1415 AC 09/10 PO 0949 Allopurinol 100 MG DAILY 09/08 1000 DC 09/11 PO 0913 Aspirin Buffered 325 MG DAILY 09/08 1000 AC 09/12 PO 1140 Atorvastatin Calcium 80 MG 1700 09/07 1700 AC 09/11 PO 1602 Clopidogrel Bisulfate 75 MG DAILY 09/08 1000 AC 09/12 PO 1140 Colchicine 600 MCG BID 09/07 2200 AC 09/12 PO 1139 Heparin Sodium 5,000 UNIT Q8 09/07 2199 AC 09/12 (Porcine) SC 0600 Hydromorphone HCl 1 MG Q6P PRN 09/07 1415 AC 09/08 IV 0158 Insulin Aspart 0 TIDAC 09/07 1700 AC 09/10 SC 1717 Insulin Detemir 10 UNITS BID 09/07 2200 AC 09/12 SC 1140 Lisinopril 10 MG DAILY 09/08 1000 DC 09/11 PO 0913 Omeprazole 40 MG DAILY AC 09/08 0700 AC 09/11 PO 0631 Sodium Chloride 1,000 ML Q13H 09/12 0915 09/12 IV 1156 Results Last 48 Hrs of Labs/Mics: Laboratory Tests 09/12/16 0722: Anion Gap 11, Estimated GFR 32 L, BUN/Creatinine Ratio 20.5 09/11/16 0611: Anion Gap 12, Estimated GFR 38 L, BUN/Creatinine Ratio 20.0 Assessment/Plan Assessment/Plan 65-year-old male with a hx of long-standing tobacco use, presumed COPD , HTN, HLD, gout, DM, pericarditis, & CAD (anterior STEMI s/p PCI on 06/16/2016) and who presented to the ED twice recently (09/05/2016 and 09/07/2016) with complaints of transient "confusion and right arm/leg paralysis", c/w TIA, w/ a brain MRI (09/07/2016) c/w a small 7 mm acute infarct within the left caudate head, as well as, moderate chronic microangiopathy and a chronic lacunar infarct within the right caudate head and a carotid ultrasound that revealed a hemodynamically significant stenosis consistent with a 50-79% diameter reduction of the proximal left internal carotid artery who had a repeat MRI done present 09/11/2016), given waxing and waning symptoms out of proportion to the initial MRI findings. This revealed a new subcentimeter left-sided border zone infarcts in the frontoparietal lobes and a few scattered punctate acute infarcts in the left occipitotemporal lobes as well c/w evolving early subacute infarct in the left caudate head. From a cardiac standpoint, Mr. Barboza has had no complaints of exertional chest discomfort, palpitations, shortness of breath, etc. and had percutaneous coronary interventions approximately 3 months ago for which she has been on dual antiplatelet therapy since that time, without evidence of residual high-grade coronary artery disease. Based on the above, it is felt that the potential risks of carotid endarterectomy are outweighed by the potential benefits given his present waxing and waning neurological status. Continue telemetry? Yes
[2016-09-12 15:30] VITALS: BP 116/64
[2016-09-13 00:11] VITALS: BP 118/58
[2016-09-13 08:00] VITALS: BP 166/90
--- NOTE | 2016-09-13 09:29 | PN- Housestaff ---
See Addendum Subjective Follow-up For: 1.CVA 2.Coronary artery disease 3.Carotid artery stenosis 4.Hyperlipidemia 5.DM 6.CKD Tele-Events Since Last Visit: Normal sinus rhythm, heart rate 65-73, no overnight events Subjective: Stable, improvement on the right arm strength, no overnight events reported, patient offers no complaints. Patient will most likely get discharged to short- term rehabilitation and be instructed to follow with vascular surgery within 1-2 weeks. Review of Systems Constitutional: Reports: no symptoms. Objective Last 24 Hrs of Vital Signs/I&O Vital Signs Date Time Temp Pulse Resp B/P B/P Pulse O2 O2 Flow FiO2 Mean Ox Delivery Rate 09/13 0800 97.3 78 20 166/90 96 Room Air 09/13 0011 97.7 72 16 118/58 97 Room Air 09/12 1530 98.2 84 16 116/64 96 Room Air Intake & Output 09/13 1600 09/13 0800 09/13 0000 Intake Total 720 840 Output Total 250 550 Balance 470 290 Intake, IV 600 600 Intake, Oral 120 240 Number 1 Bowel Movements Output, Urine 250 550 Physical Exam General Appearance: Alert, Oriented X3, Cooperative, No Acute Distress HEENT: Atraumatic, PERRLA, EOMI, Mucous Membr. moist/pink Cardiovascular: Regular Rate, Normal S1, Normal S2, No Murmurs Lungs: Clear to Auscultation, Normal Air Movement Abdomen: Normal Bowel Sounds, Soft, No Tenderness Neurological: Normal Speech, Strength at 5/5 X4 Ext, Cranial Nerves 3-12 NL Extremities: No Clubbing, No Cyanosis, No Edema Current Medications: Current Medications Sig/Jabier Start time Last Medication Dose Route Stop Time Status Admin Acetaminophen 650 MG Q6P PRN 09/07 1415 AC 09/10 PO 0949 Aspirin Buffered 325 MG DAILY 09/08 1000 AC 09/13 PO 0902 Atorvastatin Calcium 80 MG 1700 09/07 1700 AC 09/12 PO 1649 Clopidogrel Bisulfate 75 MG DAILY 09/08 1000 AC 09/13 PO 0902 Colchicine 600 MCG BID 09/07 220 AC 09/13 PO 0902 Heparin Sodium 5,000 UNIT Q8 09/07 2199 AC 09/13 (Porcine) SC 0540 Hydromorphone HCl 1 MG Q6P PRN 09/07 1415 AC 09/08 IV 0158 Insulin Aspart 0 TIDAC 09/07 1700 09/12 SC 1653 Insulin Detemir 10 UNITS BID 09/07 2200 AC 09/13 SC 0902 Omeprazole 40 MG DAILY AC 09/08 0700 AC 09/13 PO 0540 Sodium Chloride 1,000 ML Q13H 09/12 0915 AC 09/13 IV 1047 Last 24 Hrs of Lab/Eriberto Results Last 24 Hrs of Labs/Mics: Laboratory Tests 09/13/16 0625: Anion Gap 10, Estimated GFR 30 L, BUN/Creatinine Ratio 19.5 Assessment/Plan Assessment: #Acute Right Caudate CVA/Symptomatic Carotid stenosis Head MRI and CT shows bilateral caudate head infarcts (currently a new 7 mm acute infarct within the left caudate head) and Moderate small vessel ischemia. patinet have some word finding difficulties. C/O subjective RUE weakness. Carotid ultrasound showed bilateral stenosis of 50%-79%. Patient passed swallowing evaluation. Repeated MRI head yesterday showed Several additional small* areas of acute infaction seen in L MCA cortical territory. On this basis neurology recommended early L CEA rather than waiting 1-[address] Moore recommended that surgery is risky at the time and it would be better to do it as an outpatient within 1-2 weeks * Continue Plavix and Aspirin * Continue Atorvastatin * Instruct the patient to follow with Dr. Moore after discharge to be scheduled for carotid endarterectomy. #CAD/Hx of SC and stents with post SC pericarditis. No chest pain at present. Cardiology recommended that potential risks of carotid endarterectomy are outweighed by the potential benefits given his present neurological status. * Continue Colchicine. * Continue aspirin * Continue Plavix #SAMRA on top of CKD * At presentation Cr was 1.9 increased to 2.2 this a.m. * Hydrate with IV fluids * Avoid nephrotoxins, including lisinopril and allopurinol * Monitor renal function #DM2 Poorly controlled with Hgb A1C 12.7 * Continue Levemir * Monitor blood glucose. * We will instruct patient to follow with his PCP as an outpatient to further address his diabetes mellitus medication #Hypertension * Continue lisinopril #Hyperlipidemia * Continue atorvastatin. Diabetic diet DVT prophylaxis heparin subcutaneous Full code Problem List: 1. Stroke Pain Ratin Pain Location: na Pain Goal: Remain pain free Pain Plan: See assessment and plan Tomorrow's Labs & Rationales: BEP to follow renal function Consulting Request: Consulting Specialty: Neurology Consulting Physician: Dr. Rivas Reason for Consult: stroke
--- NOTE | 2016-09-13 13:15 | PN- Cardiology ---
Subjective Subjective: No cardiac complaints. Denies any chest discomfort, palpitations, shortness of breath, etc. Neurologically unchanged. Objective Vital Signs and I&Os Vital Signs Date Time Temp Pulse Resp B/P B/P Pulse O2 O2 Flow FiO2 Mean Ox Delivery Rate 09/13 08 97.3 78 20 166/90 96 Room Air 09/13 0011 97.7 72 16 118/58 97 Room Air 09/12 1530 98.2 84 16 116/64 96 Room Air Intake & Output 09/13 1600 09/13 0800 09/13 0000 09/12 1600 09/12 0800 09/12 0000 Intake Total 720 840 775 240 100 Output Total 250 550 250 Balance 470 290 525 240 100 Intake, IV 600 600 375 Intake, Oral 120 240 400 240 100 Number 1 Bowel Movements Output, Urine 250 550 250 Physical Exam: Well-developed, well-nourished male in no acute distress with nasal oxygen in place. Vital signs: See above. HEENT: Normocephalic, atraumatic, EOMI, slightly dry mucous membranes. Neck: No JVD, no bruits. Lungs: Decreased breath sounds bilaterally. Heart: S1, S2 with no murmur, gallop, or rub appreciated. PMI fifth ICS at [facility]. Abdomen: Soft, nontender, positive bowel sounds. Extremities: No edema. Assessment/Plan Assessment/Plan 65-year-old male with a hx of long-standing tobacco use, presumed COPD , HTN, HLD, gout, DM, pericarditis, & CAD (anterior STEMI s/p PCI on 06/16/2016) and who presented to the ED twice recently (09/05/2016 and 09/07/2016) with complaints of transient "confusion and right arm/leg paralysis", c/w TIA, w/ a brain MRI (09/07/2016) c/w a small 7 mm acute infarct within the left caudate head, as well as, moderate chronic microangiopathy and a chronic lacunar infarct within the right caudate head and a carotid ultrasound that revealed a hemodynamically significant stenosis consistent with a 50-79% diameter reduction of the proximal left internal carotid artery who had a repeat MRI done present 09/11/2016), given waxing and waning symptoms out of proportion to the initial MRI findings. This revealed a new subcentimeter left-sided border zone infarcts in the frontoparietal lobes and a few scattered punctate acute infarcts in the left occipitotemporal lobes as well c/w evolving early subacute infarct in the left caudate head. From a cardiac standpoint, Mr. Barboza has had no complaints of exertional chest discomfort, palpitations, shortness of breath, etc. and had percutaneous coronary interventions approximately 3 months ago for which she has been on dual antiplatelet therapy since that time, without evidence of residual high-grade coronary artery disease. Based on the above, it is felt that the potential risks of carotid endarterectomy are outweighed by the potential benefits given his present waxing and waning neurological status. Continue telemetry? Yes
--- NOTE | 2016-09-13 15:06 | Patient Discharge Instructions ---
Discharge Instructions General Discharge Information You were seen/treated for: acute ischemic stroke Special Instructions: Please follow up with your PCP in 1 week of discharge Please follow up with vascular surgery in [address] Moore will guide you and schedule you for carotid endarterectomy Please follow up with Dr. Rivas , neurology in 1` week of discharge please take medications as prescribed Acute Coronary Syndrome Inclusion Criteria At DC or during hospital stay patient has or had the following: ACS DIAGNOSIS No Discharge Core Measures Meds if any: Prescribed or Continued at Discharge Meds if any: NOT Prescribed or Continued at Discharge Congestive Heart Failure Inclusion Criteria At DC or during hospital stay patient has or had the following: CHF DIAGNOSIS No Discharge Core Measures Meds if any: Prescribed or Continued at Discharge Meds if any: NOT Prescribed or Continued at Discharge Cerebrovascular accident Inclusion Criteria At DC or during hospital stay patient has or had the following: CVA/TIA Diagnosis Yes Discharge Core Measures Meds if any: Prescribed or Continued at Discharge Meds if any: NOT Prescribed or Continued at Discharge Venous thromboembolism Inclusion Criteria VTE Diagnosis No VTE Type NONE VTE Confirmed by (Test) NONE Discharge Core Measures - Per Current guidelines, there needs to be overlap - treatment for the first 5 days of Warfarin therapy. - If discharged on Warfarin prior to 5 days of - overlap therapy, the patient will need to be - assessed for post discharge needs including - *Post discharge parental anticoagulation - *Warfarin and/or parental anticoagulation education - *Follow up date to check INR post discharge At least 5 days overlap therapy as Inpatient No Meds if any: Prescribed or Continued at Discharge Note: Overlap Therapy is Warfarin and Anticoagulant Meds if any: NOT Prescribed or Continued at Discharge
[2016-09-13 16:02] VITALS: BP 136/76
--- NOTE | 2016-09-13 19:17 | ULTRASOUND REPORT ---
EXAMINATION: US RETROPERITONEAL COMPLETE (RENAL) CLINICAL INFORMATION: Increasing creatinine. Worsening renal function.. COMPARISON: 07/09/2016. TECHNIQUE: Real-time imaging of the kidneys and bladder. FINDINGS: RIGHT KIDNEY: 11.2 x 5 x 5.6 cm (SAG x AP x TRV). The kidney is normal in size, contour, and echogenicity. Renal cortical thickness is normal. There is an upper pole simple cyst measuring 2.1 x 2.8 x 2.4 cm. There is a midpole simple cyst measuring 2.1 x 1.9 x 1.7 cm. There is a lower pole simple cyst measuring 2.2 x 2.4 x 2 cm. No calculi or solid parenchymal lesions. No hydronephrosis. LEFT KIDNEY: 10.4 x 5.6 x 4.1 cm (SAG x AP x TRV). The kidney is normal in size, contour, and echogenicity. Renal cortical thickness is normal. There is a midpole simple cyst measuring 2.4 cm. There is a lower pole simple cyst measuring 2 cm. No calculi or solid parenchymal lesions. No hydronephrosis. BLADDER: Well-distended and normal. Bilateral ureteral jets are demonstrated. IMPRESSION: No change from prior. No acute findings. Bilateral simple renal cysts. No other abnormality.
[2016-09-13 22:52] VITALS: BP 164/80
--- NOTE | 2016-09-14 07:51 | PN- Housestaff ---
See Addendum Subjective Follow-up For: 1.CVA 2.Coronary artery disease 3.Carotid artery stenosis 4.Hyperlipidemia 5.DM 6.CKD Tele-Events Since Last Visit: Normal sinus rhythm, heart rate 60s to 70s, no overnight events Subjective: Patient has a significant right hand motor improvement, he is complaining of mild tingling on the right hand. Patient still has difficulty finding the right words, but markedly improved compared to yesterday. Patient denies any currently active complaints Review of Systems Constitutional: Reports: no symptoms. Objective Last 24 Hrs of Vital Signs/I&O Vital Signs Date Time Temp Pulse Resp B/P B/P Pulse O2 O2 Flow FiO2 Mean Ox Delivery Rate 09/14 0800 98.1 78 20 160/80 96 Room Air 09/13 2252 98.4 70 18 164/80 97 Room Air 09/13 1602 98.0 81 18 136/76 98 Intake & Output 09/14 1600 09/14 0800 09/14 0000 Intake Total 1005 840 Output Total 300 400 400 Balance -300 605 440 Intake, IV 525 600 Intake, Oral 480 240 Number 0 Bowel Movements Output, Urine 300 400 400 Physical Exam General Appearance: Alert, Oriented X3, Cooperative, No Acute Distress HEENT: Atraumatic, PERRLA, EOMI, Mucous Membr. moist/pink Cardiovascular: Regular Rate, Normal S1, Normal S2, No Murmurs Lungs: Clear to Auscultation, Normal Air Movement Abdomen: Normal Bowel Sounds, Soft, No Tenderness Neurological: Strength at 5/5 X4 Ext (except right arm 4/5) Extremities: No Clubbing, No Cyanosis, No Edema Current Medications: Current Medications Sig/Jabier Start time Last Medication Dose Route Stop Time Status Admin Acetaminophen 650 MG Q6P PRN 09/07 1415 AC 09/10 PO 0949 Aspirin Buffered 325 MG DAILY 09/08 1000 AC 09/14 PO 0846 Atorvastatin Calcium 80 MG 1700 09/07 1700 AC 09/13 PO 1926 Clopidogrel Bisulfate 75 MG DAILY 09/08 1000 AC 09/14 PO 0846 Colchicine 600 MCG BID 09/07 2199 AC 09/14 PO 0846 Heparin Sodium 5,000 UNIT Q8 09/07 2199 AC 09/14 (Porcine) SC 0628 Hydromorphone HCl 1 MG Q6P PRN 09/07 1415 AC 09/08 IV 0158 Insulin Aspart 0 TIDAC 09/07 1700 AC 09/13 SC 1257 Insulin Detemir 10 UNITS BID 09/07 2200 AC 09/14 SC 0849 Omeprazole 40 MG DAILY AC 09/08 0700 AC 09/14 PO 0628 Sodium Chloride 1,000 ML Q13H 09/12 0915 AC 09/14 IV 0720 Last 24 Hrs of Lab/Eriberto Results Last 24 Hrs of Labs/Mics: Laboratory Tests 09/14/16 1115: Ur Random Creatinine Pending, U Random Total Protein Pending 09/14/16 0615: Anion Gap 10, Estimated GFR 38 L, BUN/Creatinine Ratio 22.2 09/13/161929: Urine Color YEL, Urine Clarity CLEAR, Urine pH 6.0, Ur Specific [place] 1.020, Urine Protein 30 H, Urine Ketones NEG, Urine Nitrite NEG, Urine Bilirubin NEG, Urine Urobilinogen 0.2, Ur Leukocyte Esterase NEG, Ur Microscopic SEDIMENT EXAMINED, Urine RBC 5-10 H, Urine WBC RARE, Urine Bacteria FEW H, Urine Hemoglobin MOD H, Urine Glucose NEG 09/13/161929: Ur Random Creatinine 95.4, Ur Random Sodium 109 H, Ur Random Potassium 38.2, Fraction Sodium Excret 1.8 H Assessment/Plan Assessment: #Acute Right Caudate CVA/Symptomatic Carotid stenosis Head MRI and CT shows bilateral caudate head infarcts (currently a new 7 mm acute infarct within the left caudate head) and Moderate small vessel ischemia. patinet have some word finding difficulties. C/O subjective RUE weakness. Carotid ultrasound showed bilateral stenosis of 50%-79%. Patient passed swallowing evaluation. Repeated MRI head yesterday showed Several additional small* areas of acute infaction seen in L MCA cortical territory. On this basis neurology recommended early L CEA rather than waiting 1-[address] Moore recommended that surgery is risky at the time and it would be better to do it as an outpatient within 1-2 weeks * Continue Plavix and Aspirin * Continue Atorvastatin * Instruct the patient to follow with Dr. Moore after discharge to be scheduled for carotid endarterectomy. 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 No chest pain at present. Cardiology recommended that potential risks of carotid endarterectomy are outweighed by the potential benefits given his present neurological status. * Continue Colchicine. * Continue aspirin * Continue Plavix * Patient was cleared for carotid endarterectomy. #SAMRA on top of CKD * At presentation Cr was 1.9 initially improved to 1.6, then increased to 2.2 yesterday. This morning is 1.8 * Hydrate with IV fluids * Avoid nephrotoxins, including lisinopril * Patient will be discharged of TAMARA inhibitor, beta nephrology he will eventually need to be started on TAMARA inhibitor when creatinine improved. * Monitor renal function, even after post discharge * We will send for protein to creatinine ratio will be sent before discharge * SPEP will be sent before discharge #DM2 Poorly controlled with Hgb A1C 12.7 * Continue Levemir * Monitor blood glucose. * We will instruct patient to follow with his PCP as an outpatient to further address his diabetes mellitus medication #Hypertension * We will hold lisinopril #Hyperlipidemia * Continue atorvastatin. Diabetic diet DVT prophylaxis heparin subcutaneous Full code Problem List: 1. Stroke Pain Ratin Pain Location: NA Pain Goal: Remain pain free Pain Plan: See A&P Tomorrow's Labs & Rationales: None as patient most likely will be discharged to short-term rehabilitation later today Consulting Request: Consulting Specialty: Neurology Consulting Physician: Dr. Rivas Reason for Consult: stroke
[2016-09-14 08:00] VITALS: BP 160/80
--- NOTE | 2016-09-14 09:56 | Cons- Nephrology ---
General Information and HPI Consulting Request Date of Consult: 09/14/16 Requested By: RAFAELA PANIAGUA MD Reason for Consult: CKD/worsening renal function Source of Information: patient, family, old records Exam Limitations: confusion History of Present Illness: 65 yr old WM w hx DM, HTN, CAD, & CKD admit 09/07/16 w R sided weakness & confusion--> found to have new CVA w L KURT. Known mod, stage 3B, CKD w baseline Cr ~ 1.6 June this yr before cardiac cath. Cr up to 1.9 on admit falling to 1.6 before rising 2.2 yesterday w/o hypotension, IV contrast, or NSAIDs. On ACEI as outpt & continued here till 09/11. Started on IV NS overnight w improvement Cr 1.8 today. Known dip proteinuria w/o hx UTI or stones. No diuretics, vomiting, diarrhea. Denies voiding difficulty. No SOB. Allergies/Medications Allergies: Coded Allergies: No Known Allergies (06/16/16) Home Med List: Allopurinol 100 MG TABLET 1 TAB PO PRN GOUT (Reported) Aspirin (Ecotrin*) 325 MG TABLET.DR 650 MG PO TID PERICARDITIS Atorvastatin Calcium 40 MG TABLET 1 TAB PO QPM CHOLESTEROL (Reported) Clopidogrel Bisulfate (Clopidogrel) 75 MG TABLET 1 TAB PO DAILY BLOOD THINNER (Reported) Colchicine 0.6 MG TABLET 1 TAB PO BID PRN PERICARDITIS (Reported) Lisinopril 10 MG TABLET 1 TAB PO DAILY BP (Reported) Metformin HCl 500 MG TABLET 1 TAB PO BID HYPERGLYCEMIA Omeprazole 40 MG CAPSULE.DR 1 CAP PO DAILY PRN GI (Reported) Current Medications: Current Medications Sig/Jabier Start time Last Medication Dose Route Stop Time Status Admin Acetaminophen 650 MG Q6P PRN 09/07 1415 AC 09/10 PO 0949 Aspirin Buffered 325 MG DAILY 09/08 1000 AC 09/14 PO 0846 Atorvastatin Calcium 80 MG 1700 09/07 1700 AC 09/13 PO 1926 Clopidogrel Bisulfate 75 MG DAILY 09/08 1000 AC 09/14 PO 0846 Colchicine 600 MCG BID 09/07 2200 AC 09/14 PO 0846 Heparin Sodium 5,000 UNIT Q8 09/07 2200 AC 09/14 (Porcine) SC 0628 Hydromorphone HCl 1 MG Q6P PRN 09/07 1415 AC 09/08 IV 0158 Insulin Aspart 0 TIDAC 09/07 1700 AC 09/13 SC 1257 Insulin Detemir 10 UNITS BID 09/07 2200 09/14 SC 0849 Omeprazole 40 MG DAILY 09/08 0700 09/14 PO 0628 Sodium Chloride 1,000 ML Q13H 09/12 0915 09/14 IV 0720 Review of Systems Review of Systems Constitutional: Reports: no symptoms. EENTM: Reports: no symptoms. Cardiovascular: Reports: no symptoms. Respiratory: Reports: no symptoms. GI: Reports: no symptoms. Genitourinary: Reports: no symptoms. Musculoskeletal: Reports: no symptoms. Skin: Reports: no symptoms. Neurological/Psychological: Reports: see HPI. Hematologic/Endocrine: Reports: no symptoms. Immunologic/Allergic: Reports: no symptoms. All Other Systems: Reviewed and Negative Past History Travel History Traveled to [place] past 21 day No Medical History Neurological: NONE EENT: hearing loss Cardiovascular: CAD, hypertension, hyperlipidemia, STEMI, (DOES TAKE THE MEDS) STENT PLACEMENT 06/16 PCI/KIRK to LAD and RCA; PCI/POBA ostial Dx 2. 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 Home Who Do You Live With? self Services at Home: None Primary Language: Italian Smoking Status: Former Smoker ETOH Use: denies use Illicit Drug Use: denies illicit drug use Living Will? no Functional Ability ADLs Independent: dressing, eating, toileting, bathing. Ambulation: independent IADLs Independent: shopping, housework, finances, food prep, telephone, transportation , medication admin. Exam & Diagnostic Data Vital Signs and I&O Vital Signs Date Time Temp Pulse Resp B/P B/P Pulse O2 O2 Flow FiO2 Mean Ox Delivery Rate 09/14 0800 98.1 78 20 160/80 96 Room Air 09/13 2252 98.4 70 18 164/80 97 Room Air 09/13 1602 98.0 81 18 136/76 98 Intake & Output 09/14 0400 09/13 1600 09/13 04009/12 1600 09/12 0400 Intake Total 694 037 0899 840 1015 100 Output Total 700 400 600 550 250 Balance 65 440 1170 290 765 100 Intake, IV 150 421 0611 600 375 Intake, Oral 240 240 570 240 640 100 Number 1 Bowel Movements Output, Urine 700 400 600 550 250 Physical Exam General Appearance: well developed/nourished, no apparent distress, alert Head: atraumatic, normal appearance Eyes: Bilateral: normal appearance. 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 tested, motor weakness (R arm) , oriented to place & person - not oriented to time Skin: intact, warm/dry Lymphatic: no anterior cervical jordan, no axillary Results Pertinent Lab Results: Laboratory Tests 09/14 09/13 09/13 0615 1930 1930 Chemistry Sodium (137 - 145 mmol/L) 141 Potassium (3.5 - 5.1 mmol/L) 4.5 Chloride (98 - 107 mmol/L) 108 H Carbon Dioxide (22 - 30 mmol/L) 23 Anion Gap (5 - 16) 10 BUN (9 - 20 mg/dL) 40 H Creatinine (0.7 - 1.2 mg/dL) 1.8 H Estimated GFR (>60 ml/min) 38 L BUN/Creatinine Ratio (7 - 25 %) 22.2 Urines Urine Color (YEL,AMB,STR) YEL Urine Clarity (CLEAR) CLEAR Urine pH (5.0 - 8.0) 6.0 Ur Specific [place] (1.001 - 1.035) 1.020 Urine Protein (NEG,<30 MG/DL) 30 H Urine Ketones (NEG) NEG Urine Nitrite (NEG) NEG Urine Bilirubin (NEG) NEG Urine Urobilinogen (0.1 - 1.0 EU/dl) 0.2 Ur Leukocyte Esterase (NEG) NEG Ur Microscopic SEDIMENT EXAMINED Urine RBC (0 - 5 /HPF) 5-10 H Urine WBC (0 - 2 /HPF) RARE Urine Bacteria (NEG/NONE) FEW H Urine Hemoglobin (NEG) MOD H Ur Random Creatinine (mg/dL) 95.4 Ur Random Sodium (30 - 90 mmol/L) 109 H Ur Random Potassium (mmol/L) 38.2 Fraction Sodium Excret (<1% %) 1.8 H Urine Glucose (N MG/DL) NEG 09/13 09/12 0625 0722 Chemistry Sodium (137 - 145 mmol/L) 140 141 Potassium (3.5 - 5.1 mmol/L) 4.6 4.6 Chloride (98 - 107 mmol/L) 107 106 Carbon Dioxide (22 - 30 mmol/L) 23 24 Anion Gap (5 - 16) 10 11 BUN (9 - 20 mg/dL) 43 H 43 H Creatinine (0.7 - 1.2 mg/dL) 2.2 H 2.1 H Estimated GFR (>60 ml/min) 30 L 32 L BUN/Creatinine Ratio (7 - 25 %) 19.5 20.5 Imaging/Other Studies: Renal US: RIGHT KIDNEY: 11.2 x 5 x 5.6 cm (SAG x AP x TRV). The kidney is normal in size, contour, and echogenicity. Renal cortical thickness is normal. There is an upper pole simple cyst measuring 2.1 x 2.8 x 2.4 cm. There is a midpole simple cyst measuring 2.1 x 1.9 x 1.7 cm. There is a lower pole simple cyst measuring 2.2 x 2.4 x 2 cm. No calculi or solid parenchymal lesions. No hydronephrosis. LEFT KIDNEY: 10.4 x 5.6 x 4.1 cm (SAG x AP x TRV). The kidney is normal in size, contour, and echogenicity. Renal cortical thickness is normal. There is a midpole simple cyst measuring 2.4 cm. There is a lower pole simple cyst measuring 2 cm. No calculi or solid parenchymal lesions. No hydronephrosis. MR w/o IV gadolinium: New subcentimeter left-sided border zone infarcts in the frontoparietal lobes. Few scattered punctate acute infarcts in the left occipitotemporal lobes as well. Evolving early subacute infarct in the left caudate head. Moderate chronic white matter microangiopathy. Normal MRA of the head. Assessment/Plan Assessment/Recommendations Assessment: 1. CKD: mod, stage 3B, likely due to diabetic & HTN nephrosclerosis. No obstruction by US & can screen for occult paraprotein but unlikely. 2. SAMRA: prob prerenal due to volume contraction in face of MITZY interruption. Improving after IV NS & holding ACEI. No contraindicatoin to transfer to STR off ACEI for now but will need eventual MITZY interruption restarted. Recommendations: 1. urine prot/cr ratio 2. SPEP 3. recheck renal function @ STR 4. OK to restart lisinopril as BP allows once Cr stable
[2016-09-14] MEDS ORDERED: ATORVASTATIN CA80 M1 PO (12:19)
[2016-09-14] MEDS ORDERED: ASPIRIN EC325 M2 PO (12:19)
[2016-09-14] MEDS ORDERED: LEVEMIR100 UNIT/1 SC (12:20)
== END 2016-09-14 13:36 | DRG 64 ==
LOC: ERH 07:55 → 1NO 13:29 → ERHI 13:29 → ENRESERV 16:41 → ENTRNSPT 19:08 → EDTRNSPTTYP 19:16 → 1NO 19:28 → CMPTRNSPT 19:28 → 1NO 09-08 08:35 → ENTRNSPT 09-08 17:03 → EDTRNSPT 09-08 17:07 → EDTRNSPTTYP 09-08 17:07 → CMPTRNSPT 09-08 17:45 → 1NO 09-11 10:34 → ENPENDDIS 09-14 11:48 → 1NO 09-14 13:36
PROVIDERS: Internal Medicine Nephrology; Physician Assistant; Student in an Organized Health Care Education/Training Program; ADMIT Internal Medicine
DX: I63.233 Cerebral infarction due to unspecified occlusion or stenosis of bilateral carotid arteries (principal); G93.40 Encephalopathy, unspecified; N17.9 Acute kidney failure, unspecified; I24.1 Dressler's syndrome; G81.91 Hemiplegia, unspecified affecting right dominant side; E11.22 Type 2 diabetes mellitus with diabetic chronic kidney disease; E11.65 Type 2 diabetes mellitus with hyperglycemia; R47.01 Aphasia; N18.3 Chronic kidney disease, stage 3 (moderate); J44.9 Chronic obstructive pulmonary disease, unspecified; I25.10 Atherosclerotic heart disease of native coronary artery without angina pectoris; E78.5 Hyperlipidemia, unspecified; I25.2 Old myocardial infarction; M10.9 Gout, unspecified; Z87.891 Personal history of nicotine dependence; I12.9 Hypertensive chronic kidney disease with stage 1 through stage 4 chronic kidney disease, or unspecified chronic kidney disease; Z86.73 Personal history of transient ischemic attack (TIA), and cerebral infarction without residual deficits; Z79.84 Long term (current) use of oral hypoglycemic drugs
CPT/HCPCS: 1NP; 1NSP; 70551; 70555; 84133; 84300; 36415; 76775; 80307; 81001; 82436; 82570; 84165; 93005; 93010; 97110-GO; 97116-GO; 97161-GP; 97165-GO; 97530-GO; G0480; J1644